=== PATIENT | female | born 1960 | race Caucasian/White ===

== ENCOUNTER 2020-10-31 07:30 | Outpatient (REF) | payer BC, SELFPAY ==
--- NOTE | ~2020-10-31 | MM_ITS ---
EXAMINATION: MM SCREENING DIGITAL BREAST TOMOSYNTHESIS, BILATERAL CLINICAL INFORMATION: Screening. Asymptomatic. The lifetime risk of breast cancer based on the Tyrer-Cuzick Model is 27.4%. Additional annual screening with breast MRI may be of benefit in women with Score of 20% or greater. COMPARISON: Mammography: October 31, 2019 and studies dating back to January 30, 2012 TECHNIQUE: Digital breast tomosynthesis is performed in both the craniocaudal and mediolateral oblique views along with computer-aided detection (CAD). Synthesized 2D images are generated from the tomosynthesis. Left exaggerated craniocaudal view also performed. FINDINGS: The breasts are heterogeneously dense, which may obscure small masses (ACR BI-RADS breast composition Category c). There are no significant masses, abnormal calcifications, or other abnormalities. MM/MM tomosynthesis screening BI IMPRESSION: There are no significant changes from prior study. ASSESSMENT: BI-RADS 1: Negative RECOMMENDATION: Routine annual mammography screening. This patient's information was entered into a reminder system with a target due date for their next mammogram.
== END 2020-10-31 07:31 | disposition home or self-care (01) ==
LOC: HO.MAMMO 07:30
PROVIDERS: PCP Internal Medicine; Visit Provider Internal Medicine
DX: Z12.31 Encounter for screening mammogram for malignant neoplasm of breast (principal)
CPT/HCPCS: 77063; 77067

== ENCOUNTER 2021-07-31 07:37 | Outpatient (REF) | payer BC, SELFPAY | END 2021-07-31 07:38 | disposition home or self-care (01) | LOC: HO.LAB 07:37 | PROVIDERS: PCP Internal Medicine; Visit Provider Internal Medicine | DX: Z20.822 Contact with and (suspected) exposure to COVID-19 (principal) | CPT/HCPCS: C9803; U0003; U0005 ==

== ENCOUNTER 2021-11-11 07:41 | Outpatient (REF) | payer BC, SELFPAY ==
--- NOTE | ~2021-11-11 | MM_ITS ---
EXAMINATION: MM SCREENING DIGITAL BREAST TOMOSYNTHESIS, BILATERAL CLINICAL INFORMATION: Screening. Asymptomatic. The lifetime risk of breast cancer based on the Tyrer-Cuzick Model is 19.7%. COMPARISON: Mammography: 10/31/2020, 10/31/2019, 10/26/2019, 10/18/2018, 10/15/2017 TECHNIQUE: Digital breast tomosynthesis is performed in both the craniocaudal and mediolateral oblique views along with computer-aided detection (CAD). Synthesized 2D images are generated from the tomosynthesis. FINDINGS: The breasts are heterogeneously dense, which may obscure small masses (ACR BI-RADS breast composition Category c). Parenchymal pattern is similar to prior studies. There is no interval mass or architectural abnormality or developing density. Right breast has biopsy clip marker mid upper outer quadrant. There are stable calcifications posterior upper outer left breast along with pseudo calcifications from digital processing artifact. The axilla and skin contours are unremarkable. MM/MM tomosynthesis screening BI IMPRESSION: There are no significant changes from prior exams. ASSESSMENT: BI-RADS 2: Benign RECOMMENDATION: Routine annual mammography screening. This patient's information was entered into a reminder system with a target due date for their next mammogram.
== END 2021-11-11 07:42 | disposition home or self-care (01) ==
LOC: HO.MAMMO 07:41
PROVIDERS: PCP Internal Medicine; Visit Provider Internal Medicine
DX: Z12.31 Encounter for screening mammogram for malignant neoplasm of breast (principal)
CPT/HCPCS: 77063; 77067

== ENCOUNTER 2022-09-11 07:21 | Outpatient (REF) | payer BC, SELFPAY ==
[2022-09-11 07:25] LABS: MANUAL DIFF FLAG NO
[2022-09-11 08:13] LABS: Basophils Absolute Auto 0.1 X10*3/uL (0.0-0.2); Basophils Percent Auto 1.4 % (0-2); Eosinophils Absolute Auto 0.2 X10*3/uL (0.0-0.4); Eosinophils Percent Auto 4.4 % (0-4); Hematocrit 44.8 % (37.0-47.0); Hemoglobin 14.4 g/dl (12.0-16.0); Imm Gran Abs Auto 0.01 X10*3/uL (0.00-0.03); Imm Gran Pct Auto 0.2 % (0.0-0.4); Lymphocytes Absolute Auto 1.7 X10*3/uL (1.2-4.9); Lymphocytes Percent Auto 40.3 % (20-40); Mean Corpuscular HGB Conc 32.1 g/dl (31.0-35.0); Mean Corpuscular Hemoglobin 29.4 pg (27.0-33.0); Mean Corpuscular Volume 91.4 fL (80.0-98.0); Mean Platelet Volume 9.5 fL (9.4-12.3); Monocytes Absolute Auto 0.3 X10*3/uL (0.1-1.2); Monocytes Percent Auto 7.7 % (2-11); Platelet Count 280 X10*3/uL (160-400); Red Cell Distribution Width 12.3 % (11.0-16.0); White Blood Count 4.3 X10*3/uL (4.8-10.8)
[2022-09-11 08:42] LABS: Alanine Aminotransferase 12 U/L (0-31); Albumin Level 4.5 g/dL (3.5-5.0); Alkaline Phosphatase 57 U/L (39-117); Anion Gap 13 (12-20); Aspartate Amino Transferase 20 U/L (5-31); Blood Urea Nitrogen 17 mg/dL (9-16); Calcium 9.7 mg/dL (8.4-10.2); Carbon Dioxide 27 mmol/L (22-29); Chloride 106 mmol/L (96-108); Cholesterol 245 mg/dL; Estimated Glomerular Filt Rate > 60; Glucose Fasting 82 mg/dL (60-99); HDL Cholesterol 70 mg/dL; LDL Cholesterol Calculated 157 mg/dl; Potassium 4.6 mmol/L (3.3-5.1); Sodium 141 mmol/L (135-145); Triglycerides 93 mg/dL
[2022-09-11 08:58] LABS: Free T4 (Free Thyroxine) 1.05 ng/dL (0.71-1.85)
== END 2022-09-11 07:22 | disposition home or self-care (01) ==
LOC: HO.LAB 07:21
PROVIDERS: PCP Internal Medicine; Visit Provider Internal Medicine
DX: Z00.00 Encounter for general adult medical examination without abnormal findings (principal)
CPT/HCPCS: 36415; 80053; 80061; 84439; 84443; 85025

== ENCOUNTER 2022-12-16 07:35 | Outpatient (REF) | payer BC, SELFPAY ==
--- NOTE | ~2022-12-16 | MM_ITS ---
EXAMINATION: MM SCREENING DIGITAL BREAST TOMOSYNTHESIS, BILATERAL CLINICAL INFORMATION: Screening. Asymptomatic. The lifetime risk of breast cancer based on the Tyrer-Cuzick Model is 20.8%. Additional annual screening with breast MRI may be of benefit in women with a score of 20% or greater. COMPARISON: Mammography: November 11, 2021 and studies dating back to July 08, 2014 TECHNIQUE: Digital breast tomosynthesis is performed in both the craniocaudal and mediolateral oblique views along with computer-aided detection (CAD). Synthesized 2D images are generated from the tomosynthesis. FINDINGS: The breasts are extremely dense, which lowers the sensitivity of mammography (ACR BI-RADS breast composition Category d). There are no significant masses, abnormal calcifications, or other abnormalities. MM/MM tomosynthesis screening BI IMPRESSION: No significant changes from prior exam. ASSESSMENT: BI-RADS 1: Negative RECOMMENDATION: Routine annual mammography screening. This patient's information was entered into a reminder system with a target due date for their next mammogram.
== END 2022-12-16 07:36 | disposition home or self-care (01) ==
LOC: HO.MAMMO 07:35
PROVIDERS: Visit Provider Internal Medicine
DX: Z12.31 Encounter for screening mammogram for malignant neoplasm of breast (principal)
CPT/HCPCS: 77063; 77067

== ENCOUNTER 2022-12-25 07:34 | Outpatient (REF) | payer BC, SELFPAY ==
[2022-12-25 08:51] LABS: Cholesterol 247 mg/dL; HDL Cholesterol 75 mg/dL; LDL Cholesterol Calculated 158 mg/dl; Triglycerides 71 mg/dL
== END 2022-12-25 07:35 | disposition home or self-care (01) ==
LOC: HO.LAB 07:34
PROVIDERS: PCP Internal Medicine; Visit Provider Internal Medicine
DX: E78.00 Pure hypercholesterolemia, unspecified (principal)
CPT/HCPCS: 36415; 80061

== ENCOUNTER 2023-04-29 12:18 | Outpatient (REF) | payer BC, SELFPAY ==
[2023-04-29 14:20] LABS: Appearance Urine Cloudy; Color Urine Yellow; Glucose Urine UA Negative (Negative); Leukocyte Esterase Urine Trace (Negative); Nitrite Urine Negative (Negative); PH 6.5 (5.0-9.0); Specific Gravity - Urine 1.015 (1.005-1.025); UMIC TRIGGER UACC YES; Urine Blood Trace (Negative); Urine Ketones Negative (Negative); Urine Protein Negative (Neg-Trace)
[2023-04-29 14:32] LABS: Bacteria Urine 4+ (None Seen); Hyaline Casts Urine 0-2 /LPF (0-2); Squamous Epithelial Cell Urine 0-2 /HPF (0-2); UACC Culture Trigger YES; WBC Urine >50 /HPF (0-5)
== END 2023-04-29 12:19 | disposition home or self-care (01) ==
LOC: HO.LAB 12:18
PROVIDERS: PCP Internal Medicine; Visit Provider Internal Medicine
DX: R30.0 Dysuria (principal)
CPT/HCPCS: 81001; 81003; 87086; 87088; 87186

== ENCOUNTER 2023-12-21 07:57 | Outpatient (REF) | payer BC, SELFPAY ==
--- NOTE | ~2023-12-21 | MM_ITS ---
EXAMINATION: MM SCREENING DIGITAL BREAST TOMOSYNTHESIS, BILATERAL CLINICAL INFORMATION: Screening. Asymptomatic. COMPARISON: Mammography: This study is compared with prior exams dating back to 2019. TECHNIQUE: Digital breast tomosynthesis is performed in both the craniocaudal and mediolateral oblique views along with computer-aided detection (CAD). Synthesized 2D images are generated from the tomosynthesis. FINDINGS: The breasts are extremely dense, which lowers the sensitivity of mammography (ACR BI-RADS breast composition Category d). There are no significant masses, abnormal calcifications, or other abnormalities. There is a tissue marker present in the upper outer quadrant of the right breast from prior benign percutaneous biopsy. There are unchanged, benign calcifications in the upper outer quadrant of the left breast. MM/MM tomosynthesis screening BI IMPRESSION: No mammographic evidence of malignancy. ASSESSMENT: BI-RADS BI-RADS 2 - Benign Findings RECOMMENDATION: Routine annual mammography screening. 1 year F/U This examination should not preclude the clinical evaluation of a suspicious palpable abnormality. This patient's information was entered into a reminder system with a target due date for their next mammogram.
== END 2023-12-21 07:58 | disposition home or self-care (01) ==
LOC: HO.MAMMO 07:57
PROVIDERS: Absent Provider Obstetrics & Gynecology; PCP Internal Medicine; Visit Provider Internal Medicine
DX: Z12.31 Encounter for screening mammogram for malignant neoplasm of breast (principal)
CPT/HCPCS: 77063; 77067

== ENCOUNTER → 2023-12-21 08:00 | Outpatient (BNV) | payer BC, SELFPAY | PROVIDERS: Absent Provider Obstetrics & Gynecology; PCP Internal Medicine; Visit Provider Radiology Diagnostic Radiology | DX: Z12.31 Encounter for screening mammogram for malignant neoplasm of breast (principal) | CPT/HCPCS: 77063; 77067 ==

== ENCOUNTER 2024-05-17 15:59 | Outpatient (AMB) | payer BC, SELFPAY ==
--- NOTE | 2024-05-17 16:11 | A.OFFPC_ITS ---
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 Will order labs. Mammo is up to date. Due for colon screen, will refer to GI. Pt c/o palpitations. She notices this mostly when running on the treadmill. Will do an EKG in office. Will also order holter. [facility] Social History Housing: House Patient Tobacco Use Status: Never used Tobacco e-Cigarette/Vaping Use: Never Used service: No Current occupational status: employed Current occupational exposures/hazards: No Cognitive needs: No Hearing needs: No Vision needs: Yes Questionnaire PHQ-9 Over the last 2 weeks, how often have you been bothered by any of the following problems? 1. Little interest or pleasure in doing things: not at all 2. Feeling down, depressed, or hopeless: not at all 3. Trouble falling or staying asleep, or sleeping too much: not at all 4. Feeling tired or having little energy: not at all 5. Poor appetite or overeating: not at all 6. Feeling bad about yourself - or that you are a failure or have let yourself or your family down: not at all 7. Trouble concentrating on things, such as reading the newspaper or watching television: not at all 8. Moving or speaking so slowly that other people could have noticed. Or the opposite - being so fidgety or restless that you have been moving around a lot more than usual: not at all 9. Thoughts that you would be better off or of hurting yourself in some way: not at all Total score: 0 Depression Screening Interpretation: Negative Depression Screening Done: Yes 87264 - PHQ-9 Billing: Yes Source: Developed by Drs. Manuel Yo, Margoth Raines, Dao Escobar and colleagues, with an educational mary from [employer]. Thrive Questionnaire I am a: Patient Within the past 12 months, did the food you bought not last and you didn't have the money to get more?: Never true Within the past 12 months, did you worry whether your food would run out before you got money to buy more?: Never true Do you have trouble paying for medicines?: No Do you have trouble getting transportation to medical appointments?: No Do you have trouble paying your heating and electricity bill?: No Do you have trouble taking care of your child, family member or friend?: No Do you have trouble with day-to-day activities such as bathing, preparing meals, shopping, managing finances, etc.?: No Are you interested in more education?: No Please select the resources that you would like help with: None Currently or been in a relationship where the following occur: No concerns repo rted THRIVE Score: 0 AUDIT C Alcohol Use Questionnaire (AUDIT-C) 1. How often do you have a drink containing alcohol?: 2-3 times a week 2. How many drinks containing alcohol do you have on a typical day when you are drinking?: 3 or 4 3. How often do you have six or more drinks on one occasion?: Monthly Total Score: 6 Score Reviewed/Action Taken: No KALEE-7 AMB Questionnaire KALEE-7 Date KALEE - 7 assessed: 05/17/24 Feeling nervous, anxious, or on edge: 0 = Not at all Not being able to stop or control worryin = Not at all Worrying too much about different things: 0 = Not at all Trouble relaxin = Not at all Being so restless that it is hard to sit still: 0 = Not at all Becoming easily annoyed or irritable: 0 = Not at all Feeling afraid as if something awful might happen: 0 = Not at all Total KALEE-7 score (0-4 normal; 5-9 mild; 10-14 moderate; 15-21 severe): 0 Source: Developed by Drs. Manuel Yo, Margoth Raines, Dao Escobar and colleagues, with an educational mary from [employer]. KALEE-7 Assessment Billing KALEE-7 Assessment Tool: KALEE-7 Assessment 83554 Review of Systems Const Denies chills and Denies fever(s) Eyes Denies blurry vision ENT Denies vertigo, Denies dizziness and Denies sore throat Card Denies chest pain at rest, Denies chest pain with activity, Denies diaphoresis, Denies dyspnea and Denies dyspnea on exertion Resp Denies cough, Denies dyspnea, Denies dyspnea on exertion and Denies wheezing GI Denies abdominal pain, Denies melena, Denies hematochezia, Denies constipation, Denies diarrhea and Denies loose stools Denies hematuria Musc Denies numbness and Denies tingling Skin/Breast Denies lesions Neuro Denies vertigo, Denies dizziness, Denies numbness and Denies tingling Psych Denies anxiety, Denies depression, Denies homicidal ideation, Denies suicidal ideation and Denies other (substance abuse) Aller/Immun Denies wheezing Physical exam (Primary Care) Vital Signs: Last Vital Signs Pulse 51 05/17/24 16:21 BP 112/68 05/17/24 16:21 Pulse Ox 97 05/17/24 16:21 Oxygen Delivery Method Room Air 05/17/24 16:21 BMI result Body Mass Index 18.0 Tobacco/Smoking Status: Tobacco use Status Tobacco use date assessed 05/17/24 05/17/24 16:28 Patient Tobacco Use Status Never used Tobacco 05/17/24 16:28 e-Cigarette/Vaping Use Never Used 05/17/24 16:28 PHQ-9: PHQ-9 Score PHQ-9: Total score 0 05/17/24 16:28 Depression Screening Interpretation: Negative Currently or been in a relationship where the following occur: No concerns reported Const General: cooperative Nutritional Appearance: well nourished Orientation/consciousness: patient oriented x3 HENMT Head: Yes normal to inspection, Yes normocephalic and Yes atraumatic Ears: TM's normal bilaterally Eyes General: appearance normal, both eyes and all related structures Alignment and Position: alignment normal and position normal Neck Other: right thyroid ? nodule/enlarged Neck: Yes normal visual inspection, Yes no lymphadenopathy and Yes supple Resp Effort & Inspection: normal respiratory effort Auscultation: clear to auscultation bilaterally Cardio Rate: regular rate Rhythm: regular rhythm Heart sounds: S1 normal heart sound present, S2 normal heart sound present and no murmurs GI Palpation (GI): Soft to palpation and nontender Auscultation: normal bowel sounds Skin Rashes: no rashes Neuro General: patient oriented x3, moves all extremities, no focal motor deficits and deep tendon reflexes 2+ bilaterally Romberg Test: Negative Psych Appearance: grossly normal Mental Status: mental status grossly normal Speech and movement: Normal speech and movement present Affect: normal affect Attitude: cooperative Thought process: Normal thought process present Thought content: Normal thought content present Insight: Good insight present (Psych) Judgement: Good judgement present (Psych) Assessment and Plan Assessment & Plan (1) Physical exam: Code(s): Z00.00 - Encounter for general adult medical examination without abnormal findings Plan: Labs ordered (2) Postmenopausal: Code(s): Z78.0 - Asymptomatic menopausal state Plan: Vitamin D ordered (3) Screening for colon cancer: Code(s): Z12.11 - Encounter for screening for malignant neoplasm of colon (4) Palpitations: Code(s): R00.2 - Palpitations Plan: holter ordered (5) Thyroid nodule: Code(s): E04.1 - Nontoxic single thyroid nodule Plan: US ordered Plan The patient agreed to the use of a manager medical writing for this encounter. Scribed for OMERO Urias- by Katerina Marion manager medical writing, on 05/17/2024 at 16:35 EST. Orders: Orders Comprehensive [place]. Panel Fast Today Z00.00 - Encounter for general adult medical examination without abnormal findings TSH reflex Free T4 Today Z00.00 - Encounter for general adult medical examination without abnormal findings Lipid Panel Today Z00.00 - Encounter for general adult medical examination without abnormal findings Vitamin D 25-OH Total Today Z78.0 - Asymptomatic menopausal state ECG 3 day holter monitor Today R00.2 - Palpitations US thyroid Today E04.1 - Nontoxic single thyroid nodule Complete Blood Count Auto Diff Today Z00.00 - Encounter for general adult medical examination without abnormal findings UA CC w/rflx Micro + Cult Today Z00.00 - Encounter for general adult medical examination without abnormal findings AMB EKG-In Office Today R00.2 - Palpitations Referrals Gastroenterology Referral Z12.11 - Encounter for screening for malignant neoplasm of colon Coding Level of Care Code New Pt Prev Care 40-64y(30587) Diagnoses Physical exam Z00.00 Postmenopausal Z78.0 Screening for colon cancer Z12.11 Palpitations R00.2 Thyroid nodule E04.1 Additional Codes KALEE-7 Assessment Billing - KALEE-7 Assessment Tool: KALEE-7 Assessment [id number] ([id number])
[2024-05-17 16:21] VITALS: BP 112/68; PULSE 51; O2SAT 97; BMI 18.0
== END 2024-05-17 17:03 | disposition home or self-care (01) ==
PROVIDERS: PCP Internal Medicine; Visit Provider Nurse Practitioner Family
DX: Z00.00 Encounter for general adult medical examination without abnormal findings (principal); Z78.0 Asymptomatic menopausal state; Z12.11 Encounter for screening for malignant neoplasm of colon; R00.2 Palpitations; E04.1 Nontoxic single thyroid nodule

== ENCOUNTER → 2024-05-17 15:59 | Outpatient (BNVA) | payer BC, SELFPAY | PROVIDERS: PCP Internal Medicine; Visit Provider Nurse Practitioner Family | DX: Z00.01 Encounter for general adult medical examination with abnormal findings (principal); R00.2 Palpitations; E04.1 Nontoxic single thyroid nodule; Z78.0 Asymptomatic menopausal state | CPT/HCPCS: 96127 ==

== ENCOUNTER 2024-06-01 06:16 | Outpatient (REF) | payer BC, SELFPAY ==
[2024-06-01 10:05] LABS: MANUAL DIFF FLAG NO
[2024-06-01 10:07] LABS: Basophils Absolute Auto 0.1 X10*3/uL (0.0-0.2); Basophils Percent Auto 1.6 % (0-2); Eosinophils Absolute Auto 0.1 X10*3/uL (0.0-0.4); Eosinophils Percent Auto 4.2 % (0-4); Hematocrit 39.9 % (37.0-47.0); Lymphocytes Absolute Auto 1.3 X10*3/uL (1.2-4.9); Lymphocytes Percent Auto 42.3 % (20-40); Mean Corpuscular HGB Conc 32.6 g/dl (31.0-35.0); Mean Corpuscular Hemoglobin 30.4 pg (27.0-33.0); Mean Corpuscular Volume 93.2 fL (80.0-98.0); Mean Platelet Volume 10.3 fL (9.4-12.3); Monocytes Absolute Auto 0.2 X10*3/uL (0.1-1.2); Monocytes Percent Auto 7.1 % (2-11); Neutrophils Absolute Auto 1.4 x10*3/uL (2.0-8.3); Neutrophils Percent Auto 44.8 % (45-73); Platelet Count 229 X10*3/uL (160-400); Red Blood Count 4.28 X10*6/uL (4.20-5.50); Red Cell Distribution Width 13.1 % (11.0-16.0); White Blood Count 3.1 X10*3/uL (4.8-10.8)
[2024-06-01 10:08] LABS: Appearance Urine Clear; Color Urine Yellow; Glucose Urine UA Negative (Negative); Leukocyte Esterase Urine Negative (Negative); Nitrite Urine Negative (Negative); PH 5.5 (5.0-9.0); UMIC TRIGGER UACC YES; Urine Blood Trace (Negative); Urine Ketones Negative (Negative); Urine Protein Negative (Neg-Trace)
[2024-06-01 10:20] LABS: Bacteria Urine None Seen (None Seen); Hyaline Casts Urine 0-2 /LPF (0-2); RBC Urine 0-2 /HPF (0-2); Squamous Epithelial Cell Urine 0-2 /HPF (0-2); WBC Urine 0-5 /HPF (0-5)
[2024-06-01 10:37] LABS: Alanine Aminotransferase 15 U/L (0-31); Albumin Level 4.2 g/dL (3.5-5.0); Alkaline Phosphatase 59 U/L (39-117); Anion Gap 12 (12-20); Aspartate Amino Transferase 25 U/L (5-31); Bilirubin Total 0.6 mg/dL (0.0-1.0); Blood Urea Nitrogen 21 mg/dL (9-16); Calcium 9.4 mg/dL (8.4-10.2); Carbon Dioxide 25 mmol/L (22-29); Chloride 108 mmol/L (96-108); Cholesterol 218 mg/dL (<200); Estimated Glomerular Filt Rate > 60; Glucose Fasting 96 mg/dL (60-99); HDL Cholesterol 82 mg/dL (>40); LDL Cholesterol Calculated 124 mg/dL (<100); Potassium 4.4 mmol/L (3.3-5.1); Sodium 141 mmol/L (135-145); Total Protein 6.8 g/dL (6.5-8.0); Triglycerides 60 mg/dL (<150)
[2024-06-01 10:41] LABS: TSH reflex Free T4 1.17 uIU/mL (0.32-4.0); Vitamin D 25-OH Total 63.9 ng/mL (>30)
== END 2024-06-01 06:17 | disposition home or self-care (01) ==
LOC: HO.HMGCLDS 06:16
PROVIDERS: PCP Nurse Practitioner Family; Visit Provider Nurse Practitioner Family
DX: Z00.00 Encounter for general adult medical examination without abnormal findings (principal); Z78.0 Asymptomatic menopausal state
CPT/HCPCS: 36415; 80053; 80061; 81001; 81003; 82306; 84443; 85025

== ENCOUNTER → 2024-06-02 07:22 | Outpatient (REF) | payer BC, SELFPAY ==
--- NOTE | ~2024-06-02 | US_ITS ---
EXAMINATION: US THYROID CLINICAL INFORMATION: Nontoxic single thyroid nodule. COMPARISON: None available. TECHNIQUE: Linear transducer grayscale and color Doppler examination with attention to the region of the thyroid. FINDINGS: SIZE: Measurements of the thyroid lobes and nodules are given in sagittal, anteroposterior and transverse dimensions respectively. Right Thyroid Lobe: 5.2 x 1.9 x 1.9 cm, volume 10.0 mL. Parenchyma: The gland echotexture is homogeneous. Thyroid vascularity is normal. Left Thyroid Lobe: 4.4 x 1.2 x 1.2 cm, volume 3.3 mL. Parenchyma: The gland echotexture is homogeneous. Thyroid vascularity is normal. Isthmus: 0.09 cm in maximum AP dimension. Estimated total number of nodules greater than or equal to 1 cm: 1. Platemaker nodules are described as follows: 1. Location: Right mid/lower pole. Size: 2.7 x 1.3 x 1.9 cm, volume 3.3 mL. Nodule characteristics: Composition: Solid/almost completely solid (2). Echogenicity: Isoechoic (1). Shape: Not taller than wide (0). Margins: Smooth (0). Echogenic Foci: Punctate echogenic foci (3). ACR TI-RADS total points: 6 ACR TI-RADS category: 4 NODES: No lymphadenopathy is seen in the tissue surrounding the thyroid gland. US/US thyroid IMPRESSION: A dominant nodule in the right middle Pole 2.7 cm TR 4 nodule . Given its size and ACR TI-RADS category, this nodule meets the ACR criteria recommendation for FNA. FNA recommended. Findings being called to the referring provider's office. ACR TI-RADS RECOMMENDATION REFERENCE: Ultrasound-guided fine-needle aspiration, followup ultrasound, no further follow up. * TR1 (0 point) and TR2 (2 points): No FNA or follow up. * TR3 (3 points): FNA if more than or equal to 2.5 cm in maximum dimension, followup ultrasound in 1, 3 and 5 years if 1.5 to 2.4 cm in maximum dimension. * TR4 (4-6 points): FNA if more than or equal to 1.5 cm in maximum dimension, followup ultrasound in 1, 2, 3 and 5 years if 1 to 1.4 cm in maximum dimension. * TR5 (more than or equal to 7 points): FNA if more than or equal to 1 cm in maximum dimension, followup ultrasound every year for 5 years if 0.5 to 0.9 cm in maximum dimension. * TR3, TR4 or TR5 nodules that are below the size threshold for followup receive no follow up. Electronically signed by: Yaya Marinelli MD 07/14/2024 07:55 AM [facility] [place]
--- NOTE | 2024-06-02 07:26 | HM_ITS ---
* Total monitoring time 3 days. * Underlying rhythm is sinus with an average rate of 65/Min. * Rare supraventricular ectopy. Short runs noted. Longest 36 seconds. Maximum rate 178/Min. Suspect atrial tachycardia. * Rare ventricular ectopy. * No significant pauses or high-grade AV blocks. * Rapid/fast heartbeat in patient diary correlates with tachycardia episodes and also with sinus rhythm. MTDD
== END ==
LOC: HO.CARD 07:22
PROVIDERS: PCP Nurse Practitioner Family; Visit Provider Nurse Practitioner Family
DX: E04.1 Nontoxic single thyroid nodule (principal); R00.2 Palpitations
CPT/HCPCS: 76536; 93242

== ENCOUNTER → 2024-06-02 07:26 | Outpatient (BNV) | payer BC, SELFPAY | PROVIDERS: PCP Nurse Practitioner Family; Visit Provider Internal Medicine | DX: I47.10 Supraventricular tachycardia, unspecified (principal) | CPT/HCPCS: 93244 ==

== ENCOUNTER 2024-06-13 10:55 | Outpatient (AMB) | payer BC, SELFPAY ==
--- NOTE | 2024-06-13 10:57 | AM.OFFWIN_ITS ---
Intake Vital Signs 06/13/24 10:58 Height 5 ft 9 in Weight 119 lb BMI 17.6 BP 120/80 Blood Pressure Location Lt brachial Position Sitting Pulse 54 Pulse Source Pulse Oximeter Pulse Oximetry (%) 99 Oxygen Delivery Method Room Air Intake Visit Reasons: EP RT arm aching since blood drawn Intake Note: Patient here because she had blood work done about 2 weeks ago and her arm is still very sore/aching. Patient Tobacco Use Status: Never used Tobacco Allergies No Known Allergies [No Known Allergies*] Allergy (Unverified 06/13/24 10:59) Do you need a note to return to daycare/school/sports/work: No HPI HPI Comments History of Present Illness Details Patient is a 63-year-old female complaining of right arm achiness. She states she had blood drawn in that arm 2 weeks ago and that is when this all started. She tells me it is not actually painful it just more of a heavy and dull ache. She denies any loss of strength or sensation in her right arm. She denies any fevers. She states when she moves her arms certain ways it will aggravate the ache. [facility] Social History Housing: House Patient Tobacco Use Status: Never used Tobacco e-Cigarette/Vaping Use: Never Used service: No Current occupational status: employed Current occupational exposures/hazards: No Cognitive needs: No Hearing needs: No Vision needs: Yes Review of Systems Const All systems reviewed & are unremarkable except as noted in HPI and below Physical Exam Vital Signs: Last Vital Signs Pulse 54 06/13/24 10:58 BP 120/80 06/13/24 10:58 Pulse Ox 99 06/13/24 10:58 Oxygen Delivery Method Room Air 06/13/24 10:58 BMI result Body Mass Index 17.6 Const General: cooperative, healthy appearing, comfortable, no acute distress and well developed Orientation/consciousness: patient oriented x3 Limitations: no limitations HEENT Head: Yes normal to inspection Neck Neck: Yes normal visual inspection and Yes supple Neuro General: patient oriented x3 Extrem Right upper extremity: normal to inspection, full ROM, normal capillary refill, elbow/forearm Details: tenderness (along veins of forearm), normal ROM, ecchy mosis forearm mid anterior Details: single and distal pulses intact; no unusual warmth, no abrasions, no lacerations and no deformity and Extremity exam: right hand Details: normal to inspection, neuromotor exam normal, neurosensory exam normal and normal ROM of fingers Assessment & Plan Assessment & Plan (1) Right forearm pain: Code(s): M79.631 - Pain in right forearm Plan: Discussed with patient's PCP, we will send note to him to order ultrasound of the forearm. In the meanwhile, recommended she use warm compress in the area. If her achiness resolves she can cancel the ultrasound. Plan see above Coding Level of Care Code Est Pt Level 3 (56630) Diagnoses Right forearm pain M79.631
[2024-06-13 10:58] VITALS: BP 120/80; PULSE 54; O2SAT 99; BMI 17.6
== END 2024-06-13 11:07 | disposition home or self-care (01) ==
PROVIDERS: PCP Nurse Practitioner Family; Visit Provider Physician Assistant
DX: M79.631 Pain in right forearm (principal)

== ENCOUNTER → 2024-06-13 10:55 | Outpatient (BNVA) | payer BC, SELFPAY | PROVIDERS: PCP Nurse Practitioner Family; Visit Provider Physician Assistant ==

== ENCOUNTER 2024-06-14 12:50 | Outpatient (REF) | payer BC, SELFPAY ==
--- NOTE | ~2024-06-14 | US_ITS ---
EXAMINATION: US TRIPLEX UPPER EXTREMITY, RIGHT CLINICAL INFORMATION: Pain in right forearm COMPARISON: None available. TECHNIQUE: Color-flow triplex imaging with spectral analysis and compression Doppler was performed on the right upper extremity. FINDINGS: The right internal jugular, subclavian, and axillary veins are patent and free of thrombus. The imaged segment of the right brachiocephalic vein is patent. Spectral doppler waveforms are normal. The brachial, basilic, cephalic, radial, and ulnar veins are patent and compressible. US/US venous duplex UE RT IMPRESSION: No evidence of deep venous thrombosis involving the right upper extremity. Electronically signed by: Brenda Lindsay DO 06/14/2024 04:51 PM EDT
== END 2024-06-14 12:51 | disposition home or self-care (01) ==
LOC: HO.US 12:50
PROVIDERS: PCP Nurse Practitioner Family; Visit Provider Nurse Practitioner Family
DX: M79.631 Pain in right forearm (principal)
CPT/HCPCS: 93971

== ENCOUNTER 2024-06-27 08:02 | Outpatient (AMB) | payer BC, SELFPAY ==
[2024-06-27 08:05] VITALS: BP 110/60; PULSE 56; TEMP 36.4; O2SAT 100; BMI 17.4
--- NOTE | 2024-06-27 08:05 | MHC.OFFWIV ---
Intake Vital Signs 06/27/24 08:05 Height 5 ft 9 in Weight 118 lb BMI 17.4 BP 110/60 Blood Pressure Location Lt brachial Position Sitting Pulse 56 Pulse Source Pulse Oximeter Temp 97.6 F Temp Source Oral Pulse Oximetry (%) 100 Oxygen Delivery Method Room Air Intake Visit Reasons: EP-rt underarm sore pain going to the rt breast Intake Note: Pt is here today Rt underarn sore pain: pt says she had blood draw recent and it been hurting since Patient Tobacco Use Status: Never used Tobacco Allergies No Known Allergies [No Known Allergies*] Allergy (Unverified 06/27/24 08:07) HPI EP-rt underarm sore pain going to the rt breast HPI Details This note is constructed using voice recognition software. While every effort has been made to ensure accuracy, clutch rebuilder errors may have been included. The patient is a 63 year old female who presents to the clinic today with right axilla and breast tenderness for the past 2-3 weeks. She reports a recent MRI of her arm after a blood draw with hematoma and resultant pain, and after that pain resolved, the axilla and breast pain started. She is UTD on her mammograms, having last in November. She had a clinical breast exam approximately 1 month ago. She does not do self breast exams, and has not noticed any change in her nipple or discharge. She denies numbness, tingling in the arm. [facility] Social History Housing: House Patient Tobacco Use Status: Never used Tobacco e-Cigarette/Vaping Use: Never Used service: No Current occupational status: employed Current occupational exposures/hazards: No Cognitive needs: No Hearing needs: No Vision needs: Yes Review of Systems Const All systems reviewed & are unremarkable except as noted in HPI and below Physical Exam Vital Signs: Last Vital Signs Temp 97.6 F 06/27/24 08:05 Pulse 56 06/27/24 08:05 BP 110/60 06/27/24 08:05 Pulse Ox 100 06/27/24 08:05 Oxygen Delivery Method Room Air 06/27/24 08:05 BMI result Body Mass Index 17.4 Const General: cooperative, healthy appearing, comfortable, no acute distress and well developed Orientation/consciousness: patient oriented x3 Limitations: no limitations Chest Other: Tender to palpation along right tail of Jasmine without palpable mass. Lipoma present to right chest wall. No palpable lymphadenopathy. Chest palpation & inspection: normal inspection of the chest Breast/axilla palpation: normal palpation of the breasts and normal palpation of the axillae Skin General skin exam: no rashes or lesions noted Neuro General: patient oriented x3 Extrem Other: Strength 5/5, equal bilaterally in arms. Distal neurovascular exam intact. Full range of motion. General: Yes normal to inspection Assessment & Plan Assessment & Plan (1) Pain in right axilla: Code(s): M79.621 - Pain in right upper arm Plan: Tender to palpation in right axilla at tells spins, without palpable mass or lymphadenopathy. Recommend follow with primary care provider for ultrasound for evaluation should symptoms persist. Message to primary care team to facilitate treatment plan. Plan See above for full details and plan. Coding Level of Care Code Est Pt Level 3 (92656) Diagnoses Pain in right axilla M79.621
== END 2024-06-27 08:49 | disposition home or self-care (01) ==
PROVIDERS: PCP Nurse Practitioner Family; Visit Provider Registered Nurse
DX: M79.621 Pain in right upper arm (principal)

== ENCOUNTER 2024-06-27 08:02 | Outpatient (REF) | payer BC, SELFPAY | END 2024-06-27 08:03 | disposition home or self-care (01) | LOC: HO.MAMMO 08:02 | PROVIDERS: PCP Nurse Practitioner Family; Visit Provider Registered Nurse | DX: Z13.89 Encounter for screening for other disorder (principal) ==

== ENCOUNTER → 2024-06-29 12:57 | Outpatient (BNV) | payer BC, SELFPAY | PROVIDERS: PCP Nurse Practitioner Family; Referring Provider Nurse Practitioner Family; Visit Provider Internal Medicine Medical Oncology | DX: D72.819 Decreased white blood cell count, unspecified (principal) | CPT/HCPCS: 99204; 99213 ==

== ENCOUNTER 2024-07-01 11:52 | Outpatient (REF) | payer BC, SELFPAY ==
--- NOTE | ~2024-07-01 | US_ITS ---
EXAMINATION: MM DIAGNOSTIC DIGITAL BREAST TOMOSYNTHESIS, RIGHT Limited right breast and axillary ultrasound. CLINICAL INFORMATION: Right breast pain upper outer breast and axilla. COMPARISON: Mammography: Comparison made with available prior examinations. TECHNIQUE: Digital breast tomosynthesis is performed in both the craniocaudal and mediolateral oblique views along with computer-aided detection (CAD). Synthesized 2D images are generated from the tomosynthesis. Limited right ultrasound. FINDINGS: There are scattered areas of fibroglandular density (ACR BI-RADS breast composition Category b). Marker clip in the upper outer right breast. There are no significant masses, abnormal calcifications, or other abnormalities. Targeted color Doppler right axillary and upper outer quadrant ultrasound demonstrates normal axillary and breast tissue. There is no sonographic abnormality to correlate with the patient's right breast pain. US/US breast RT limited mamm only IMPRESSION: No mammographic or sonographic abnormality to correlate with the patient's right upper outer quadrant breast and axillary pain. Recommend clinical evaluation and follow-up. ASSESSMENT: BI-RADS BI-RADS 1 - Negative RECOMMENDATION: 1 year F/U Results were provided to the patient at time of visit by the technologist. This patient's information was entered into a reminder system with a target due date for their next mammogram. Electronically signed by: Maribeth Malloy DO 07/01/2024 03:40 PM EDT
== END 2024-07-01 11:53 | disposition home or self-care (01) ==
LOC: HO.MAMMO 11:52
PROVIDERS: PCP Nurse Practitioner Family; Visit Provider Internal Medicine
DX: R92.30 Dense breasts, unspecified (principal); N64.4 Mastodynia
CPT/HCPCS: 76642; 77061; 77065

== ENCOUNTER → 2024-07-01 12:30 | Outpatient (BNV) | payer BC, SELFPAY | PROVIDERS: PCP Nurse Practitioner Family; Visit Provider Internal Medicine | DX: N64.4 Mastodynia (principal) | CPT/HCPCS: 76642; 77061; 77065 ==

== ENCOUNTER 2024-07-04 09:53 | Outpatient (AMB) | payer BC, SELFPAY ==
[2024-07-04 10:21] VITALS: BP 112/80; PULSE 72; O2SAT 98; BMI 17.7
--- NOTE | 2024-07-04 10:21 | AM.OFFWIN_ITS ---
Intake Vital Signs 07/04/24 10:21 Height 5 ft 9 in Weight 120 lb BMI 17.7 BP 112/80 Blood Pressure Location Rt brachial Position Sitting Pulse 72 Pulse Source Pulse Oximeter Pulse Oximetry (%) 98 Intake Visit Reasons: EP underarm soreness, rt hand cold/pinky numb Intake Note: pt is here for underarm soreness, right hand cold and pinky feels numbs. had breast U/S and mammo all negative Patient Tobacco Use Status: Never used Tobacco Allergies No Known Allergies [No Known Allergies*] Allergy (Verified 07/04/24 10:21) Do you need a note to return to daycare/school/sports/work: No HPI EP underarm soreness, rt hand cold/pinky numb HPI Details This note is constructed using voice recognition software. While every effort has been made to ensure accuracy, numerical control router operator errors may have been included. The patient is a 63 year old female who presents to the clinic today with bilateral axilla pain with cold sensation intermittently in right 5th finger. She denies any injury to the area. She was last seen 06/27/24 for right axilla and breast pain for 2-3 weeks prior. She reports a recent MRI of her arm after a blood draw with hematoma and resultant pain, and after that pain resolved, the axilla and breast pain started. She since that visit had a diagnostic mammogram and ultrasound, which were normal. She denies fever, chills, cough, shortness of breath, or other URI symptoms. She reports that she works out regularly, but has avoided any activities that would strained the muscles in the past several weeks. The pain is not exacerbated by any particular movement, and not improved with any particular intervention. She does report that early on she tried a Tylenol, but did not take it again, and is unsure if it actually helped her. [facility] Medical History (Updated 06/29/24 @ 17:21 by Manisha Negrete MD) Dense breast tissue on mammogram Family History (Updated 06/29/24 @ 13:02 by Nuvia Sosa) Mother Breast cancer Maternal Aunt Lung cancer Breast cancer Social History (Updated 06/29/24 @ 13:03 by Nuvia Sosa) Household Members: Spouse Housing: House Patient Tobacco Use Status: Never used Tobacco e-Cigarette/Vaping Use: Never Used service: No Current occupational status: employed Current occupational exposures/hazards: No Cognitive needs: No Hearing needs: No Vision needs: Yes Review of Systems Const All systems reviewed & are unremarkable except as noted in HPI and below Physical Exam Vital Signs: Last Vital Signs Pulse 72 07/04/24 10:21 BP 112/80 07/04/24 10:21 Pulse Ox 98 07/04/24 10:21 BMI result Body Mass Index 17.7 Const General: cooperative, healthy appearing, comfortable, no acute distress and well developed Orientation/consciousness: patient oriented x3 Limitations: no limitations HEENT Head: Yes normal to inspection Ears: hearing grossly normal bilaterally General nose exam: Normal external nose present Face and sinus: Yes normal facial exam Eyes General: appearance normal, both eyes and all related structures Neck Neck: Yes normal visual inspection and Yes full ROM Chest Breast/axilla palpation: normal palpation of the axillae and no axillary lymphadenopathy Resp Effort & Inspection: normal respiratory effort and able to speak in complete sentences Auscultation: clear to auscultation bilaterally Cardio Rate: regular rate Rhythm: regular rhythm Heart sounds: normal S1 and S2 GI Inspection: Yes normal to inspection Palpation (GI): Soft to palpation and nontender Skin General skin exam: no rashes or lesions noted Neuro General: patient oriented x3 Extrem Other: Full range of motion of bilateral arms, including elbows, shoulders, as well as her head and neck. General: Yes normal to inspection Assessment & Plan Assessment & Plan (1) Pain in right axilla: Code(s): M79.621 - Pain in right upper arm Plan: Etiology unclear, likely musculoskeletal in nature. Advised patient to try a NSAIDs, heat/ice, and rest for symptomatic management. If symptoms persist she may benefit from physical therapy referral. Advised follow up with PCP with worsening or failure to resolve. Plan See above for full details and plan. Coding Level of Care Code Est Pt Level 3 (56964) Diagnoses Pain in right axilla M79.621
== END 2024-07-04 10:59 | disposition home or self-care (01) ==
PROVIDERS: PCP Nurse Practitioner Family; Visit Provider Registered Nurse
DX: M79.621 Pain in right upper arm (principal)

== ENCOUNTER → 2024-07-04 09:53 | Outpatient (BNVA) | payer BC, SELFPAY | PROVIDERS: PCP Nurse Practitioner Family ==

== ENCOUNTER 2024-07-04 10:59 | Outpatient (REF) | payer BC, SELFPAY ==
[2024-07-04 13:19] LABS: Urine Cytology See Pathology rpt
[2024-07-04 14:15] LABS: Appearance Urine Clear; Color Urine Yellow; Glucose Urine UA Negative (Negative); Leukocyte Esterase Urine Negative (Negative); Nitrite Urine Negative (Negative); PH 5.5 (5.0-9.0); Specific Gravity - Urine <= 1.005 (1.005-1.025); Urine Blood Negative (Negative); Urine Ketones Negative (Negative); Urine Protein Negative (Neg-Trace)
== END 2024-07-04 11:00 | disposition home or self-care (01) ==
LOC: HO.HMGCLDS 10:59
PROVIDERS: PCP Nurse Practitioner Family; Visit Provider Nurse Practitioner Family
DX: Z00.00 Encounter for general adult medical examination without abnormal findings (principal); R31.29 Other microscopic hematuria
CPT/HCPCS: 81003; 87086; 88112

== ENCOUNTER 2024-07-15 08:55 | Outpatient (AMB) | payer BC, SELFPAY ==
--- NOTE | 2024-07-15 09:00 | MHC.OFFVIS ---
Vital Signs 07/15/24 09:10 Height 5 ft 9 in Weight 118 lb 9.739 oz BMI 17.5 BP 120/64 Blood Pressure Location Lt brachial Position Standing Pulse 58 Pulse Source Pulse Oximeter Intake Visit Reasons: Thyroid Nodule-confirmed Intake Note: New patient present today for Thyroid Nodule office visit. Is Project Manager Required: No Accompanied by: Self / Same As Patient Allergies No Known Allergies [No Known Allergies*] Allergy (Verified 07/15/24 09:13) Medication List - Last Reconciled 07/15/24 by Nay Fishman MD atorvastatin 10 mg PO BEDTIME 90 days HPI Comments Details: 63-year-old female here today for initial evaluation of solitary right-sided thyroid nodule. Palpated on physical exam. No prior history. Ultrasound May 2024, I reviewed the images myself which showed a solitary right mid/lower lobe thyroid nodule measuring 2.7 cm in the largest dimension, solid, isoechoic, with macrocalcifications, TR 4 category. Meets criteria for FNA. Patient currently denies heat or cold intolerance, diarrhea or constipation, hair loss, palpitation, anxiety, mood changes, low energy, changes in appearance of eyes or vision changes, tremors, increased diaphoresis or dry skin. ? Lost 10 lbs in the last couple of years. Patient denies any difficulty swallowing, pain on swallowing or voice changes or difficulty breathing. Patient denies any history of childhood neck radiation. Denies having ever used lithium, amiodarone or biotin supplements. Patient denies any family history of thyroid cancer or thyroid disease. Review of systems Constitutional: no fevers, chills or weight loss HEENT: no changes in vision Cardiac: No chest pain, discomfort or palpitations. Pulmonary: No SOB GI:No abdominal pain, no nausea or vomiting, no anorexia, no blood in stool : no burning micturition, dysuria or increase in urinary frequency Neurologic: No dizziness, no weakness in extremities MSK: no back pain or joint stiffness Physical exam General: sitting comfortably in no acute distress HEENT: normocephalic/atraumatic, EOM intact, moist oral mucosa Neck: supple, palpable 2 cm right thyroid nodule , no dorsocervical or supraclavicular fat pads Cardiac: normal heart sounds Pulm: normal breath sounds B/L, no added breath sounds Abd: not distended, no tenderness Extremities: no edema, no signs of myxedema Neuro: AAO x3, Speech: normal, no facial droop, moving all 4 extremities Laboratory Tests 09/11/22 06/01/24 07:24 06:39 TSH 1.30 1.17 Free T4 1.05 US THYROID 06/02 CLINICAL INFORMATION: Nontoxic single thyroid nodule. COMPARISON: None available. TECHNIQUE: Linear transducer grayscale and color Doppler examination with attention to the region of the thyroid. FINDINGS: SIZE: Measurements of the thyroid lobes and nodules are given in sagittal, anteroposterior and transverse dimensions respectively. Right Thyroid Lobe: 5.2 x 1.9 x 1.9 cm, volume 10.0 mL. Parenchyma: The gland echotexture is homogeneous. Thyroid vascularity is normal. Left Thyroid Lobe: 4.4 x 1.2 x 1.2 cm, volume 3.3 mL. Parenchyma: The gland echotexture is homogeneous. Thyroid vascularity is normal. Isthmus: 0.09 cm in maximum AP dimension. Estimated total number of nodules greater than or equal to 1 cm: 1. [place] Farmer nodules are described as follows: 1. Location: Right mid/lower pole. Size: 2.7 x 1.3 x 1.9 cm, volume 3.3 mL. Nodule characteristics: Composition: Solid/almost completely solid (2). Echogenicity: Isoechoic (1). Shape: Not taller than wide (0). Margins: Smooth (0). Echogenic Foci: Punctate echogenic foci (3). ACR TI-RADS total points: 6 ACR TI-RADS category: 4 NODES: No lymphadenopathy is seen in the tissue surrounding the thyroid gland. US/US thyroid IMPRESSION: A dominant nodule in the right middle Pole 2.7 cm TR 4 nodule . Given its size and ACR TI-RADS category, this nodule meets the ACR criteria recommendation for FNA. FNA recommended. Findings being called to the referring provider's office. [facility] Medical History (Updated 06/29/24 @ 17:21 by Manisha Negrete MD) Dense breast tissue on mammogram Family History (Updated 06/29/24 @ 13:02 by Nuvia Sosa) Mother Breast cancer Maternal Aunt Lung cancer Breast cancer Social History (Updated 06/29/24 @ 13:03 by Nuvia Sosa) Household Members: Spouse Housing: House Patient Tobacco Use Status: Never used Tobacco e-Cigarette/Vaping Use: Never Used service: No Current occupational status: employed Current occupational exposures/hazards: No Cognitive needs: No Hearing needs: No Vision needs: Yes Assessment & Plan Assessment & Plan (1) Thyroid nodule: Code(s): E04.1 - Nontoxic single thyroid nodule Category: Medical Plan: 63-year-old female with no significant family history of thyroid cancer, no personal history of head or neck radiation here today to establish care for right solitary thyroid nodule. Ultrasound May 2024, I reviewed the images myself which showed a solitary right mid/lower lobe thyroid nodule measuring 2.7 cm in the largest dimension, solid, isoechoic, with macrocalcifications, TR 4 category. Meets criteria for FNA. Labs from May 2024 shows she is biochemically euthyroid. I explained that it is common to have thyroid nodules. About 95% of the time these nodules are benign. However if the nodule is > 1 cm in size or suspicious on ultrasound then a fine need aspiration biopsy is recommended. We discussed that a FNAB involves 4-5 passes with a small gauge needle and material obtained is sent off for cytology.If the cytopathology is benign then the nodule will be followed annually with repeat ultrasounds. However if it is suspicious or malignant, we will need to discuss further management. Indeterminate cytology can be further investigated with repeat FNA, genetic testing or empiric lobectomy. Malignant cytology is managed with either lobectomy or total thyroidectomy. We discussed briefly that thyroid cancer is, in most patients, an indolent disease that does not affect mortality. We will arrange for FNA of the right mid/lower lobe 2.7 cm nodule at next available opening and patient will follow up with me in clinic thereafter for results and further decision making. Plan: -scheduled for FNA of the right middle lower 2.7 cm nodule and a follow up 1-2 weeks after Plan I spent 45 minutes in reviewing the record, seeing the patient and documenting in the medical record. Orders: Orders US biopsy thyroid Today E04.1 - Nontoxic single thyroid nodule Patient Instructions: We will book you for a right sided thyroid nodule biopsy and a follow up after to discuss results Coding Level of Care Code New Pt Level 4 (49175) Diagnoses Thyroid nodule E04.1 Time Spent (min) 45
[2024-07-15 09:10] VITALS: BP 120/64; PULSE 58; BMI 17.5
== END 2024-07-15 09:38 | disposition home or self-care (01) ==
PROVIDERS: PCP Nurse Practitioner Family; Visit Provider Student in an Organized Health Care Education/Training Program
DX: E04.1 Nontoxic single thyroid nodule (principal)
CPT/HCPCS: 99204

== ENCOUNTER 2024-07-21 08:55 | Outpatient (AMB) | payer BC, SELFPAY ==
--- NOTE | 2024-07-21 07:52 | MHC.OFFVIS ---
Intake Visit Reasons: follow [id number]-visit Allergies No Known Allergies [No Known Allergies*] Allergy (Verified 07/21/24 07:55) Medication List - Last Reconciled 07/21/24 by TIGRE Soto atorvastatin 10 mg PO BEDTIME 90 days HPI HPI follow [id number]-visit: Details: History of Present Illness The patient is a 63-year-old female presenting with musculoskeletal pain and microscopic hematuria. The patient reported the onset of pain in the right underarm extending to the right breast approximately 2 weeks after starting atorvastatin for dyslipidemia in May. The pain has persisted despite the application of topical creams advised by urgent care, where a mammogram and ultrasound returned negative results. The pain is not associated with swelling or pressure discomfort but presents as soreness without visible inflammation. There is also mention of muscle pain at the back of the left knee, which began during the same period. The patient's medication started around May and has been taken continuously. The patient also presented asymptomatic microscopic hematuria identified during a routine evaluation, without any visible blood in the urine, flank pain, or a history of smoking. Urine cytology was negative. She awaits a CT urogram and a possible cystoscopy, pt referred. Additionally, the patient has a thyroid nodule, for which she is scheduled to undergo a biopsy. A prior evaluation showed a mild increase in white blood cell count on follow-up, suspected to be benign leukopenia. Review of Systems - Genitourinary: Denies visible hematuria, kidney pain, flank pain. - Musculoskeletal: Reports muscle pain in the left knee. - Respiratory: Denies cough or shortness of breath. - Neurological: Denies headaches or dizziness. Physical Exam General: No apparent distress, well nourished Head: Normocephalic Eyes: non-icteric, pupils appear grossly symmetric Mouth: moist mucous membranes, airway patent Neck: Trachea midline Lungs: no respiratory distress, speaks in full sentences Neurologic: alert and cooperative, no dysarthria, face appears symmetric Psychiatric: affect normal, thought pattern linear Skin: no facial diaphoresis, no gross jaundice, no visible rash on exposed skin, reports soreness in the right underarm extending to the right breast, with no swelling, redness, or giant bumps observed Note: This physical exam was conducted in conjunction with the patient via our Telehealth platform. Plan - Discontinue atorvastatin and re-evaluate musculoskeletal symptoms in 2-3 weeks. - Obtain CT urogram to assess the causes of microscopic hematuria. - Refer to urology for possible cystoscopy if indicated. - Continue monitoring thyroid nodule; proceed with biopsy as scheduled. - Re-evaluate benign leukopenia and assess routine blood counts. Patient was informed and verbally consented to the use of an ambient scribe for clinic note documentation during this visit. Discussion Notes I discussed with the patient the potential side effects of atorvastatin, including muscular pain, and advised discontinuing the medication temporarily to ascertain any correlation with her symptoms. I reassured her that the muscle soreness could regress after discontinuation and encouraged her to report any changes. We also reviewed the significance of microscopic hematuria and the rationale for further investigation through a CT urogram to rule out pathologies like kidney stones, with a possible referral for cystoscopy. With respect to her thyroid nodule, we went over the biopsy procedure and its commonality, stressing the need for evaluation despite its discomforting prospects. We noted that the elevated white blood cell count may indicate benign leukopenia, common in many individuals, and planned to continue monitoring. Patient Instructions - Cease atorvastatin intake immediately and observe any reduction in musculoskeletal pain. - Keep track of any persisting or new symptoms and report through the patient portal. - Attend the scheduled CT urogram and follow up with results. - Continue to attend all scheduled medical appointments for monitoring. - Maintain a current list of symptoms, especially regarding any new or escalating conditions. [facility] Medical History (Updated 07/21/24 @ 07:56 by Jerel Echols, [facility]) Dense breast tissue on mammogram Family History Mother Breast cancer Maternal Aunt Lung cancer Breast cancer Social History Household Members: Spouse Housing: House Patient Tobacco Use Status: Never used Tobacco e-Cigarette/Vaping Use: Never Used service: No Current occupational status: employed Current occupational exposures/hazards: No Cognitive needs: No Hearing needs: No Vision needs: Yes Assessment & Plan Assessment & Plan (1) Breast pain, right: Code(s): N64.4 - Mastodynia Category: Medical (2) Microscopic hematuria: Code(s): R31.29 - Other microscopic hematuria Category: Medical (3) Leukopenia: Code(s): D72.819 - Decreased white blood cell count, unspecified Category: Medical (4) Axillary pain: Code(s): M79.629 - Pain in unspecified upper arm Category: Medical Plan . Coding Level of Care Code Tele Est Pt Level 3 (44562) Diagnoses Breast pain, right N64.4 Microscopic hematuria R31.29 Leukopenia D72.819 Axillary pain M79.629
== END 2024-07-21 08:59 | disposition home or self-care (01) ==
LOC: HO.HMCC 08:55
PROVIDERS: PCP Nurse Practitioner Family; Visit Provider Nurse Practitioner Family
DX: N64.4 Mastodynia (principal); R31.29 Other microscopic hematuria; D72.819 Decreased white blood cell count, unspecified; M79.621 Pain in right upper arm

== ENCOUNTER 2024-07-25 15:23 | Outpatient (REF) | payer BC, SELFPAY ==
[2024-07-25] MEDS: iohexoL 350 MG/ML 100 ML INFUS..BTL 85 ML IV (15:36)
== END 2024-07-25 15:24 | disposition home or self-care (01) ==
LOC: HO.CT 15:23
PROVIDERS: Visit Provider Nurse Practitioner Family
DX: R31.29 Other microscopic hematuria (principal)
CPT/HCPCS: 74178; Q9967

== ENCOUNTER → 2024-07-25 15:23 | Outpatient (BNV) | payer BC, SELFPAY | PROVIDERS: Visit Provider Radiology Diagnostic Radiology | DX: R31.29 Other microscopic hematuria (principal) | CPT/HCPCS: 74178 ==

== ENCOUNTER 2024-07-27 07:47 | Outpatient (REF) | payer BC, SELFPAY ==
--- NOTE | 2024-07-27 08:33 | PCN2_ITS ---
Brief Operative Note Date of procedure: 07/27/24 Pre-op diagnosis: right mid lower 2.7 cm thyroid nodule FNA biopsy Post-op diagnosis: same Procedure: THYROID FINE NEEDLE ASPIRATION PROCEDURE NOTE ? PROCEDURE PERFORMED: Ultrasound-guided FNA of thyroid nodule ? OPERATORS: Dr. Nay Fishman ? INDICATION: right mid lower 2.7 cm thyroid nodule; FNA performed to assess for malignancy ? DESCRIPTION OF PROCEDURE: The indications for FNA (to assess for malignancy) were reviewed with the patient in detail. Potential complications (e.g., bleeding, infection, damage to local structures, absence of clear diagnosis after FNA) were reviewed. Alternatives to FNA including conservative observation or surgery were described. The patient understood and agreed to proceed. This was documented by the signing of the written informed consent form. A time-out was performed to confirm the patient's identity and the site of planned FNA. The nodule of interest was identified using ultrasound (14 MHz linear array probe). The site of FNA was then draped in the usual fashion and c arefully cleaned and prepared using alcohol swabs. The skin at the previously-identified site of needle insertion was iced and sprayed with numbing spray. Under ultrasound guidance, 4__ passes were performed using a 1.5-inch, 25-gauge needle, and sample was obtained via capillary action. The needle tip was clearly visualized to be within the nodule at the time of sampling for 4__ of _4_ passes The patient tolerated the procedure well. There were no immediate complications. A small adhesive bandage was applied, and the patient was advised to take acetaminophen (rather than NSAIDs) for any discomfort and to report any signs of inflammation/infection or marked swelling. IMPRESSION: Technically successful ultrasound-guided fine needle aspiration of right mid lower 2.7 cm thyroid nodule FNA biopsy. PLAN: The patient was advised that I will provide follow-up regarding the cytology result and any subsequent plans. Nay Fishman MD Endocrinology Attending Condition: stable Disposition: same day
== END 2024-07-27 07:48 | disposition home or self-care (01) ==
LOC: HO.US 07:47
PROVIDERS: PCP Nurse Practitioner Family; Visit Provider Student in an Organized Health Care Education/Training Program
DX: E04.1 Nontoxic single thyroid nodule (principal)
CPT/HCPCS: 10005; 88173

== ENCOUNTER → 2024-07-27 07:47 | Outpatient (BNV) | payer BC, SELFPAY | PROVIDERS: PCP Nurse Practitioner Family; Visit Provider Student in an Organized Health Care Education/Training Program | DX: E04.1 Nontoxic single thyroid nodule (principal) | CPT/HCPCS: 10005 ==

== ENCOUNTER 2024-08-03 07:49 | Outpatient (REF) | payer BC, SELFPAY ==
[2024-08-03 16:33] LABS: Urine Cytology See Pathology rpt
== END 2024-08-03 07:50 | disposition home or self-care (01) ==
LOC: HO.LAB 07:49
PROVIDERS: PCP Nurse Practitioner Family; Visit Provider Nurse Practitioner Family
DX: R31.29 Other microscopic hematuria (principal)
CPT/HCPCS: 81003; 88112

== ENCOUNTER 2024-08-03 07:49 | Outpatient (AMB) | payer BC, SELFPAY ==
--- NOTE | 2024-08-03 08:00 | A.OFFVIS_ITS ---
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 Zavaleta. She presents to the office today as a new patient for microscopic hematuria. In discussion with the patient today she reports having had establish care with a new PCP here at [facility] at which time urinalysis noted microscopic hematuria and recommendations were made for urology referral for further assessment evaluation. She reports having had CT performe d. In review of patient's chart it appears CT remains pending. Urine cytology results reviewed with the patient today. 07/24 Negative for high-grade urothelial carcinoma. When asked she denies any known history of workplace chemical exposure and or any previous smoking history. She otherwise denies any bothersome urinary issues. She denies urinary urgency, urinary frequency, incontinence, nocturia, hematuria, dysuria, foul smelling urine, changes to urinary stream, flank pain, fever, and or chills. She is happy with her current voiding parameters. In office urinalysis results reviewed with the patient today 1+ microscopic hematuria otherwise within normal limits. Reviewed other UAs that have been obtained that did not note microscopic hematuria. We discussed persistent microscopic hematuria verses inconsistent microscopic hematuria verses gross/visible hematuria. I discussed reasons for blood in the urine may include but are not limited to kidney stones, cancer in the urinary tract, kidney stone disease or inflammatory conditions of the urinary tract. We discussed surveillance monitoring verses further workup with in office cystoscopy. Risks and benefits of these interventions were discussed. She otherwise offers no other issues or concerns at this time. [facility] Medical History Dense breast tissue on mammogram Family History Mother Breast cancer Maternal Aunt Lung cancer Breast cancer Social History Household Members: Spouse Housing: House Patient Tobacco Use Status: Never used Tobacco e-Cigarette/Vaping Use: Never Used service: No Current occupational status: employed Current occupational exposures/hazards: No Cognitive needs: No Hearing needs: No Vision needs: Yes Review of Systems Const All systems reviewed & are unremarkable except as noted in HPI and below Physical Exam Const General: cooperative, healthy appearing, comfortable, no acute distress, well developed, alert and awake Nutritional Appearance: thin Orientation/consciousness: patient oriented x3 HEENT Head: Yes normal to inspection, Yes normocephalic and Yes atraumatic Ears: hearing grossly normal bilaterally Eyes General: appearance normal, both eyes and all related structures Neck Neck: Yes normal visual inspection and Yes trachea midline Chest Chest palpation & inspection: normal inspection of the chest Resp Effort & Inspection: normal respiratory effort and able to speak in complete sentences Cardio Rate: regular rate GI Inspection: Yes normal to inspection General: Yes no CVA tenderness Back/Spine/Pelvis Back: no CVA tenderness Skin General skin exam: no rashes or lesions noted Neuro General: patient oriented x3 Extrem General: Yes normal to inspection Psych Appearance: grossly normal and well kempt Mental Status: mental status grossly normal Speech and movement: Normal speech and movement present and Clear speech present Affect: normal affect Attitude: cooperative Thought process: Normal thought process present Thought content: Normal thought content present Insight: Fair insight present (Psych) Judgement: Fair judgement present (Psych) Results AMB Urinalysis, Automated UA Leukoctes 0 Job/uL Last Edit by Funmi Lauren on 08/03/24 08:24 UA Nitrite Last Edit by Funmi Lauren on 08/03/24 08:24 UA Urobilinogen 0.2 mg/dL Last Edit by Funmi Lauren on 08/03/24 08:24 UA Protein 0 mg/dL Last Edit by Funmi Lauren on 08/03/24 08:24 UA pH 6.0 Last Edit by Funmi Lauren on 08/03/24 08:24 UA Blood 25 Freddy/uL Last Edit by Funmi Berthananci on 08/03/24 08:24 UA Specific Letts 1.025 Last Edit by Chadjayden Berthananci on 08/03/24 08:24 UA Ketone Last Edit by Funmi Berthananci on 08/03/24 08:24 UA Bilirubin 0 mg/dL Last Edit by Chadjayden Berthananci on 08/03/24 08:24 UA Glucose 0 mg/dL Last Edit by Funmi Berthananci on 08/03/24 08:24 Results Reviewed Results Reviewed: Laboratory Last Values Urine pH (Auto) 6.0 08/03/24 08:23 Specific Letts (Auto) 1.025 08/03/24 08:23 Urine Protein (Auto) 0 mg/dL 08/03/24 08:23 Glucose (UA)(Auto) 0 mg/dL 08/03/24 08:23 Urine Blood (Auto) 25 Freddy/uL 08/03/24 08:23 Urine Bilirubin (Auto) 0 mg/dL 08/03/24 08:23 Urine Urobilinogen (Auto) 0.2 mg/dL 08/03/24 08:23 Leukocyte Esterase (Auto) 0 Job/uL 08/03/24 08:23 Assessment & Plan Assessment & Plan (1) Microscopic hematuria: Code(s): R31.29 - Other microscopic hematuria Category: Medical Plan In office urinalysis results reviewed with the patient today; as noted above; will send for urine cytology. CT remains pending. We discussed at length potential causes of microscopic hematuria as well as persistent microscopic hematuria versus gross hematuria verses inconsistent microscopic hematuria. We discussed further workup to include in office cystoscopy versus surveillance monitoring; risks and benefits of these interventions were discussed. She currently denies any bothersome urinary issues or concerns. She reports be happy with current voiding parameters. Follow-up in office cystoscopy; or sooner with any issues, concerns, and or questions. Orders: Orders AMB Urinalysis Automated Today Z13.9 - Encounter for screening, unspecified Urine Cytology Today R31.29 - Other microscopic hematuria Patient Instructions: The patient had an opportunity to ask questions regarding the treatment plan. All questions were answered. Physical exam, labs, and imaging were discussed and reviewed in detail. As well as risks, benefits, and discussion of treatment choices. No major barriers to understanding were identified. The patient expressed understanding and agreement with the above treatment plan. The patient was made aware they should contact our office by phone for worsening of their current condition, the appearance of new symptoms, or with any questions or concerns. Compliance is encouraged with any medications and follow up testing that is ordered. It is a privilege to be allowed the opportunity to participate in? your urological care.? Again, if you have any questions or concerns If you have any questions or concerns please do not hesitate to contact me. The office is [phone]. This note is constructed using voice recognition software. While every effort has been made to ensure accuracy bmet errors may have been included. Yours sincerely, TIGRE Kaye Coding Level of Care Code New Pt Level 3 (86800) Diagnoses Microscopic hematuria R31.29
== END 2024-08-03 08:39 | disposition home or self-care (01) ==
PROVIDERS: PCP Nurse Practitioner Family; Visit Provider Nurse Practitioner Family
DX: R31.29 Other microscopic hematuria (principal); Z13.9 Encounter for screening, unspecified
CPT/HCPCS: 99203

== ENCOUNTER 2024-08-05 08:13 | Outpatient (AMB) | payer BC, SELFPAY ==
--- NOTE | 2024-08-05 08:44 | MHC.OFFWIV ---
Intake Vital Signs 08/05/24 08:49 Height 5 ft 9 in Weight 120 lb BMI 17.7 BP 110/72 Blood Pressure Location Lt brachial Position Sitting Pulse 58 Pulse Source Pulse Oximeter Pulse Oximetry (%) 98 Oxygen Delivery Method Room Air Intake Visit Reasons: EP-hemorroids Intake Note: Patient here for possible hemorrhoids that have been present for a few days. Patient Tobacco Use Status: Never used Tobacco Allergies No Known Allergies [No Known Allergies*] Allergy (Verified 08/05/24 08:50) Do you need a note to return to daycare/school/sports/work: No HPI HPI Comments History of Present Illness Details This is a 63-year-old female who presented to the walk-in clinic with concerns for hemorrhoid. Patient states she has noticed a ?protrusion? from her rectum for the past several months. She denies any rectal pain. She denies any melena/hematochezia. She denies any diarrhea/constipation. She denies any abdominal pain or nausea/vomiting. [facility] Medical History Dense breast tissue on mammogram Family History Mother Breast cancer Maternal Aunt Lung cancer Breast cancer Social History Household Members: Spouse Housing: House Patient Tobacco Use Status: Never used Tobacco e-Cigarette/Vaping Use: Never Used service: No Current occupational status: employed Current occupational exposures/hazards: No Cognitive needs: No Hearing needs: No Vision needs: Yes Review of Systems Const All systems reviewed & are unremarkable except as noted in HPI and below Reports no additional complaints Eyes Reports no additional complaints ENT Reports no additional complaints Card Reports no additional complaints Resp Reports no additional complaints GI Reports no additional complaints Reports no additional complaints Musc Reports no additional complaints Skin/Breast Reports system reviewed and no additional complaints, except as documented Neuro Reports no additional complaints Psych Reports no additional complaints Endo Reports no additional complaints Rufino/Lymph Reports no additional complaints Aller/Immun Reports no additional complaints Physical Exam Vital Signs: Last Vital Signs Pulse 58 08/05/24 08:49 BP 110/72 08/05/24 08:49 Pulse Ox 98 08/05/24 08:49 Oxygen Delivery Method Room Air 12/06/24 08:49 BMI result Body Mass Index 17.7 Const Other: Vital signs reviewed. Constitutional: Non-toxic appearing. No acute distress. Well-developed and well-nourished. Skin: Warm and dry. No rashes or lesions noted. Neck: Full and painless range of motion. No cervical lymphadenopathy. Gastrointestinal: There is what appears to be an external hemorrhoid of the rectum towards the right buttock. Musculoskeletal: Normal range of motion in joints throughout the body. No deformity or other signs of injury. Neuro: Alert and oriented x4. Cranial nerves 2-12 grossly intact. No focal deficits appreciated. Psych: Normal mood and affect. Assessment & Plan Assessment & Plan (1) Hemorrhoid: Code(s): K64.9 - Unspecified hemorrhoids Qualifiers: Hemorrhoid type: unspecified Qualified Code(s): K64.9 - Unspecified hemorrhoids Plan: This is a 63-year-old female who presented to the walk-in clinic with concerns for a hemorrhoid. On physical examination, there is what appears to be an external hemorrhoid located towards the right buttock. Patient has no melena or hematochezia, rectal pain, or rectal drainage/leakage. I recommended symptomatic management including topical hydrocortisone as needed, increased fiber/fluid intake, and sitz baths as needed. Patient was instructed to follow-up here or proceed to the emergency room if she were to develop significant bright red blood per rectum or rectal pain. Patient verbalized understanding and is agreeable with the plan. Medications: New hydrocortisone 2.5% (Anusol-HC) 1 appl VA BID-QID PRN 30 grams 0RF hemorrhoids Coding Level of Care Code Est Pt Level 3 (66725) Diagnoses Hemorrhoids, unspecified hemorrhoid type K64.9 Hemorrhoid type: unspecified
[2024-08-05 08:49] VITALS: BP 110/72; PULSE 58; O2SAT 98; BMI 17.7
== END 2024-08-05 09:26 | disposition home or self-care (01) ==
PROVIDERS: PCP Nurse Practitioner Family; Visit Provider Physician Assistant Medical
DX: K64.9 Unspecified hemorrhoids (principal)

== ENCOUNTER → 2024-08-05 08:13 | Outpatient (BNVA) | payer BC, SELFPAY | PROVIDERS: PCP Nurse Practitioner Family ==

== ENCOUNTER 2024-08-10 13:17 | Outpatient (AMB) | payer BC, SELFPAY ==
[2024-08-10 13:19] VITALS: BP 106/70; PULSE 49; BMI 18.2
--- NOTE | 2024-08-10 13:19 | MHC.OFFVIS ---
Vital Signs 08/10/24 13:19 Height 5 ft 9 in Weight 123 lb 3.814 oz BMI 18.2 BP 106/70 Blood Pressure Location Lt brachial Position Sitting Pulse 49 L Pulse Source Pulse Oximeter Intake Visit Reasons: Biopsy f/u Intake Note: Patient present today for biopsy results. Die Sizer Required: No Accompanied by: Self / Same As Patient Allergies No Known Allergies [No Known Allergies*] Allergy (Verified 08/10/24 13:36) HPI Comments Details: 63-year-old female here today for follow up of solitary right-sided thyroid nodule. HPI from prior visit Palpated on physical exam. No prior history. Ultrasound May 2024, I reviewed the images myself which showed a solitary right mid/lower lobe thyroid nodule measuring 2.7 cm in the largest dimension, solid, isoechoic, with macrocalcifications, TR 4 category. Meets criteria for FNA. Interval history 07/27/2024: Underwent biopsy of the right mid/lower 2.7 cm nodule which came back with benign cytology ([place] category 2). Patient currently denies heat or cold intolerance, diarrhea or constipation, hair loss, palpitation, anxiety, mood changes, low energy, changes in appearance of eyes or vision changes, tremors, increased diaphoresis or dry skin. ? Lost 10 lbs in the last couple of years. Patient denies any difficulty swallowing, pain on swallowing or voice changes or difficulty breathing. Patient denies any history of childhood neck radiation. Denies having ever used lithium, amiodarone or biotin supplements. Patient denies any family history of thyroid cancer or thyroid disease. Review of systems Constitutional: no fevers, chills or weight loss HEENT: no changes in vision Cardiac: No chest pain, discomfort or palpitations. Pulmonary: No SOB GI:No abdominal pain, no nausea or vomiting, no anorexia, no blood in stool : no burning micturition, dysuria or increase in urinary frequency Neurologic: No dizziness, no weakness in extremities MSK: no back pain or joint stiffness Physical exam General: sitting comfortably in no acute distress HEENT: normocephalic/atraumatic, EOM intact, moist oral mucosa Neck: supple, palpable 2 cm right thyroid nodule , no dorsocervical or supraclavicular fat pads Cardiac: normal heart sounds Pulm: normal breath sounds B/L, no added breath sounds Abd: not distended, no tenderness Extremities: no edema, no signs of myxedema Neuro: AAO x3, Speech: normal, no facial droop, moving all 4 extremities Laboratory Tests 09/11/22 06/01/24 07:24 06:39 TSH 1.30 1.17 Free T4 1.05 US THYROID 06/02 CLINICAL INFORMATION: Nontoxic single thyroid nodule. COMPARISON: None available. TECHNIQUE: Linear transducer grayscale and color Doppler examination with attention to the region of the thyroid. FINDINGS: SIZE: Measurements of the thyroid lobes and nodules are given in sagittal, anteroposterior and transverse dimensions respectively. Right Thyroid Lobe: 5.2 x 1.9 x 1.9 cm, volume 10.0 mL. Parenchyma: The gland echotexture is homogeneous. Thyroid vascularity is normal. Left Thyroid Lobe: 4.4 x 1.2 x 1.2 cm, volume 3.3 mL. Parenchyma: The gland echotexture is homogeneous. Thyroid vascularity is normal. Isthmus: 0.09 cm in maximum AP dimension. Estimated total number of nodules greater than or equal to 1 cm: 1. [employer] nodules are described as follows: 1. Location: Right mid/lower pole. Size: 2.7 x 1.3 x 1.9 cm, volume 3.3 mL. Nodule characteristics: Composition: Solid/almost completely solid (2). Echogenicity: Isoechoic (1). Shape: Not taller than wide (0). Margins: Smooth (0). Echogenic Foci: Punctate echogenic foci (3). ACR TI-RADS total points: 6 ACR TI-RADS category: 4 NODES: No lymphadenopathy is seen in the tissue surrounding the thyroid gland. US/US thyroid IMPRESSION: A dominant nodule in the right middle Pole 2.7 cm TR 4 nodule . Given its size and ACR TI-RADS category, this nodule meets the ACR criteria recommendation for FNA. FNA recommended. Findings being called to the referring provider's office. [facility] Medical History Dense breast tissue on mammogram Family History Mother Breast cancer Maternal Aunt Lung cancer Breast cancer Social History Household Members: Spouse Housing: House Patient Tobacco Use Status: Never used Tobacco e-Cigarette/Vaping Use: Never Used service: No Current occupational status: employed Current occupational exposures/hazards: No Cognitive needs: No Hearing needs: No Vision needs: Yes Assessment & Plan Assessment & Plan (1) Thyroid nodule: Code(s): E04.1 - Nontoxic single thyroid nodule Category: Medical Plan: 63-year-old female with no significant family history of thyroid cancer, no personal history of head or neck radiation here today to establish care for right solitary thyroid nodule. Ultrasound May 2024, I reviewed the images myself which showed a solitary right mid/lower lobe thyroid nodule measuring 2.7 cm in the largest dimension, solid, isoechoic, with macrocalcifications, TR 4 category. Meets criteria for FNA. Labs from May 2024 shows she is biochemically euthyroid. 07/27/2024: Underwent biopsy of the right mid/lower 2.7 cm nodule which came back with benign cytology ([place] category 2). I discussed with the patient that benign biopsy results mean less than 3% chance of malignancy the nodule. We will plan to follow up this nodule with a repeat ultrasound in 1 year. Plan: -ultrasound thyroid ordered to be scheduled for 1 year from now sometime around JulyJuly 2025 -free T4, TSH to be done prior to follow up in 1 year Plan see above Orders: Orders Free T4 (Free Thyroxine) 1 Year E04.1 - Nontoxic single thyroid nodule US thyroid 1 Year E04.1 - Nontoxic single thyroid nodule Thyroid Stimulating Hormone 1 Year E04.1 - Nontoxic single thyroid nodule Coding Level of Care Code Est Pt Level 3 (70468) Diagnoses Thyroid nodule E04.1
== END 2024-08-10 13:44 | disposition home or self-care (01) ==
PROVIDERS: PCP Nurse Practitioner Family; Visit Provider Student in an Organized Health Care Education/Training Program
DX: E04.1 Nontoxic single thyroid nodule (principal)
CPT/HCPCS: 99213

== ENCOUNTER → 2024-08-10 13:17 | Outpatient (BNVA) | payer BC, SELFPAY | PROVIDERS: PCP Nurse Practitioner Family; Visit Provider Student in an Organized Health Care Education/Training Program ==

== ENCOUNTER 2024-08-17 15:10 | Outpatient (REF) | payer BC, SELFPAY ==
--- NOTE | ~2024-08-17 | XR_ITS ---
EXAMINATION: XR CERVICAL SPINE ; XR THORACIC SPINE CLINICAL INFORMATION: Pain in unspecified upper arm M79.629. COMPARISON: None TECHNIQUE: 2 images of cervical spine and 2 images of thoracic spine. FINDINGS: There is normal thoracic kyphosis. The vertebral heights, alignment and disc heights are preserved. No visible acute fracture, dislocation or subluxation seen. There is minimal dextroscoliosis of the mid dorsal level. The paravertebral soft tissues are normal. XR/XR cervical spine 2V IMPRESSION: Minimal dextroscoliosis mid dorsal spine. No visible acute fracture, dislocation or lytic process seen. Electronically signed by: Sreedhar Jackson MD 08/25/2024 01:13 PM EST
--- NOTE | ~2024-08-17 | XR_ITS ---
EXAMINATION: XR CERVICAL SPINE ; XR THORACIC SPINE CLINICAL INFORMATION: Pain in unspecified upper arm M79.629. COMPARISON: None TECHNIQUE: 2 images of cervical spine and 2 images of thoracic spine. FINDINGS: There is normal thoracic kyphosis. The vertebral heights, alignment and disc heights are preserved. No visible acute fracture, dislocation or subluxation seen. There is minimal dextroscoliosis of the mid dorsal level. The paravertebral soft tissues are normal. XR/XR thoracic spine 2V IMPRESSION: Minimal dextroscoliosis mid dorsal spine. No visible acute fracture, dislocation or lytic process seen. Electronically signed by: Sreedhar Jackson MD 08/25/2024 01:13 PM EST
== END 2024-08-17 15:11 | disposition home or self-care (01) ==
LOC: HO.HMGCX 15:10
PROVIDERS: PCP Nurse Practitioner Family; Visit Provider Nurse Practitioner Family
DX: M79.629 Pain in unspecified upper arm (principal); M50.90 Cervical disc disorder, unspecified, unspecified cervical region; M54.6 Pain in thoracic spine
CPT/HCPCS: 72040; 72070

== ENCOUNTER → 2024-08-17 15:10 | Outpatient (BNV) | payer BC, SELFPAY | PROVIDERS: PCP Nurse Practitioner Family; Visit Provider Radiology Diagnostic Radiology | DX: M50.90 Cervical disc disorder, unspecified, unspecified cervical region (principal); M54.6 Pain in thoracic spine | CPT/HCPCS: 72040; 72070 ==

== ENCOUNTER 2024-09-26 10:21 | Outpatient (AMB) | payer BC, SELFPAY ==
--- NOTE | 2024-09-25 23:08 | A.OFFVIS_ITS ---
Intake Visit Reasons: Cysto in office Intake Note: Patient is Present for Cystoscopy Urology Med: None Antibiotic Allergy: None Blood Thinner: None URO- G Disposable Cystoscope lot: [id number] exp: 01/06/2027 Press Tool Maker Required: No Accompanied by: Self / Same As Patient Allergies No Known Allergies [No Known Allergies*] Allergy (Verified 09/26/24 11:19) HPI Comments Details: 09/26/24--Here for cystoscopy. Cystoscopy findings: Bladder mucosa within normal limits. No suspicious bladder lesions. Pelvic exam-vaginal atrophy, without vaginal prolapse. Discussed CT imaging results. CT Urogram--07/25/24--No radiopaque urolith, enhancing renal mass or hydronephrosis seen. There is a nonenhancing cyst right kidney. Unremarkable urinary bladder. 08/03/24--Beverly Herrera is a very pleasant 63-year-old female patient of Dr. Zavaleta. She presents to the office today as a new patient for microscopic hematuria. In discussion with the patient today she reports having had establish care with a new PCP here at [facility] at which time urinalysis noted microscopic hematuria and recommendations were made for urology referral for further assessment evaluation. She reports having had CT performed. In review of patient's chart it appears CT remains pending. Urine cytology results reviewed with the patient today. 07/24 Negative for high-grade urothelial carcinoma. When asked she denies any known history of workplace chemical exposure and or any previous smoking history. She otherwise denies any bothersome urinary issues. She denies urinary urgency, urinary frequency, incontinence, nocturia, hematuria, dysuria, foul smelling urine, changes to urinary stream, flank pain, fever, and or chills. She is happy with her current voiding parameters. In office urinalysis results reviewed with the patient today 1+ microscopic hematuria otherwise within normal limits. Reviewed other UAs that have been obtained that did not note microscopic hematuria. We discussed persistent microscopic hematuria verses inconsistent microscopic hematuria verses gross/visible hematuria. I discussed reasons for blood in the urine may include but are not limited to kidney stones, cancer in the urinary tract, kidney stone disease or inflammatory conditions of the urinary tract. We discussed surveillance monitoring verses further workup with in office cystoscopy. Risks and benefits of these interventions were discussed. She otherwise offers no other issues or concerns at this time. [facility] Medical History Dense breast tissue on mammogram Family History Mother Breast cancer Maternal Aunt Lung cancer Breast cancer Social History Household Members: Spouse Housing: House Patient Tobacco Use Status: Never used Tobacco e-Cigarette/Vaping Use: Never Used service: No Current occupational status: employed Current occupational exposures/hazards: No Cognitive needs: No Hearing needs: No Vision needs: Yes Review of Systems Const All systems reviewed & are unremarkable except as noted in HPI and below Reports no additional complaints Eyes Reports no additional complaints ENT Reports no additional complaints Card Reports no additional complaints Resp Reports no additional complaints GI Reports no additional complaints Reports as per HPI Musc Reports no additional complaints Skin/Breast Reports system reviewed and no additional complaints, except as documented Neuro Reports no additional complaints Psych Reports no additional complaints Endo Reports no additional complaints Rufino/Lymph Reports no additional complaints Aller/Immun Reports no additional complaints Office Procedures Cystoscopy Consent Discussed risk and benefit or proposed procedure with the patient. Information consent for procedure given to the patient. Discussed technical aspects, risks, benefits and alternatives in full. Addressed all of the patient's questions and concerns regarding the procedure. The patient demonstrated knowledge and understanding. They wish to proceed with this procedure. Preparation The patient was prepped in the usual manner. A pool table operator was present and in the room. Genitalia was prepped with betadine solution in a sterile manner. Lidocaine Jelly 2% was placed into the urethra and 16Fr flexible Olympus cystoscope was inserted into the meatus after adequate lubrication. Procedure Time out per protocol performed. Bladder Inspection Bladder Inspection: The bladder was inspected in its entirety with utilization retroflexion displaying: Tumor(s): no suspicious bladder lesions visualized Trabeculation: Freddy Mucosal Erthema: NA Orifices: normal shape and position Urethra: normal Cystoscopy findings: WNL, no suspicious bladder lesions visualized [id number] DISPOSABLE SCOPE URO-G FLEXIBLE SCOPE Procedure code (CPT) selection complete Office Meds lidocaine HCl 2 % mucosal jelly in applicator Performing Provider: Jaylyn Davila MD Performing Location: [facility] Administered by: Sabine Stanford RN on 09/26/24 11:24 Dose Route Admin Location Dispensed Lot Number Expiration Date NDC Hide Stretcher Hand 10 mL intra-urethral 10 mL ciprofloxacin HCl 500 mg tablet Performing Provider: Jaylyn Davila MD [facility] Administered by: Sabine Stanford RN on 09/26/24 11:24 Dose Route Admin Location Dispensed Lot Number Expiration Date NDC Hide Stretcher Hand 500 mg PO 1 tab Results AMB Urinalysis, Automated UA Leukoctes 0 Job/uL Last Edit by Nini Demarco [facility] on 09/26/24 11:20 UA Nitrite Negative Last Edit by Nini Demarco [facility] on 09/26/24 11:20 UA Urobilinogen 0.2 mg/dL Last Edit by Nini Demarco A on 09/26/24 11:2 0 UA Protein 0 mg/dL Last Edit by Nini Demarco [facility] on 09/26/24 11:20 UA pH 5.5 Last Edit by Nini Demarco A on 09/26/24 11:20 UA Blood 10 Freddy/uL Last Edit by Nini Demarco [facility] on 09/26/24 11:20 UA Specific Rochelle 1.010 Last Edit by Nini Demarco [facility] on 09/26/24 11: 20 UA Ketone Negative Last Edit by Nini Demarco A on 09/26/24 11:20 UA Bilirubin 0 mg/dL Last Edit by Nini Demarco [facility] on 09/26/24 11:20 UA Glucose 0 mg/dL Last Edit by Nini Demarco [facility] on 09/26/24 11:20 Results Reviewed Results Reviewed: Laboratory Last Values Urine pH (Auto) 5.5 09/26/24 11:10 Specific Rochelle (Auto) 1.010 09/26/24 11:10 Urine Protein (Auto) 0 mg/dL 09/26/24 11:10 Glucose (UA)(Auto) 0 mg/dL 09/26/24 11:10 Urine Ketones (Auto) Negative 09/26/24 11:10 Urine Blood (Auto) 10 Freddy/uL 09/26/24 11:10 Urine Nitrite (Auto) Negative 09/26/24 11:10 Urine Bilirubin (Auto) 0 mg/dL 09/26/24 11:10 Urine Urobilinogen (Auto) 0.2 mg/dL 09/26/24 11:10 Leukocyte Esterase (Auto) 0 Job/uL 09/26/24 11:10 Date of Service: 07/25/24 CT ABDOMEN AND PELVIS WITHOUT AND WITH CONTRAST CLINICAL INFORMATION: Microscopic hematuria COMPARISON: None available. TECHNIQUE: Noncontrast CT of the abdomen and pelvis is performed followed by split bolus contrast-enhanced images using 85 mL Omnipaque 350 contrast. Postcontrast imaging is performed during the combined nephrogram and excretion phase. Sagittal and coronal reformatted images were obtained on the technologist's workstation for both the precontrast and postcontrast phases. This CT examination was performed using dose optimization techniques as appropriate, variously including the following: *Automated exposure control *Adjustment of mA and/or kV according to patient size (this includes techniques or standardized protocols for targeted exams where dose is matched to indication/reason for exam; i.e. extremities or head) *Use of iterative reconstruction technique DLP: 357 mGy-cm FINDINGS: LUNG BASES: Mild platelike atelectatic changes are seen in both lung bases. LIVER, GALLBLADDER, AND BILIARY TREE: The liver is normal in size, shape, and attenuation. No focal hepatic lesion or biliary ductal dilatation is present. The gallbladder is unremarkable with no evidence of radiopaque gallstones, gallbladder wall thickening, or obvious pericholecystic inflammatory changes. PANCREAS: Unremarkable. SPLEEN: Unremarkable. ADRENAL GLANDS: Unremarkable. KIDNEYS AND URETERS: The kidneys are normal in size, shape, and attenuation. No hydronephrosis, hydroureter, or calculi seen. Postcontrast there is a 3.2 x 2.3 cm nonenhancing cyst upper mid pole right kidney. No enhancing mass visualized. Normal cortical thickness is noted. There is no perinephric stranding. BLADDER: Unremarkable. GASTROINTESTINAL TRACT: There is scattered stool and diverticuli seen throughout the colon without any distention. The small bowel loops are normal caliber. Appendix is not visualized. The stomach is nondistended ABDOMINAL WALL: No significant hernia is appreciated. LYMPH NODES: Normal. VASCULAR: Unremarkable. PELVIC VISCERA: There is no free fluid or free air seen. Small phleboliths are seen in the pelvis. OSSEUS STRUCTURES: Unremarkable. IMPRESSION: No radiopaque urolith, enhancing renal mass or hydronephrosis seen. There is a nonenhancing cyst right kidney. Unremarkable urinary bladder. Assessment & Plan Assessment & Plan (1) Microscopic hematuria: Code(s): R31.29 - Other microscopic hematuria Category: Medical (2) Postmenopausal atrophy of urethra: Code(s): N95.8 - Other specified menopausal and perimenopausal disorders; N36.8 - Other specified disorders of urethra Category: Medical Plan Follow-up with nurse practitioner in 6 months Orders: Orders AMB Cystoscopy Today R31.29 - Other microscopic hematuria AMB Urinalysis Automated Today Z13.9 - Encounter for screening, unspecified Patient Instructions: The patient had an opportunity to ask questions regarding treatment plan. The patient expressed understanding and agreement with the above treatment plan. The patient is aware they should contact our office by phone for worsening of their current condition or the appearance of new symptoms. Compliance is encouraged with any medications and followup testing that is ordered. It is a privilege to be allowed the opportunity to participate in the urologic care of your patient. If you have any questions or concerns regarding treatment for the above conditions please do not hesitate to contact me. The office telephone contact is [phone]. This note is constructed in part using voice recognition software. While every effort has been made to ensure accuracy wallpaper scraper errors may have been included. Yours sincerely, Jaylyn Davila MD Coding Level of Care Code Procedure Only Diagnoses Microscopic hematuria R31.29 Postmenopausal atrophy of urethra N95.8; N36.8 CPT Codes Cystoscopy - CPT: [id number] ([id number])
== END 2024-09-26 11:55 | disposition home or self-care (01) ==
PROVIDERS: PCP Nurse Practitioner Family; Visit Provider Urology
DX: R31.29 Other microscopic hematuria (principal); N95.8 Other specified menopausal and perimenopausal disorders; N36.8 Other specified disorders of urethra; Z13.9 Encounter for screening, unspecified
CPT/HCPCS: 52000

== ENCOUNTER → 2024-09-26 10:21 | Outpatient (BNVA) | payer BC, SELFPAY | PROVIDERS: PCP Nurse Practitioner Family; Visit Provider Urology | DX: R31.29 Other microscopic hematuria (principal); N95.8 Other specified menopausal and perimenopausal disorders; N36.8 Other specified disorders of urethra | CPT/HCPCS: 52000; 81003 ==

== ENCOUNTER 2024-10-11 12:53 | Outpatient (AMB) | payer BC, SELFPAY ==
--- NOTE | 2024-10-11 13:00 | MHC.OFFVIS ---
Vital Signs 10/11/24 13:01 Height 5 ft 9 in Weight 124 lb 12.506 oz BMI 18.4 BP 124/58 L Blood Pressure Location Rt brachial Position Sitting Pulse 52 Pulse Source Pulse Oximeter Pulse Oximetry (%) 100 Oxygen Delivery Method Room Air Intake Visit Reasons: Colonoscopy Screening Intake Note: NEW PATIENT for colo screening, recall. 2nd lifetime. 2013 w/ Galo. Chief Complaint; Pt denies any GI concerns at this time. Prev hx of hemorrhoids. Not currently active. Search Engine Optimization Consultant Required: No Accompanied by: Self / Same As Patient Allergies No Known Allergies [No Known Allergies*] Allergy (Verified 10/11/24 13:00) HPI HPI Colonoscopy Screening: Details: 63 Year old? female with past medical history of thoracic pain, dyslipidemia, thyroid nodule, palpitations is here today for pre colonoscopy screening.? Patient was sent to us by her PCP.? Last colonoscopy in [address] Rosenthal was normal.? Patient denies any gastrointestinal symptoms in the past or at present.? Denies any personal or family history of gastrointestinal disease, colon polyps, or CRC.? Denies history of difficulty with sedation or anesthesia in the past.? Negative for history of sleep apnea.? Denies any history of cardiac, renal, pulmonary, or hepatic disease.?? No history of infectious? diseases like hepatitis A, B, C, HIV or tuberculosis.? Patient is not on any anticoagulation. Patient however reports that she occasionally will have palpitation and currently is being worked up by PCP and has appointment to see Cardiology. PFSH Medical History Dense breast tissue on mammogram Surgical History Hx of colonoscopy (~2013) Family History Mother Breast cancer Maternal Aunt Lung cancer Breast cancer Social History Household Members: Spouse Housing: House Patient Tobacco Use Status: Never used Tobacco e-Cigarette/Vaping Use: Never Used service: No Current occupational status: employed Current occupational exposures/hazards: No Cognitive needs: No Hearing needs: No Vision needs: Yes Review of Systems Const Denies weight gain and Denies weight loss ENT Reports no additional complaints, Denies dysphagia and Denies odynophagia Card Reports no additional complaints Resp Reports no additional complaints GI Denies abdominal pain, Denies belching, Denies melena, Denies bloating, Denies change in bowel habits, Denies dysphagia, Denies excessive flatus, Denies dyspepsia, Denies heartburn, Denies diarrhea, Denies loose stools, Denies nausea, Denies odynophagia and Denies vomiting Musc Reports no additional complaints Neuro Reports no additional complaints Psych Reports no additional complaints Endo Reports no additional complaints Physical Exam Vital Signs: Last Vital Signs Pulse 52 10/11/24 13:01 BP 124/58 L 10/11/24 13:01 Pulse Ox 100 10/11/24 13:01 Oxygen Delivery Method Room Air 10/11/24 13:01 BMI result Body Mass Index 18.4 Const General: healthy appearing, no acute distress and well developed Nutritional Appearance: well nourished Orientation/consciousness: patient oriented x3 Resp Effort & Inspection: normal respiratory effort, able to speak in complete sentences, no tracheal deviation and symmetric chest movement Auscultation: clear to auscultation bilaterally Cardio Rate: regular rate GI Inspection: Yes normal to inspection and No distended Palpation (GI): Soft to palpation, not firm, nontender and No hepatosplenomegaly present Auscultation: normal bowel sounds General: Yes no CVA tenderness Back/Spine/Pelvis Back: no CVA tenderness Skin General skin exam: elasticity normal, turgor normal and dry skin Neuro General: patient oriented x3 Psych Appearance: grossly normal Mental Status: mental status grossly normal Assessment & Plan Assessment & Plan (1) Screening for colon cancer: Code(s): Z12.11 - Encounter for screening for malignant neoplasm of colon Category: Medical Plan Patient denies any GI, cardiac or respiratory symptoms.? Denies any issues with anesthesia in the past.? Denies any history of sleep apnea.? No history infectious diseases in the past or present.? Not on any anticoagulation therapy.? No family or personal history of colon cancer or polyps.? Patient denies melena, hematochezia, unintentional weight loss or ribbon like stools.? Patient reports occasional palpitations and has cardiology appointment in October. Will ask community sports coordinator to add clearance to the appointment. Most likely patient will be role risk as she has no chest pain, chest pressure or shortness of breath during her exercises. Patient reports that she runs daily. Discussed at length the pre-procedure,? prep, diet & medications as well as what to expect prior, during and after the procedure.?? Stressed the importance of good bowel prep.? Recommended the use of Vaseline or Calmoseptine OTC & baby wipes with bowel movements to promote comfort.? ?Patient verbalizes understanding and agrees to plan of care.? She was given the opportunity to ask questions and all questions answered.? We will see her after the procedure.? Medications: New bisacodyl (Dulcolax (bisacodyl)) take 4 tabs at noon the day before your colonoscopy 20 mg (4 x 5 mg) PO ONCE 1 day 4 tabs 0RF constipation Z12.11 - Encounter for screening for malignant neoplasm of colon polyethylene glycol 3350 (Miralax) As directed by gastroenterology department at [facility] 238 grams PO ONCE 238 grams 0RF Z12.11 - Encounter for screening for malignant neoplasm of colon Coding Level of Care Code New Pt Level 3 (33741) Diagnoses Screening for colon cancer Z12.11 Time Spent (min) 40 Comment 30 minutes spent with patient and additional 10 minutes spent reviewing her records
[2024-10-11 13:01] VITALS: BP 124/58; PULSE 52; O2SAT 100; BMI 18.4
== END 2024-10-11 14:12 | disposition home or self-care (01) ==
PROVIDERS: PCP Nurse Practitioner Family; Visit Provider Nurse Practitioner Family
DX: Z01.818 Encounter for other preprocedural examination (principal); Z12.11 Encounter for screening for malignant neoplasm of colon
CPT/HCPCS: S0285

== ENCOUNTER → 2024-10-11 12:53 | Outpatient (BNVA) | payer BC, SELFPAY | PROVIDERS: PCP Nurse Practitioner Family; Visit Provider Nurse Practitioner Family ==

== ENCOUNTER 2024-10-14 11:43 | Outpatient (AMB) | payer BC, SELFPAY ==
--- NOTE | 2024-10-14 12:02 | A.OFFVIS_ITS ---
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 Beverly 63 yr old female presents today as a new patient for her right arm pain, neuralgia and neuritis. States pain started in her right arm pit in late May, she thought it was a irritation to her deodorant. Later was seen at [facility] who sent pt to have a U/S and Mammogram and results were negative for any tumors. Currently states her pain is random and travels across her breast and to the sides of her breast. No MRI done however PCP will be having a peer to peer to have it approved. Referred by PCP Jerel Echols Allergies No Known Allergies [No Known Allergies*] Allergy (Verified 10/14/24 12:09) Medication List - Last Reconciled 10/14/24 by Radha Guerra MD bisacodyl (Dulcolax (bisacodyl)) 20 mg (4 x 5 mg) PO ONCE 1 day hydrocortisone 2.5% (Anusol-HC) 1 appl [place] BID-QID PRN lorazepam 0.5 mg PO ONCE PRN 1 day polyethylene glycol 3350 (Miralax) 238 grams PO ONCE HPI Comments Details: States pain started in her right arm pit in late May, she thought it was a irritation to her deodorant. Later was seen at [facility] care who sent pt to have a U/S and Mammogram and results were negative for any tumors. Currently states her pain is random and travels across her breast and to the sides of her breast. Ordered thoracic MRI but denied by insurance, however PCP will be having a peer to peer to have it approved. Patient is claustrophobic. Denies inciting injuries and past cervical/thoracic/lumbar issues in the past. No neck pain. Random episodes now of soreness on both armpits, right worse. Denies burning or tingling or numbness. No skin irritation or hypersensitivity. Would get on anterior chest. She was tingling on fingertips, especially on right 5th digit, last episode was 2 months ago. No weakness. No PT yet. 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 Patient was appropriately conversant and oriented. Good historian. MSK: Inspection reveals appropriate head and neck positioning. No pain with palpation over the neck musculature. No pain on cervical thoracic spinous processes or facets or paraspinals. Cervical ROM was full. Spurling's sign negative. No scapular winging. No tenderness over pectoralis muscles. No atrophy seen. Bilateral shoulder, elbow and wrist ROM WNL. No ligamentous laxity or crepitance. No increased effusion. No specific abnormalities or instability found on inspection and palpation of the spine and extremities. Strength is 5/5 in all muscle groups tested. No increased tone noted. Neurological: Neurologic examination of the upper and lower extremities was nonfocal with intact sensation, muscle stretch reflexes and without focal motor deficits . Cam?s negative bilaterally. Babinski was down going bilaterally. Clonus was negative. Gait is non-antalgic without loss of balance. Results Reviewed Results Reviewed: I independently reviewed the results of the following: We looked at thoracic and cervical x-ray images together. Thoracic x-ray shows preserved disc spaces with good alignment. Cervical x-ray did show some endplate spurs and decreased disc space at C4-5 and C5-6. Ordering Physician: Jerel Echlos Date of Service: 08/17/24 Procedure(s): XR thoracic spine 2V Accession Number(s): [id number] cc: Jerel Echols~ EXAMINATION: XR CERVICAL SPINE ; XR THORACIC SPINE CLINICAL INFORMATION: Pain in unspecified upper arm M79.629. COMPARISON: None TECHNIQUE: 2 images of cervical spine and 2 images of thoracic spine. FINDINGS: There is normal thoracic kyphosis. The vertebral heights, alignment and disc heights are preserved. No visible acute fracture, dislocation or subluxation seen. There is minimal dextroscoliosis of the mid dorsal level. The paravertebral soft tissues are normal. XR/XR thoracic spine 2V IMPRESSION: Minimal dextroscoliosis mid dorsal spine. No visible acute fracture, dislocation or lytic process seen. EXAMINATION: XR CERVICAL SPINE ; XR THORACIC SPINE CLINICAL INFORMATION: Pain in unspecified upper arm M79.629. COMPARISON: None TECHNIQUE: 2 images of cervical spine and 2 images of thoracic spine. FINDINGS: There is normal thoracic kyphosis. The vertebral heights, alignment and disc heights are preserved. No visible acute fracture, dislocation or subluxation seen. There is minimal dextroscoliosis of the mid dorsal level. The paravertebral soft tissues are normal. XR/XR cervical spine 2V IMPRESSION: Minimal dextroscoliosis mid dorsal spine. No visible acute fracture, dislocation or lytic process seen. I reviewed records from the following: PCP Assessment & Plan Assessment & Plan (1) Neuropathic pain of chest: Code(s): M79.2 - Neuralgia and neuritis, unspecified Category: Medical (2) Cervical spondylosis: Code(s): M47.812 - Spondylosis without myelopathy or radiculopathy, cervical region Category: Medical Plan Dull soreness on her chest area. Exam does not show any red flags for cervical or thoracic myelopathy or radiculopathy. Thoracic MRI pending, needs peer to peer with PCP. She has not done physical therapy yet but she has done home exercises without relief. I am putting a referral to physical therapy, maybe work on posture and thoracic muscles. She says she will be seeing a dramatic arts historian to make sure this is not of cardiac origin. Assessment and plan discussed with patient, and patient was agreeable. All questions were answered thoroughly. Radha Guerra MD, KELLY Board Certified, [place] [employer] and Rehabilitation (ABPMR) Board Certified, [place] [employer] Electro[employer] (ABEM) Orders: Orders PT Evaluation and Treatment Today M47.812 - Spondylosis without myelopathy or radiculopathy, cervical region, M79.2 - Neuralgia and neuritis, unspecified Coding Level of Care Code New Pt Level 4 (30389) Diagnoses Neuropathic pain of chest M79.2 Cervical spondylosis M47.812
== END 2024-10-14 12:41 | disposition home or self-care (01) ==
PROVIDERS: PCP Nurse Practitioner Family; Visit Provider Physical Medicine & Rehabilitation
DX: M47.812 Spondylosis without myelopathy or radiculopathy, cervical region (principal); M79.2 Neuralgia and neuritis, unspecified
CPT/HCPCS: 99204

== ENCOUNTER 2024-10-24 09:13 | Outpatient (AMB) | payer BC, SELFPAY ==
[2024-10-24 09:50] VITALS: BP 108/70; PULSE 56; TEMP 36.6; O2SAT 99; BMI 18.0
--- NOTE | 2024-10-24 09:50 | AM.OFFWIN_ITS ---
Intake Vital Signs 10/24/24 09:50 Height 5 ft 9 in Weight 122 lb BMI 18.0 BP 108/70 Blood Pressure Location Lt brachial Position Sitting Pulse 56 Pulse Source Pulse Oximeter Temp 97.9 F Temp Source Oral Pulse Oximetry (%) 99 Intake Visit Reasons: EP RT side of belly button swollen, painful Patient Tobacco Use Status: Never used Tobacco Allergies No Known Allergies [No Known Allergies*] Allergy (Verified 10/24/24 09:52) Do you need a note to return to daycare/school/sports/work: No HPI HPI Comments History of Present Illness Details 63 y/o female patient who presents to [facility] with c/o RLQ abdominal pain and swelling x 1.5 weeks. Reports feeling something swollen and TTP @ RLQ. Denies constipation or diarrhea. 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 Current occupational exposures/hazards: No Cognitive needs: No Hearing needs: No Vision needs: Yes Review of Systems Const All systems reviewed & are unremarkable except as noted in HPI and below Physical Exam Vital Signs: Last Vital Signs Temp 97.9 F 10/24/24 09:50 Pulse 56 10/24/24 09:50 BP 108/70 10/24/24 09:50 Pulse Ox 99 10/24/24 09:50 BMI result Body Mass Index 18.0 Const General: cooperative and no acute distress Nutritional Appearance: thin Orientation/consciousness: patient oriented x3 Cardio Bruits: no abdominal aortic bruits GI Inspection: Yes normal to inspection and No distended Palpation (GI): No Abdominal aortic bruit present, Soft to palpation, not firm, Tenderness to palpation present (GI) in the RLQ, no guarding, not rigid and No hepatosplenomegaly present Percussion: Yes normal to percussion Auscultation: Hypoactive bowel sounds present Rectal Exam - Female: deferred Neuro General: patient oriented x3 Assessment & Plan Assessment & Plan (1) Abdominal pain, right lower quadrant: Code(s): R10.31 - Right lower quadrant pain Plan: Unable to feel any lumps, or masses at the point of discomfort. Abdomen Flat, soft with Mild TTP @ RLQ Will have PCP order either Abd U/S or CT scan. Coding Level of Care Code Est Pt Level 4 (33393) Diagnoses Abdominal pain, right lower quadrant R10.31 Time Spent (min) 20
== END 2024-10-24 10:18 | disposition home or self-care (01) ==
PROVIDERS: PCP Nurse Practitioner Family; Visit Provider Nurse Practitioner Family
DX: R10.31 Right lower quadrant pain (principal)

== ENCOUNTER → 2024-10-24 09:13 | Outpatient (BNVA) | payer BC, SELFPAY | PROVIDERS: PCP Nurse Practitioner Family ==

== ENCOUNTER → 2024-10-30 09:43 | Outpatient (BNV) | payer BC, SELFPAY | PROVIDERS: PCP Nurse Practitioner Family; Visit Provider Radiology Vascular & Interventional Radiology | DX: M54.6 Pain in thoracic spine (principal) | CPT/HCPCS: 72146 ==

== ENCOUNTER 2024-10-30 09:46 | Outpatient (REF) | payer BC, SELFPAY ==
--- NOTE | ~2024-10-30 | MR_ITS ---
CLINICAL HISTORY: M54.6 - Pain in thoracic spine MR thoracic spine without gadolinium Comparison: None Findings: No scoliosis or spondylolisthesis. No acute fracture or pathologic bone lesion. Unremarkable thoracic cord. Small hemangioma suggested within T7 No significant degenerative change. No stenoses. Paraspinous musculature intact. IMPRESSION: No acute findings. No suspicious lesion. No fracture or malalignment. No central canal stenosis or significant neural foraminal narrowing identified. This document has been electronically signed by: Robe Christianson MD on 10/31/2024 13:12:46
== END 2024-10-30 09:47 | disposition home or self-care (01) ==
LOC: HO.MRI 09:46
PROVIDERS: PCP Nurse Practitioner Family; Visit Provider Nurse Practitioner Family
DX: M54.6 Pain in thoracic spine (principal); M79.2 Neuralgia and neuritis, unspecified
CPT/HCPCS: 72146

== ENCOUNTER 2024-11-09 07:05 | Outpatient (AMB) | payer BC, SELFPAY ==
--- NOTE | 2024-11-09 07:45 | MHC.OFFVIS ---
Intake Visit Reasons: follow up on tests Allergies No Known Allergies [No Known Allergies*] Allergy (Verified 11/09/24 07:48) Medication List - Last Reconciled 11/09/24 by OMERO Soto- No Known Home Meds HPI HPI follow up on tests: Details: History of Present Illness The patient is a 63-year-old female presenting with ongoing intermittent axillary discomfort and lateral breast irritation. The symptoms began in May and have progressed to include bilateral breast involvement, exacerbated by deodorant usage in the beginning. Breast ultrasounds and mammogram show no acute abnormalities, and a recent cervical spine X-ray was non-acute. A thoracic MRI was performed due to potential spine-related symptomatology, with no acute findings noted. She also shows rare supraventricular ectopy on a three-day Holter monitor with corresponding episodes of atrial tachycardia suspected in alignment with reported symptoms. The cardiac status is further supported by an essentially normal EKG in May. Pts symptoms correlated with tachycardia and SR. Pt saw a Community Development Officer for which physical therapy was recommended Incidental finding of atelectasis was noted during a CT urogram for microscopic hematuria, with no immediate respiratory distress or significant symptoms affecting her regular uvjm-uga-b-week running regimen. Review of Systems - Respiratory: Denies fever, chills, or shortness of breath. - Activity: Reports running five days a week. PE: No acute distress noted, A+Ox3 Plan The primary focus is on managing axillary discomfort, chest discomfort, and lateral breast irritation with ongoing symptom observation. transfer coordinator-recommended physical therapy, which pt starts in the near future. Cardio evaluation will proceed through an upcoming cardiology visit to explore supraventricular and tachycardia issues, as earlier EKG findings were inconclusive. The unexpected atelectasis condition noted in CT, without respiratory distress, fevers, chills, suggests further follow-up most likely with imaging. Discussion Notes The patient's symptoms and likely diagnoses were discussed, and I emphasized the necessity of monitoring axillary and breast discomfort, chest sensations, reach out to me via portal/seek medial attention. The potential cardiac implications of rare ectopy noted on Holter were highlighted, prompting an upcoming vice president quality assurance visit. I discussed anxiety as a differential, emphasizing symptom monitoring post-organic exclusion. I advised the patient on the criticality of thoracic MRI findings, albeit non-acute, while further pursuing physical therapy for symptomatic relief of neck/thoracic ? nerve involvement. Pulmonary evaluation (XR) was acknowledged in light of the atelectasis finding without immediate respiratory intervention. The patient was instructed on symptom tracking and the importance of portal communications for ongoing concerns and queries. Patient Instructions - Monitor axillary, chest, breast irritation symptoms - Attend vice president quality assurance appointment as scheduled - Begin physical therapy - Report any respiratory symptoms or changes - Continue regular activities, but report unusual symptoms - Use the portal communication for any questions or health updates -further explore possible anxiety component [facility] Medical History (Updated 11/09/24 @ 07:47 by Jerel Echols, [facility]-) Abdominal pain, right lower quadrant Dense breast tissue on mammogram Surgical History (Updated 11/04/24 @ 12:43 by Manisha Negrete MD) Hx of colonoscopy (~2013) Family History Mother Breast cancer Maternal Aunt Lung cancer Breast cancer Social History Household Members: Spouse Housing: House Patient Tobacco Use Status: Never used Tobacco e-Cigarette/Vaping Use: Never Used service: No Current occupational status: employed 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 Current occupational exposures/hazards: No Cognitive needs: No Hearing needs: No Vision needs: Yes Telehealth Telehealth Telehealth Platform: [employer] Location of provider rendering services: practice address Location of patient: address on file Patient Identification confirmed using: Name, : Yes Telehealth method: video Patient verbally consented to treatment: Yes Patient verbally consented to billing insurance company: Yes Patient informed of any privacy concerns related to visit: Yes Minutes spent on Phone/Video with Pt.: 20 Assessment & Plan Assessment & Plan (1) Atelectasis of both lungs: Code(s): J98.11 - Atelectasis Category: Medical (2) Axillary pain: Code(s): M79.629 - Pain in unspecified upper arm Category: Medical (3) Chest discomfort: Code(s): R07.89 - Other chest pain Category: Medical Plan . Orders: Orders XR chest 2V Today J98.11 - Atelectasis Coding Level of Care Code Tele Est Pt Level 3 (81590) Diagnoses Atelectasis of both lungs J98.11 Axillary pain M79.629 Chest discomfort R07.89
== END 2024-11-09 08:11 | disposition home or self-care (01) ==
LOC: HO.HMCC 07:06
PROVIDERS: PCP Nurse Practitioner Family; Visit Provider Nurse Practitioner Family
DX: J98.11 Atelectasis (principal); M79.621 Pain in right upper arm; R07.89 Other chest pain; M79.622 Pain in left upper arm

== ENCOUNTER → 2024-11-09 07:05 | Outpatient (BNVA) | payer BC, SELFPAY | PROVIDERS: PCP Nurse Practitioner Family; Visit Provider Nurse Practitioner Family ==

== ENCOUNTER 2024-11-10 10:41 | Outpatient (REF) | payer BC, SELFPAY ==
--- NOTE | ~2024-11-10 | XR_ITS ---
EXAMINATION: XR CHEST 2 VIEWS HISTORY: J98.11 - Atelectasis COMPARISON: There are no prior studies for comparison. FINDINGS: PA and lateral views of the chest are submitted. The lungs are hyperinflated, consistent with COPD. The lungs are clear. There is no pleural effusion, pneumothorax, or pulmonary vascular congestion. The heart is normal in size. The bones are intact. XR/XR chest 2V IMPRESSION: COPD. The lungs are clear. Electronically signed by: Manuel Page MD 11/10/2024 12:00 PM EDT
== END 2024-11-10 10:42 | disposition home or self-care (01) ==
LOC: HO.HMGCLDS 10:41
PROVIDERS: PCP Nurse Practitioner Family; Visit Provider Nurse Practitioner Family
DX: J98.11 Atelectasis (principal)
CPT/HCPCS: 71046

== ENCOUNTER → 2024-11-10 10:44 | Outpatient (BNV) | payer BC, SELFPAY | PROVIDERS: PCP Nurse Practitioner Family; Visit Provider Radiology Diagnostic Radiology | DX: J44.9 Chronic obstructive pulmonary disease, unspecified (principal) | CPT/HCPCS: 71046 ==

== ENCOUNTER 2024-11-11 07:49 | Outpatient (REF) | payer BC, SELFPAY ==
--- NOTE | ~2024-11-11 | CT_ITS ---
EXAMINATION: CT CHEST WITH CONTRAST CLINICAL INFORMATION: Chest pain, other. COMPARISON: No prior CT. Chest x-ray dated 11/10/2024. TECHNIQUE: Multidetector volumetric CT imaging of the chest was obtained after the administration of 50 mL of Omnipaque 350 intravenous contrast without immediate adverse reactions. Axial MIP volume rendering provided. Sagittal and coronal reformatted images were obtained. This CT examination was performed using dose optimization techniques as appropriate, variously including the following: *Automated exposure control *Adjustment of mA and/or kV according to patient size (this includes techniques or standardized protocols for targeted exams where dose is matched to indication/reason for exam; i.e. extremities or head) *Use of iterative reconstruction technique FINDINGS: PULMONARY NODULES: -No suspicious pulmonary nodule identified. LUNGS: -There is mild centrilobular emphysema with pulmonary hyperaeration. Mild biapical scarring. -There are is linear scarring or atelectasis in the lateral bilateral lower lobes. -There are no consolidations or abnormal groundglass opacities. -There is no pleural effusion or pneumothorax. -Small airways have a normal appearance. -The central airways are patent. 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 There is no aortic aneurysm or significant atheromatous plaque. -There is no adenopathy or mass. -The main pulmonary artery is normal in caliber. -Heart size is borderline enlarged. There is no pericardial effusion. No significant coronary calcification. -There is a right inferior thyroid lobe nodule measuring 1.8 x 1.1 cm. Consider correlating with ultrasound if not are performed. -Normal-appearing esophagus and GE junction. AXILLA/CHEST WALL: No lymphadenopathy. UPPER ABDOMEN: Unremarkable OSSEOUS STRUCTURES: No suspicious lytic or blastic bone lesions. Mild spinal degenerative changes. CT/CT chest w IV con IMPRESSION: 1. There is mild centrilobular emphysema. There is no active disease of the lungs. There are no suspicious nodules identified. 2. There is borderline cardiac enlargement. 3. There is a right inferior thyroid lobe 1.8 x 1.1 cm nodule. Consider correlating with ultrasound if not already performed. 4. Ancillary findings as discussed. Electronically signed by: Pravin Valenzuela MD 11/11/2024 09:30 AM EDT
== END 2024-11-11 07:50 | disposition home or self-care (01) ==
LOC: HO.CT 07:49
PROVIDERS: PCP Nurse Practitioner Family; Visit Provider Nurse Practitioner Family
DX: R07.89 Other chest pain (principal); R09.89 Other specified symptoms and signs involving the circulatory and respiratory systems
CPT/HCPCS: 71260

== ENCOUNTER → 2024-11-11 07:52 | Outpatient (BNV) | payer BC, SELFPAY | PROVIDERS: PCP Nurse Practitioner Family; Visit Provider Radiology Diagnostic Radiology | DX: E04.1 Nontoxic single thyroid nodule (principal) | CPT/HCPCS: 71260 ==

== ENCOUNTER 2024-11-18 10:16 | Outpatient (REF) | payer BC, SELFPAY ==
--- NOTE | ~2024-11-18 | US_ITS ---
CLINICAL HISTORY: R10.31 - abd pain US abdomen complete Comparison: None Findings: The visualized pancreas is normal. The aorta and inferior vena cava are normal caliber. The appearance of the liver suggests fatty infiltration without focal lesion. There is no intrahepatic bile duct dilatation. The common duct is 1.4 mm in diameter. The gallbladder is normal. There is no sonographic Goldberg sign. The main portal vein is antegrade. The right kidney is 11.2 cm in length. The left kidney is 12.4 cm in length. The spleen is normal. No ascites. IMPRESSION: 1. Hepatic steatosis. This document has been electronically signed by: Waqas Jordan MD on 11/19/2024 08:28:25
== END 2024-11-18 10:17 | disposition home or self-care (01) ==
LOC: HO.HMGCX 10:16
PROVIDERS: PCP Nurse Practitioner Family; Visit Provider Nurse Practitioner Family
DX: R10.31 Right lower quadrant pain (principal)
CPT/HCPCS: 76700

== ENCOUNTER → 2024-11-18 10:21 | Outpatient (BNV) | payer BC, SELFPAY | PROVIDERS: PCP Nurse Practitioner Family; Visit Provider Specialist | DX: K76.0 Fatty (change of) liver, not elsewhere classified (principal); R10.31 Right lower quadrant pain | CPT/HCPCS: 76700 ==

== ENCOUNTER 2024-11-22 07:18 | Outpatient (AMB) | payer BC, SELFPAY ==
--- NOTE | 2024-11-22 07:56 | A.OFFPC_ITS ---
Intake Visit Reasons: Pre-op cataracts (no ekg or labs) Allergies No Known Allergies [No Known Allergies*] Allergy (Verified 11/09/24 07:48) Medication List - Last Reconciled 11/22/24 by TIGRE Soto No Known Home Meds Tobacco use date assessed: 05/17/24 Dental Screening Dental Screen Date: 05/17/24 HPI Pre-op cataracts (no ekg or labs) HPI Details History of Present Illness The patient is a 63-year-old female presenting with the intent to be medically cleared for cataract surgery. She is scheduled for surgical procedures on both eyes, to be conducted a week apart. The patient displays enthusiasm regarding her forthcoming surgery. She denies any current fevers, chills, nausea, vomiting, or signs indicative of infection. Although she underwent recent laboratory evaluations, the specifics of those results were not addressed as no additional tests or EKG are deemed necessary for the pending surgical clearance. Review of Systems - General: Denies fevers, chills. - Gastrointestinal: Denies nausea, vomit ing. - Immune: Denies symptoms suggesting cur rent infection. Plan The patient is cleared for cataract surgery on both eyes, scheduled a week apart, with no further laboratory tests or EKG required. This decision is based on the patient's asymptomatic status and recent lab evaluations meeting procedural standards. Discussion Notes I confirmed that the patient is excited about her upcoming cataract surgery and confirmed her understanding of the surgical procedures planned for both eyes successively. We discussed that no further diagnostic tests such as an EKG or additional lab work are required given her current health status. The patient was informed about the absence of any signs of infection and acknowledged the importance of attending her scheduled operations and following up post- procedure. Patient Instructions - Follow the pre-operative instructions provided by the nutrition representative. - Be on time for each scheduled eye surg geovanny. - Report any new symptoms such as fever, chills, or signs of infection immediately. - Arrange for transportation and assista nce during the recovery period post- surgery. - Attend all follow-up appointments as i nstructed by the surgical team. 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 Manuel Yo, Margoth Raines, Dao Escobar and colleagues, with an educational mary from [employer]. Physical exam (Primary Care) Tobacco/Smoking Status: Tobacco use Status Tobacco use date assessed 05/17/24 11/22/24 07:57 Patient Tobacco Use Status Never used Tobacco 11/22/24 07:57 e-Cigarette/Vaping Use Never Used 11/22/24 07:57 Thrive Assessment: Date of Thrive Assessment Date Thrive assessed 10/13/24 11/22/24 07:57 Telehealth Telehealth Telehealth Platform: [facility] Location of provider rendering services: practice address Location of patient: address on file Telehealth method: video Patient verbally consented to treatment: Yes Patient verbally consented to billing insurance company: Yes Patient informed of any privacy concerns related to visit: Yes Minutes spent on Phone/Video with Pt.: 15 Coding Level of Care Code Tele Est Pt Level 3 (41046) Diagnoses Pre-op evaluation Z01.818 Assessment & Plan Assessment & Plan (1) Pre-op evaluation: Code(s): Z01.818 - Encounter for other preprocedural examination Category: Medical Plan .
== END 2024-11-22 09:31 | disposition home or self-care (01) ==
PROVIDERS: PCP Nurse Practitioner Family; Visit Provider Nurse Practitioner Family
DX: Z01.818 Encounter for other preprocedural examination (principal)

== ENCOUNTER → 2024-11-22 07:18 | Outpatient (BNVA) | payer BC, SELFPAY | PROVIDERS: PCP Nurse Practitioner Family; Visit Provider Nurse Practitioner Family ==

== ENCOUNTER 2024-11-23 08:14 | Outpatient (AMB) | payer BC, SELFPAY ==
[2024-11-23 08:21] VITALS: BP 110/70; PULSE 56; BMI 17.8
--- NOTE | 2024-11-23 08:21 | A.OFFVIS_ITS ---
Vital Signs 11/23/24 08:21 Height 5 ft 9 in Weight 120 lb 5.958 oz BMI 17.8 BP 110/70 Blood Pressure Location Lt brachial Position Sitting Pulse 56 Intake Visit Reasons: MEDICARE SPECIALIST/Palpitations/ [place]on+ preop colonoscopy Refrigerator Glazier Required: No Accompanied by: Self / Same As Patient Allergies No Known Allergies [No Known Allergies*] Allergy (Verified 11/09/24 07:48) Medication List - Last Reconciled 11/23/24 by Jean Elizabeth MD calcium carbonate 600 mg PO BID HPI Comments Details: Beverly is here for consultation regarding palpitations and shortness of breath. She states that she is fairly active without any major limitations. She exercise on the treadmill, elliptical extra regularly. She states that whenever she is exercising on the treadmill, she feels sensations of heart racing and she also feels short of breath and has slow down. Hence she is referred for evaluation. No clear-cut anginal-type symptoms. No previous cardiac history. Otherwise, no major comorbidities. Nonsmoker. [facility] Medical History Abdominal pain, right lower quadrant Dense breast tissue on mammogram Surgical History Hx of colonoscopy (~2013) Family History (Updated 11/23/24 @ 08:41 by Jean Elizabeth MD) Mother Breast cancer Maternal Aunt Lung cancer Breast cancer Father CHF (congestive heart failure) Brother H/O cardiac radiofrequency ablation Social History (Updated 11/23/24 @ 08:26 by Diane Murray CMA) Household Members: Spouse Housing: House Alcohol intake: current Alcohol intake frequency: holidays/special occasions only Patient Tobacco Use Status: Never used Tobacco e-Cigarette/Vaping Use: Never Used service: No Current occupational status: employed 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 Current occupational exposures/hazards: No Cognitive needs: No Hearing needs: No Vision needs: Yes Review of Systems Const Denies chills, Denies daytime sleepiness, Denies fatigue, Denies fever(s), Denies poor appetite, Denies snoring, Denies stops breathing during sleep, Denie s weakness, Denies weight gain and Denies weight loss Eyes Denies loss of vision ENT Denies dizziness and Denies hearing loss Card Denies chest pain, Reports irregular heart rhythm, Denies claudication, Denies leg edema, Denies lightheadedness, Denies palpitations, Reports dyspnea on exertion and Denies orthopnea Resp Denies cough, Denies excessive phlegm production, Reports dyspnea on exertion, Denies snoring and Denies wheezing GI Denies abdominal pain, Denies hematochezia, Denies change in bowel habits, Denies nausea and Denies vomiting Denies urinary frequency and Denies dysuria Musc Denies arthralgias, Denies muscle weakness, Denies numbness and Denies other Skin/Breast Denies nail changes and Denies rash Neuro Denies Abnormal speech present, Denies dizziness, Denies loss of vision, Denies memory loss, Denies numbness and Denies weakness Psych Denies depression and Denies memory loss Endo Denies fatigue and Denies palpitations Rufino/Lymph Denies easy bruising Aller/Immun Denies wheezing Physical Exam Vital Signs: Last Vital Signs Pulse 56 11/23/24 08:21 BP 110/70 11/23/24 08:21 BMI result Body Mass Index 17.8 Const General: comfortable and no acute distress Orientation/consciousness: patient oriented x3 HEENT Other: Unremarkable Head: Yes normal to inspection Neck Neck: Yes normal visual inspection Chest Chest palpation & inspection: normal inspection of the chest Resp Auscultation: clear to auscultation bilaterally Cardio Palpation: normal PMI Heart sounds: S1 normal heart sound present, S2 normal heart sound present, no gallops, no murmurs and no rubs GI Palpation (GI): Soft to palpation Back/Spine/Pelvis Other: unremarkable Skin General skin exam: no rashes or lesions noted Neuro General: patient oriented x3 Speech: No Abnormal speech present Extrem General: Yes normal to inspection Psych Mental Status: mental status grossly normal Office Procedures EKG Details: EKG with sinus bradycardia at 56/Min; no significant ST-T changes and otherwise unremarkable. [place]. [id number], Complete Assessment & Plan Assessment & Plan (1) Palpitations: Code(s): R00.2 - Palpitations Category: Medical (2) SOB (shortness of breath): Code(s): R06.02 - Shortness of breath Category: Medical (3) Atrial tachycardia: Code(s): I47.19 - Other supraventricular tachycardia Category: Medical Plan Baseline EKGs unremarkable. In a prior 3 day Holter, underlying rhythm is sinus with rare supraventricular ectopy/short atrial runs. In that study, palpitations correlated with tachycardia episodes and sinus rhythm. Because of symptoms of shortness of breath/palpitations while exercising on treadmill, we will perform an exercise stress test and also get an echocardiogram. Repeat Holter to have a longer duration and maintain accurate symptom diary. Follow-up after the above. Orders: Orders CA echo transthoracic complete Today R06.02 - Shortness of breath CA echo stress exercise Today R06.02 - Shortness of breath, R07.2 - Precordial pain ECG 7 day holter monitor Today R00.2 - Palpitations Coding Level of Care Code New Pt Level 4 (42651) Complex EM visit Add On G2211 Diagnoses Palpitations R00.2 SOB (shortness of breath) R06.02 Atrial tachycardia I47.19 CPT Codes EKG - CPT: 81701-[id number], Complete ([id number])
== END 2024-11-23 09:11 | disposition home or self-care (01) ==
LOC: HO.HCS 08:15
PROVIDERS: PCP Nurse Practitioner Family; Visit Provider Internal Medicine
DX: R00.2 Palpitations (principal); R06.02 Shortness of breath; I47.19 Other supraventricular tachycardia; R00.1 Bradycardia, unspecified
CPT/HCPCS: 93010; 99214

== ENCOUNTER → 2024-11-23 08:14 | Outpatient (BNVA) | payer BC, SELFPAY | PROVIDERS: PCP Nurse Practitioner Family; Visit Provider Internal Medicine | DX: R00.2 Palpitations (principal); R06.02 Shortness of breath; R07.2 Precordial pain; I47.19 Other supraventricular tachycardia | CPT/HCPCS: 93005 ==

== ENCOUNTER 2024-11-30 10:51 | Outpatient (REF) | payer BC, SELFPAY ==
--- NOTE | 2024-11-30 10:54 | PFT_ITS ---
Flows: FEV1: 92 % of predicted at 2.64 L FVC: 111 % of predicted at 4.07 L FEV1/FVC: 65 % Bronchodilator response: Present in small to medium airways only Volumes: Total lung capacity: 105 % of predicted at 6.32 L Residual volume: 104 % of predicted at 2.19 L Slow vital capacity: 106 % of predicted at 4.13 L Expiratory reserve volume: 126 % of predicted at 1.27 L Diffusion capacity: Normal Impression: Mild obstructive ventilatory defect with bronchodilator response present in small to medium airways only. MTDD
[2024-11-30 11:36] VITALS: PULSE 65; O2SAT 99
== END 2024-11-30 10:52 | disposition home or self-care (01) ==
LOC: HO.RESP 10:51
PROVIDERS: PCP Nurse Practitioner Family; Visit Provider Nurse Practitioner Family
DX: R09.89 Other specified symptoms and signs involving the circulatory and respiratory systems (principal); F43.9 Reaction to severe stress, unspecified
CPT/HCPCS: 94010; 94640; 94727; 94729

== ENCOUNTER → 2024-11-30 10:54 | Outpatient (BNV) | payer BC, SELFPAY | PROVIDERS: PCP Nurse Practitioner Family; Visit Provider Internal Medicine Pulmonary Disease | DX: R09.89 Other specified symptoms and signs involving the circulatory and respiratory systems (principal) | CPT/HCPCS: 94060; 94727; 94729 ==

== ENCOUNTER → 2024-12-14 07:51 | Outpatient (REF) | payer BC, SELFPAY ==
--- NOTE | 2024-12-14 07:57 | CA_ITS ---
Transthoracic Echocardiogram Patient (Last, First, Middle): Beverly Sandy K Gender: Female Date of : 1960 Age: 63 Procedure Date: 12/14/2024 Procedure Type: Transthoracic Echocardiogram Location: OP Height: 175.26 cm Weight: 54.43 kg BSA: 1.66 m2 Heart Rate: bpm BP: 118 / 60 mmHg Studio Technician Video Operator: Referring MD: Jean Elizabeth MD Radar Engineering Teacher: Yuan Agarwal MD Symptoms: R06.02 - Shortness of breath Study Quality: Adequate ECG Rhythm: Sinus Conclusions: - 1. Normal LV ejection fraction of 60 65% with grade 1 diastolic dysfunction 2. Normal cardiac valvular Dopplers 3. Normal RV systolic pressure 4. No gross pericardial effusion Findings Left Ventricle Normal left ventricular size, thickness, and systolic function. The visually estimated ejection fraction is between 60-65%. Spectral Doppler is indicative of an impaired relaxation filling pattern. E/E prime ratio is <8, consistent with normal filling pressures. Evidence suggests grade I (mild) diastolic dysfunction. Right Ventricle Normal right ventricular cavity size and systolic function. Atria Both atria are normal in size. Interatrial shunt cannot be excluded. There is a prominent eustachian valve. Aortic Valve Normal aortic valve structure and function. There is no aortic valve stenosis. There is no aortic valve regurgitation. Mitral Valve Normal mitral valve structure and function. There is trace mitral valve regurgitation. There is no mitral valve stenosis. Pulmonic Valve The pulmonic valve is likely normal. Tricuspid Valve Normal tricuspid valve structure. There is trace tricuspid valve regurgitation. The right ventricular systolic pressure is normal. The right ventricular systolic pressure is 18 mmHg. Normal right atrial pressure. There is no evidence of pulmonary hypertension. Great Vessels All visible segments of the aorta are normal in size. The pulmonary artery was not well visualized. There is no dilatation of the ascending aorta measuring 3.20 cm. Venous The inferior vena cava is normal in size and collapses greater than 50% with inspiration. Pericardium/Pleural There is no evidence of pericardial effusion. Prior Study Comparison No previous study in the last 5 years for comparison Measurements 2D Linear Measurements IVSd: 0.74 0.6-0.9/0.6-1.0 cm LVIDd: 4.52 3.9-5.3/4.2-5.9 cm LVIDd Index: 2.72 2.4-3.2/2.2-3.1 cm/m2 LVIDs: 3.01 2.0-3.6 cm LVPWd: 0.84 0.7-1.1 cm Ao Root: 3.40 2.1-3.5 cm LA Diam: 2.30 2.7-3.8/3.0-4.0 cm LAIDs Index: 1.39 1.5-2.3 cm/m2 LV Mass: 139.79 67-162/88-224 g LV Mass Index: 84.21 43-95/49-115 g/m2 LVOT Diam: 2.00 3.0+(-)1.3 cm 2D Systolic Function EF 4C: 69.80 >55% EF 2C: 52.40 >55% EF BiP: 60.50 >55% Mitral Valve MV Pk E: 0.57 MV PK A: 0.69 MV Decel Time: 189.00 E/A: 0.80 E'Lateral: 6.42 E'Medial: 4.79 E/E' Med: 11.80 E/E' Lat: 8.80 PHT: 56.00 MVA PHT: 3.93 Decel Woodson: 2.98 Aortic Valve AoV Pk Marino: 1.19 AoV Mn Marino: 0.76 AoV VTI: 0.29 AoV Pk Grad: 6.00 Aov Mn Grad: 3.00 RANULFO Cont.VTI: 1.74 LVOT LVOT Pk Marino: 0.74 LVOT Mn Marino: 0.44 LVOT VTI: 0.16 LVOT Pk Grad: 2.00 LVOT Mn Grad: 1.00 LVOT Diam: 2.00 LVOT Area: 3.14 Diastolic Function MV Pk E: 0.57 MV Pk A: 0.69 E/A: 0.80 E'Medial: 4.79 E/E' Med: 11.80 E' Laterial: 6.42 E/E' Lat: 8.80 Right Ventricle TAPSE (mm): 30.00 TVS' Marino: 12.00 Tricuspid Valve TR Pk Marino: 1.94 TR Pk Grad: 15.00 RA Press: 3.00 RVSP: 18.00 Great Vessels Aorta Ao Root-2D: 3.40 2.0-3.7 cm Ao Asc: 3.20 2.1-3.4 cm Pulmonary Valve PV Pk Marino: 0.84 Peak PV Grad: 3.00 Updated in Other Vendor System with Status of Final Yuan Agarwal MD electronically signed on 12/15/2024 12:13:15 PM with status of Final
== END ==
LOC: HO.CARD 07:51
PROVIDERS: PCP Nurse Practitioner Family; Visit Provider Internal Medicine
DX: R06.02 Shortness of breath (principal)
CPT/HCPCS: 93306

== ENCOUNTER → 2024-12-14 07:57 | Outpatient (BNV) | payer BC, SELFPAY | PROVIDERS: PCP Nurse Practitioner Family; Visit Provider Internal Medicine Cardiovascular Disease | DX: I51.89 Other ill-defined heart diseases (principal) | CPT/HCPCS: 93306 ==

== ENCOUNTER 2024-12-16 15:22 | Outpatient (AMB) | payer BC, SELFPAY ==
--- NOTE | 2024-12-16 12:45 | A.OFFVIS_ITS ---
Vital Signs 12/16/24 15:27 Height 5 ft 9 in Weight 124 lb BMI 18.3 BP 110/68 Blood Pressure Location Rt brachial Position Sitting Pulse 60 Pulse Source Pulse Oximeter Pulse Oximetry (%) 97 Oxygen Delivery Method Room Air Intake Visit Reasons: Emphysema Process Development Chemist Required: No Shovel Operator: Shovel Operator offered & declined Accompanied by: Self / Same As Patient Allergies No Known Allergies [No Known Allergies*] Allergy (Verified 12/16/24 15:31) Medication List - Last Reconciled 12/16/24 by Opal Mock LPN calcium carbonate 600 mg PO BID HPI HPI Emphysema: Details: Beverly is a pleasant 63 year old female, never smoker, with no significant past medical history. She was referred by PCP for pulmonary evaluation after incidental finding of emphysema on recent chest CT. Report below. She was also sent for PFT which was suggestive of asthma COPD overlap syndrome. She denies prior h/o asthma/COPD. However did note recurrent URI as a child and continues with intermittent dry cough otherwise denies dyspnea or wheezing. She reports she is quite active but notes that she has never been able to sustain a fast pace, difficult to say if respiratory symptoms limit her exercise tolerance. She endorses seasonal allergies however mild except when she is exposed to cats then noticed increased respiratory symptoms. She denies occupational exposures. She reports maternal aunt, with h/o lung cancer otherwise denies any pertinent family history. [facility] Medical History Abdominal pain, right lower quadrant Dense breast tissue on mammogram Surgical History Hx of colonoscopy (~2013) Family History (Updated 11/23/24 @ 08:41 by Jean Elizabeth MD) Mother Breast cancer Maternal Aunt Lung cancer Breast cancer Father CHF (congestive heart failure) Brother H/O cardiac radiofrequency ablation Social History (Updated 12/16/24 @ 15:32 by Opal Mock LPN) Household Members: Spouse Housing: House Alcohol intake: current Alcohol intake frequency: holidays/special occasions only Patient Tobacco Use Status: Never used Tobacco e-Cigarette/Vaping Use: Never Used service: No Current occupational status: employed 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 Current occupational exposures/hazards: No Cognitive needs: No Hearing needs: No Vision needs: Yes Review of Systems Const Denies chills, Denies excessive sweating, Denies fever(s), Denies headache(s) and Denies night sweats Eyes Denies dry eyes, Denies irritation and Denies itchy eyes ENT Reports Normal hearing present, Denies headache(s), Denies nasal congestion, Denies nasal discharge, Denies post nasal drip and Denies sore throat Card Denies chest pain, Denies chest pain at rest, Denies chest pain with activity, Denies claudication, Denies leg edema, Denies dyspnea, Denies dyspnea on exertion, Denies orthopnea and Denies paroxysmal nocturnal dyspnea Resp Denies chest congestion, Denies excessive phlegm production, Denies pain on inspiration, Denies pain with cough, Denies dyspnea, Denies dyspnea on exertion, Denies stridor and Denies wheezing Musc Denies myalgias Neuro Reports Normal hearing present and Denies headache(s) Endo Denies excessive sweating Rufino/Lymph Denies lymphadenopathy Aller/Immun Denies itchy eyes, Denies seasonal rhinorrhea and Denies wheezing Physical Exam Vital Signs: Last Vital Signs Pulse 60 12/16/24 15:27 BP 110/68 12/16/24 15:27 Pulse Ox 97 12/16/24 15:27 Oxygen Delivery Method Room Air 12/16/24 15:27 BMI result Body Mass Index 18.3 Const General: cooperative, healthy appearing, comfortable, no acute distress, well developed and alert Orientation/consciousness: patient oriented x3 Limitations: no limitations HEENT Head: Yes normal to inspection, Yes normocephalic and Yes atraumatic Ears: hearing grossly normal bilaterally and external ears normal Eyes General: appearance normal, both eyes and all related structures Eyelids: Yes eyelids normal Sclerae: sclerae normal EOM: EOMs intact bilaterally Neck Neck: Yes normal visual inspection and Yes no lymphadenopathy Lymphatic: no lymphadenopathy noted Chest Chest palpation & inspection: normal inspection of the chest Resp Effort & Inspection: normal respiratory effort, able to speak in complete sentences, no audible wheezes, no cough, no stridor, not tachypneic, no tripod positioning and no use of accessory muscles Auscultation: clear to auscultation bilaterally Cardio Jugular venous distension: no JVD Rate: regular rate Rhythm: regular rhythm Skin Other: warm, dry General skin exam: no rashes or lesions noted Neuro General: patient oriented x3 Cranial nerves: Yes Normal hearing present Cognition (Neuro): normal cognition Gait exam (Neuro): Normal gait present Extrem General: Yes normal to inspection, Yes capillary refill normal, Yes no clubbing, cyanosis or edema and Yes no pedal edema Psych Appearance: grossly normal and well kempt Speech and movement: Normal speech and movement present and Clear speech present Affect: normal affect Attitude: cooperative Thought process: Normal thought process present Thought content: Normal thought content present Insight: Good insight present (Psych) Judgement: Good judgement present (Psych) Results Reviewed Results Reviewed: [address] [address] [address] Scan Report Signed Patient: Beverly Sandy MR#: [id number] : 1960 Acct:[id number] Age/Sex: 63 / F ADM Date: 11/11/24 Loc: .CT Attending Dr: Jerel LANDEROS Ordering Physician: Jerel Echols Date of Service: 11/11/24 Procedure(s): CT chest w IV con Accession Number(s): [id number] cc: Jerel cEhols~ Report Number: [id number]: Total DLP = 78.00 mGy-cm EXAMINATION: CT CHEST WITH CONTRAST CLINICAL INFORMATION: Chest pain, other. COMPARISON: No prior CT. Chest x-ray dated 11/10/2024. TECHNIQUE: Multidetector volumetric CT imaging of the chest was obtained after the administration of 50 mL of Omnipaque 350 intravenous contrast without immediate adverse reactions. Axial MIP volume rendering provided. Sagittal and coronal reformatted images were obtained. This CT examination was performed using dose optimization techniques as appropriate, variously including the following: *Automated exposure control *Adjustment of mA and/or kV according to patient size (this includes techniques or standardized protocols for targeted exams where dose is matched to indication/reason for exam; i.e. extremities or head) *Use of iterative reconstruction technique FINDINGS: PULMONARY NODULES: -No suspicious pulmonary nodule identified. LUNGS: -There is mild centrilobular emphysema with pulmonary hyperaeration. Mild biapical scarring. -There are is linear scarring or atelectasis in the lateral bilateral lower lobes. -There are no consolidations or abnormal groundglass opacities. -There is no pleural effusion or pneumothorax. -Small airways have a normal appearance. -The central airways are patent. 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 There is no aortic aneurysm or significant atheromatous plaque. -There is no adenopathy or mass. -The main pulmonary artery is normal in caliber. -Heart size is borderline enlarged. There is no pericardial effusion. No significant coronary calcification. -There is a right inferior thyroid lobe nodule measuring 1.8 x 1.1 cm. Consider correlating with ultrasound if not are performed. -Normal-appearing esophagus and GE junction. AXILLA/CHEST WALL: No lymphadenopathy. UPPER ABDOMEN: Unremarkable OSSEOUS STRUCTURES: No suspicious lytic or blastic bone lesions. Mild spinal degenerative changes. CT/CT chest w IV con IMPRESSION: 1. There is mild centrilobular emphysema. There is no active disease of the lungs. There are no suspicious nodules identified. 2. There is borderline cardiac enlargement. 3. There is a right inferior thyroid lobe 1.8 x 1.1 cm nodule. Consider correlating with ultrasound if not already performed. 4. Ancillary findings as discussed. Electronically signed by: Pravin Valenzuela MD 11/11/2024 09:30 AM EDT Dictated By: Pravin Valenzuela MD Signed By: <Electronically signed by Pravin Valenzuela MD in OV> 11/11/24 0930 DD/ 0809 TD/TT: 11/11/24 0820 Electrical Experimental Mechanic: Assessment & Plan Assessment & Plan (1) Asthma-COPD overlap syndrome: Code(s): J44.89 - Other specified chronic obstructive pulmonary disease Category: Medical (2) Emphysema of lung: Code(s): J43.9 - Emphysema, unspecified Category: Medical Plan Afua presents for pulmonary evaluation after recent CT chest revealed mild emphysematous changes and PFT suggestive of asthma COPD overlap syndrome. PFT revealed mild obstructive ventilatory defect with bronchodilator response present in small to medium airways only. Slightly increased lung volumes suggestive of air trapping and higher limit of normal DLCO. Will send in Breo. Discussed importance of good oral hygiene to prevent thrush. Offered RAST testing but patient's mild at this time. All questions were answered and patient is in agreement of plan. Will follow up in 6-8 weeks or sooner if needed. Medications: New fluticasone furoate-vilanterol 100-25 mcg/dose (Breo Ellipta) 1 inh inhalation DAILY 60 ea 3RF Coding Level of Care Code New Pt Level 4 (23742) Diagnoses Asthma-COPD overlap syndrome J44.89 Emphysema of lung J43.9
[2024-12-16 15:27] VITALS: BP 110/68; PULSE 60; O2SAT 97; BMI 18.3
== END 2024-12-16 16:06 | disposition home or self-care (01) ==
LOC: HO.HPSW 15:22
PROVIDERS: PCP Nurse Practitioner Family; Referring Provider Nurse Practitioner Family; Visit Provider Nurse Practitioner Family
DX: J44.89 Other specified chronic obstructive pulmonary disease (principal); J43.9 Emphysema, unspecified
CPT/HCPCS: 99204

== ENCOUNTER 2024-12-22 07:38 | Outpatient (REF) | payer BC, SELFPAY | END 2024-12-22 07:39 | disposition home or self-care (01) | LOC: HO.MAMMO 07:38 | PROVIDERS: PCP Nurse Practitioner Family; Visit Provider Nurse Practitioner Family | DX: Z12.31 Encounter for screening mammogram for malignant neoplasm of breast (principal) | CPT/HCPCS: 77063; 77067 ==

== ENCOUNTER → 2024-12-22 07:45 | Outpatient (BNV) | payer BC, SELFPAY | PROVIDERS: PCP Nurse Practitioner Family; Visit Provider Internal Medicine | DX: Z12.31 Encounter for screening mammogram for malignant neoplasm of breast (principal) | CPT/HCPCS: 77063; 77067 ==

== ENCOUNTER 2024-12-23 07:03 | Outpatient (RCR) | payer BC, SELFPAY ==
--- NOTE | 2024-12-23 07:57 | MHC.PT.DC ---
[facility] Office [place] Office [place] Office [address] Ozzie Mohr [address] [phone] F: [phone] F: [phone] F: [phone] F: [phone] Physical Therapy Discharge Report Diagnosis: ANTERIOR RIB PAIN (KP) Date of Surgery: Date of Evaluation: 11/11/24 Date of Discharge: 12/23/24 Treatments to Date: 7 Cancellations to Date: 0 No Shows to Date: 0 Discharge Status: Achieved Goals Improved Function Independent with HEP Recommend MD Follow-up Discharge Summary: ALTHOUGH MARGY'S SXS HAVE NOT RESOLVED, SHE MET HER GOALS OF INDEP W PROGRESSIVE HEP, IMPROVED POSTURAL AWARENESS AND BODY MECH W ADLs/ WORK TASKS, AND MORE EFFICIENT ACTIV OF POST RC/ SCAPULAR MM. AT HER LAST SESSION, WE REVIEWED THER EXER TO ADDRESS A TOS TYPE SYNDROME FOR THE Pt TO TRIAL AND MONITOR INFLUENCE ON HER SXS. SHE MET HER GOALS TO MAX POTENTIAL AT THIS TIME AND IS D/C FROM PT. Electronically signed by: BRUCE MAE,PT Please sign and return to therapist. Thank you for your referral.
== END 2024-12-23 07:57 | disposition home or self-care (01) ==
LOC: HO.PT 07:03
PROVIDERS: PCP Nurse Practitioner Family; Visit Provider Physical Medicine & Rehabilitation
DX: M47.812 Spondylosis without myelopathy or radiculopathy, cervical region (principal); M79.2 Neuralgia and neuritis, unspecified
CPT/HCPCS: 97110; 97140; 97162

== ENCOUNTER 2024-12-30 11:50 | Outpatient (AMB) | payer BC, SELFPAY ==
--- NOTE | 2024-12-30 11:52 | MHC.OFFVIS ---
Vital Signs 12/30/24 11:53 Height 5 ft 9 in Weight 124 lb BMI 18.3 Intake Visit Reasons: OV-f/u Right arm pain, Neuralgia and neuritis Intake Note: Beverly is a 63 year old female who presents today for a follow up of her right arm pain neuralgia and neuritis. At her last visit she was referred for physical therapy and it was recommended that she see a care specialist to rule out cardiac involvement. She has followed up with them and they are performing a stress test, echocardiogram and repeat holter monitor. Currently states nothing has changed since last visit. She continues to have pain. Allergies No Known Allergies [No Known Allergies*] Allergy (Verified 12/30/24 11:57) Medication List - Last Reconciled 12/30/24 by Radha Guerra MD budesonide-formoterol 80-4.5 mcg/actuation (Symbicort) 2 puffs inhalation Q12H calcium carbonate 600 mg PO BID fluticasone furoate-vilanterol 100-25 mcg/dose (Breo Ellipta) 1 inh inhalation DAILY HPI Comments Details: States pain started in her right arm pit in late May, she thought it was a irritation to her deodorant. Later was seen at urgent care who sent pt to have a U/S and Mammogram and results were negative for any tumors. Currently states her pain is random and travels across her breast and to the sides of her breast. Ordered thoracic MRI but denied by insurance, however PCP will be having a peer to peer to have it approved. Patient is claustrophobic. Denies inciting injuries and past cervical/thoracic/lumbar issues in the past. No neck pain. Random episodes now of soreness on both armpits, right worse. Denies burning or tingling or numbness. No skin irritation or hypersensitivity. Would get on anterior chest. She was tingling on fingertips, especially on right 5th digit, last episode was 2 months ago. No weakness. She continues to have intermittent episodes of pain under armpits or anterior chest, alternates left than right. On a couple episode she had noted index fingers to extend spontaneously. And she had also noticed 1 episode of numbness on right 5th digit. Otherwise no new atrophy, weight loss, falls, injuries, change of gait, change in bladder or bowel. [facility] Medical History Abdominal pain, right lower quadrant Dense breast tissue on mammogram Surgical History Hx of colonoscopy (~2013) Family History (Updated 11/23/24 @ 08:41 by Jean Elizabeth MD) Mother Breast cancer Maternal Aunt Lung cancer Breast cancer Father CHF (congestive heart failure) Brother H/O cardiac radiofrequency ablation Social History Household Members: Spouse Housing: House Alcohol intake: current Alcohol intake frequency: holidays/special occasions only Patient Tobacco Use Status: Never used Tobacco e-Cigarette/Vaping Use: Never Used service: No Current occupational status: employed 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 Patient was appropriately conversant and oriented. Good historian. MSK: Inspection reveals appropriate head and neck positioning. No pain with palpation over the neck musculature. No pain on cervical or thoracic spinous processes or facets or paraspinals. No tenderness over sternum, clavicle, costochondral junctions, xiphoid or intercostal areas. Cervical ROM was full. Spurling's sign negative. No scapular winging. No tenderness over pectoralis muscles. No atrophy seen. Bilateral shoulder, elbow and wrist ROM WNL. No ligamentous laxity or crepitance. No increased effusion. No specific abnormalities or instability found on inspection and palpation of the spine and extremities. Strength is 5/5 in all muscle groups tested. No increased tone noted. Neurological: Neurologic examination of the upper and lower extremities was nonfocal with intact sensation, muscle stretch reflexes and without focal motor deficits . Cam?s negative bilaterally. Gait is non-antalgic without loss of balance. Results Reviewed Results Reviewed: Ordering Physician: Jerel Echols Date of Service: 10/30/24 Procedure(s): MR thoracic spine wo con Accession Number(s): [id number] cc: Jerel Echols~ CLINICAL HISTORY: M54.6 - Pain in thoracic spine MR thoracic spine without gadolinium Comparison: None Findings: No scoliosis or spondylolisthesis. No acute fracture or pathologic bone lesion. Unremarkable thoracic cord. Small hemangioma suggested within T7 No significant degenerative change. No stenoses. Paraspinous musculature intact. IMPRESSION: No acute findings. No suspicious lesion. No fracture or malalignment. No central canal stenosis or significant neural foraminal narrowing identified. This document has been electronically signed by: Robe Christianson MD on 10/31/2024 13:12:[address]: OSSEOUS STRUCTURES: No suspicious lytic or blastic bone lesions. Mild spinal degenerative changes. Ordering Physician: Jerel Echols Date of Service: 08/17/24 Procedure(s): XR cervical spine 2V Accession Number(s): [id number] cc: Jerel Echols~ EXAMINATION: XR CERVICAL SPINE ; XR THORACIC SPINE CLINICAL INFORMATION: Pain in unspecified upper arm M79.629. COMPARISON: None TECHNIQUE: 2 images of cervical spine and 2 images of thoracic spine. FINDINGS: There is normal thoracic kyphosis. The vertebral heights, alignment and disc heights are preserved. No visible acute fracture, dislocation or subluxation seen. There is minimal dextroscoliosis of the mid dorsal level. The paravertebral soft tissues are normal. XR/XR cervical spine 2V IMPRESSION: Minimal dextroscoliosis mid dorsal spine. No visible acute fracture, dislocation or lytic process seen. Electronically signed by: Sreedhar Jackson MD 08/25/2024 01:13 PM [facility] Assessment & Plan Assessment & Plan (1) Anterior chest wall pain: Code(s): R07.89 - Other chest pain Category: Medical Plan Anterior chest wall pain, etiology? No specific tenderness to suggest costochondritis or intercostal neuralgia. No allodynia or skin changes to suggest CRPS. No neurologic or exam findings to suggest cervical or thoracic radiculopathy. Thoracic MRI does not show any objective findings that is worrisome. Cervical x-ray read as unremarkable but maybe there is some disc space narrowing between C4-5 and C5-6. However, that would not necessarily refer to anterior chest. She has already following with cardiology and pulmonary. Previous thyroid and breast studies unremarkable. Just to be sure were not missing anything from the cervical spine that could refer anteriorly, we will get a cervical MRI. Suggested referral to pain management for consideration of local injections under ultrasound for costochondral junction or intercostal areas. We will also do an EMG. I have low suspicion that this is cervical radiculopathy or brachial plexopathy, but we will do the test to be sure. Assessment and plan discussed with patient, and patient was agreeable. All questions were answered thoroughly. Radha Guerra MD, KELLY Board Certified, [place] [employer] and Rehabilitation (ABPMR) Board Certified, [place] [employer] Electrodiagnostic Medicine (ABEM) Orders: Orders NE electromyogram (EMG) Today R20.0 - Anesthesia of skin NE nerve conduction velocity Today R20.0 - Anesthesia of skin Referrals Pain Management Referral R07.89 - Other chest pain Coding Level of Care Code Est Pt Level 4 (45735) Diagnoses Anterior chest wall pain R07.89
[2024-12-30 11:53] VITALS: BMI 18.3
== END 2024-12-30 12:21 | disposition home or self-care (01) ==
LOC: HO.HOS 11:51
PROVIDERS: PCP Nurse Practitioner Family; Visit Provider Physical Medicine & Rehabilitation
DX: R07.89 Other chest pain (principal)
CPT/HCPCS: 99214

== ENCOUNTER → 2025-01-04 08:21 | Outpatient (REF) | payer BC, SELFPAY ==
--- NOTE | 2025-01-04 08:27 | CA_ITS ---
Acquisition Time: 2025-01-04 08:45:24 Total Exercise Time: 00:09:35 Test Indications: SOB, PREOP,PALPITATIONS Medications: SEE H&P Protocol: ROSITA Max HR: 157 BPM 99% of Pred: 158 BPM Max BP: 134/68 mmHG Max Work Load: 11.0 METS Exercise stress test with exercise 9 mins 35 secs of Rosita Protocol, achieving 99% MPHR, with reports of feeling tired otherwise denies any anginal symptoms, with isolated PACs and PVCs, with normotensive response to exercise. Without EKG changes meeting criteria for ischemia. In recovery, pt feeling back to baseline. Echo images obtained by tech at rest and post peak exercise. Definity contrast utilized. Test reviewed with Dr. Elizabeth. Referred By: Jean Elizabeth Electronically Signed By: Nicholas Bone
== END ==
LOC: HO.CARD 08:21
PROVIDERS: PCP Nurse Practitioner Family; Visit Provider Internal Medicine
DX: R07.2 Precordial pain (principal); R06.02 Shortness of breath; R00.2 Palpitations
CPT/HCPCS: 93242; 93350; Q9957

== ENCOUNTER → 2025-01-04 08:27 | Outpatient (BNV) | payer BC, SELFPAY | PROVIDERS: PCP Nurse Practitioner Family | DX: R94.31 Abnormal electrocardiogram [ECG] [EKG] (principal); I49.1 Atrial premature depolarization; I49.3 Ventricular premature depolarization | CPT/HCPCS: 93016; 93018; 93350; 93352 ==

== ENCOUNTER 2025-01-05 10:12 | Outpatient (REF) | payer BC, SELFPAY ==
[2025-01-05 13:11] LABS: MANUAL DIFF FLAG NO
[2025-01-05 13:25] LABS: Basophils Percent Auto 0.8 % (0-2); Eosinophils Absolute Auto 0.1 X10*3/uL (0.0-0.4); Eosinophils Percent Auto 2.3 % (0-4); Hematocrit 39.3 % (37.0-47.0); Hemoglobin 13.2 g/dl (12.0-16.0); Imm Gran Abs Auto 0.01 X10*3/uL (0.00-0.03); Imm Gran Pct Auto 0.2 % (0.0-0.4); Lymphocytes Percent Auto 20.3 % (20-40); Mean Corpuscular HGB Conc 33.6 g/dl (31.0-35.0); Mean Corpuscular Hemoglobin 30.2 pg (27.0-33.0); Mean Corpuscular Volume 89.9 fL (80.0-98.0); Mean Platelet Volume 9.9 fL (9.4-12.3); Monocytes Absolute Auto 0.4 X10*3/uL (0.1-1.2); Monocytes Percent Auto 7.2 % (2-11); Neutrophils Absolute Auto 3.4 x10*3/uL (2.0-8.3); Neutrophils Percent Auto 69.2 % (45-73); Platelet Count 225 X10*3/uL (160-400); Red Blood Count 4.37 X10*6/uL (4.20-5.50); Red Cell Distribution Width 12.6 % (11.0-16.0); White Blood Count 4.9 X10*3/uL (4.8-10.8)
[2025-01-05 13:54] LABS: Alanine Aminotransferase 40 U/L (0-31); Albumin Level 4.4 g/dL (3.5-5.0); Alkaline Phosphatase 56 U/L (39-117); Anion Gap 15 (12-20); Aspartate Amino Transferase 39 U/L (5-31); Bilirubin Total 0.5 mg/dL (0.0-1.0); Blood Urea Nitrogen 12 mg/dL (9-16); Calcium 9.8 mg/dL (8.4-10.2); Carbon Dioxide 25 mmol/L (22-29); Chloride 102 mmol/L (96-108); Estimated Glomerular Filt Rate > 60; Glucose Random 88 mg/dL (60-115); Iron 69 mcg/dL (30-160); Percent Iron Saturation 28 % (15-50); Potassium 4.3 mmol/L (3.3-5.1); Sodium 138 mmol/L (135-145); Total Iron Binding Capacity 248 mcg/dL (228-428); Total Protein 7.2 g/dL (6.5-8.0); Unsaturated Iron Binding 179 ug/dL
[2025-01-05 13:57] LABS: Ferritin 121 ng/mL (10-250)
== END 2025-01-05 10:13 | disposition home or self-care (01) ==
LOC: HO.HMGCLDS 10:12
PROVIDERS: PCP Nurse Practitioner Family; Visit Provider Nurse Practitioner Family
DX: G25.81 Restless legs syndrome (principal)
CPT/HCPCS: 36415; 80053; 82728; 83540; 85025

== ENCOUNTER 2025-01-24 08:57 | Outpatient (REF) | payer BC, SELFPAY ==
[2025-01-24 10:07] LABS: MANUAL DIFF FLAG NO
[2025-01-24 10:15] LABS: Basophils Percent Auto 0.9 % (0-2); Eosinophils Absolute Auto 0.1 X10*3/uL (0.0-0.4); Eosinophils Percent Auto 1.6 % (0-4); Hematocrit 40.1 % (37.0-47.0); Hemoglobin 13.1 g/dl (12.0-16.0); Imm Gran Abs Auto 0.01 X10*3/uL (0.00-0.03); Imm Gran Pct Auto 0.2 % (0.0-0.4); Lymphocytes Absolute Auto 0.9 X10*3/uL (1.2-4.9); Lymphocytes Percent Auto 20.9 % (20-40); Mean Corpuscular HGB Conc 32.7 g/dl (31.0-35.0); Mean Corpuscular Hemoglobin 30.1 pg (27.0-33.0); Mean Corpuscular Volume 92.2 fL (80.0-98.0); Mean Platelet Volume 9.5 fL (9.4-12.3); Monocytes Absolute Auto 0.3 X10*3/uL (0.1-1.2); Monocytes Percent Auto 7.6 % (2-11); Neutrophils Absolute Auto 3.1 x10*3/uL (2.0-8.3); Neutrophils Percent Auto 68.8 % (45-73); Platelet Count 237 X10*3/uL (160-400); Red Blood Count 4.35 X10*6/uL (4.20-5.50); Red Cell Distribution Width 12.9 % (11.0-16.0); White Blood Count 4.5 X10*3/uL (4.8-10.8)
[2025-01-24 10:49] LABS: Rheumatoid Factor < 13.0 IU/mL (<15.0)
[2025-01-24 10:59] LABS: Erythrocyte Sedimentation Rate 4 MM/HR (0-20)
[2025-01-24 11:08] LABS: Alanine Aminotransferase 23 U/L (0-31); Albumin Level 4.6 g/dL (3.5-5.0); Alkaline Phosphatase 54 U/L (39-117); Anion Gap 11 (12-20); Aspartate Amino Transferase 35 U/L (5-31); Blood Urea Nitrogen 11 mg/dL (9-16); C Reactive Protein < 0.10 mg/dL (< or = 0.50); Calcium 9.3 mg/dL (8.4-10.2); Carbon Dioxide 27 mmol/L (22-29); Chloride 106 mmol/L (96-108); Estimated Glomerular Filt Rate > 60; Glucose Random 70 mg/dL (60-115); Potassium 3.7 mmol/L (3.3-5.1); Sodium 140 mmol/L (135-145); Total Protein 7.1 g/dL (6.5-8.0)
[2025-01-25 21:32] LABS: Antibody to SS-A Antigen <1.0 NEG AI (<1.0 NEG); Antibody to SS-B Antigen <1.0 NEG AI (<1.0 NEG)
[2025-01-26 11:19] LABS: Cyclic Citrullinated Peptide <16 UNITS
[2025-01-26 11:34] LABS: Anti Nuclear Antibody Screen NEGATIVE (NEGATIVE)
[2025-01-26 12:44] LABS: Complement C3 100 mg/dL (83-193)
== END 2025-01-24 08:58 | disposition home or self-care (01) ==
LOC: HO.HMGCLDS 08:57
PROVIDERS: PCP Nurse Practitioner Family; Visit Provider Nurse Practitioner Family
DX: R52 Pain, unspecified (principal)
CPT/HCPCS: 36415; 80053; 85025; 85652; 86038; 86140; 86160; 86200; 86235; 86431

== ENCOUNTER 2025-01-27 15:33 | Outpatient (AMB) | payer BC, SELFPAY ==
--- NOTE | 2025-01-27 15:35 | A.OFFVIS_ITS ---
Vital Signs 01/27/25 15:36 Height 5 ft 9 in Weight 124 lb BMI 18.3 BP 118/64 Blood Pressure Location Lt brachial Position Sitting Pulse 67 Pulse Source Pulse Oximeter Pulse Oximetry (%) 100 Oxygen Delivery Method Room Air Intake Visit Reasons: Emphysema Trolley Coach Driver Required: No Materials Development Engineer: Materials Development Engineer offered & declined Accompanied by: Self / Same As Patient Allergies No Known Allergies [No Known Allergies*] Allergy (Verified 01/30/25 07:36) Medication List - Last Reconciled 01/27/25 by Opal Mock LPN budesonide-formoterol 80-4.5 mcg/actuation (Symbicort) 2 puffs inhalation Q12H calcium carbonate 600 mg PO BID ropinirole 0.25 mg PO BEDTIME 30 days HPI HPI Emphysema: Details: Beverly is a pleasant 64 year old female, never smoker, with underlying asthma COPD overlap syndrome. At the last visit, she reported engaging in an active lifestyle however inability to sustain a fast pace, difficult to say if respiratory symptoms limit her exercise tolerance. She was started on Symbicort and reports no change in symptoms. She currently denies any respiratory symptoms. She denies any visits to urgent care or hospitalizations related to respiratory distress since the last visit. [facility] Medical History Fatty liver Abdominal pain, right lower quadrant Dense breast tissue on mammogram Surgical History Hx of colonoscopy (~2013) Family History Mother Breast cancer Maternal Aunt Lung cancer Breast cancer Father CHF (congestive heart failure) Brother H/O cardiac radiofrequency ablation Social History Household Members: Spouse Housing: House Alcohol intake: current Alcohol intake frequency: holidays/special occasions only Patient Tobacco Use Status: Never used Tobacco e-Cigarette/Vaping Use: Never Used service: No Current occupational status: employed 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 Current occupational exposures/hazards: No Cognitive needs: No Hearing needs: No Vision needs: Yes Review of Systems Const Denies chills, Denies excessive sweating, Denies fever(s), Denies headache(s) and Denies night sweats Eyes Denies dry eyes, Denies irritation and Denies itchy eyes ENT Reports Normal hearing present, Denies headache(s), Denies nasal congestion, Denies nasal discharge, Denies post nasal drip and Denies sore throat Card Denies chest pain, Denies chest pain at rest, Denies chest pain with activity, Denies claudication, Denies leg edema, Denies dyspnea, Denies dyspnea on exertion, Denies orthopnea and Denies paroxysmal nocturnal dyspnea Resp Denies chest congestion, Denies cough, Denies excessive phlegm production, Denies pain on inspiration, Denies pain with cough, Denies dyspnea, Denies dyspnea on exertion, Denies stridor and Denies wheezing Musc Denies myalgias Neuro Reports Normal hearing present and Denies headache(s) Endo Denies excessive sweating Rufino/Lymph Denies lymphadenopathy Aller/Immun Denies itchy eyes, Denies seasonal rhinorrhea and Denies wheezing Physical Exam Vital Signs: Last Vital Signs Pulse 67 01/27/25 15:36 BP 118/64 01/27/25 15:36 Pulse Ox 100 01/27/25 15:36 Oxygen Delivery Method Room Air 01/27/25 15:36 BMI result Body Mass Index 18.3 Const General: cooperative, healthy appearing, comfortable, no acute distress, well developed and alert Orientation/consciousness: patient oriented x3 Limitations: no limitations HEENT Head: Yes normal to inspection, Yes normocephalic and Yes atraumatic Ears: hearing grossly normal bilaterally and external ears normal Eyes General: appearance normal, both eyes and all related structures Eyelids: Yes eyelids normal Sclerae: sclerae normal EOM: EOMs intact bilaterally Neck Neck: Yes normal visual inspection and Yes no lymphadenopathy Lymphatic: no lymphadenopathy noted Chest Chest palpation & inspection: normal inspection of the chest Resp Effort & Inspection: normal respiratory effort, able to speak in complete sentences, no audible wheezes, no cough, no stridor, not tachypneic, no tripod positioning and no use of accessory muscles Auscultation: clear to auscultation bilaterally Cardio Jugular venous distension: no JVD Rate: regular rate Rhythm: regular rhythm Skin Other: warm, dry General skin exam: no rashes or lesions noted Neuro General: patient oriented x3 Cranial nerves: Yes Normal hearing present Cognition (Neuro): normal cognition Gait exam (Neuro): Normal gait present Extrem General: Yes normal to inspection, Yes capillary refill normal, Yes no clubbing, cyanosis or edema and Yes no pedal edema Psych Appearance: grossly normal and well kempt Speech and movement: Normal speech and movement present and Clear speech present Affect: normal affect Attitude: cooperative Thought process: Normal thought process present Thought content: Normal thought content present Insight: Good insight present (Psych) Judgement: Good judgement present (Psych) Assessment & Plan Assessment & Plan (1) Asthma-COPD overlap syndrome: Code(s): J44.89 - Other specified chronic obstructive pulmonary disease Category: Medical (2) Emphysema of lung: Code(s): J43.9 - Emphysema, unspecified Category: Medical Plan At this time, patient reports respiratory symptoms have been unchanged since initiating Symbicort and will discontinue. She is aware if more noticeable symptoms present after discontinuing to restart. All questions were answered and patient is in agreement of plan. Will follow up in 6 months or sooner if needed. Coding Level of Care Code Est Pt Level 3 (83817) Diagnoses Asthma-COPD overlap syndrome J44.89 Emphysema of lung J43.9
[2025-01-27 15:36] VITALS: BP 118/64; PULSE 67; O2SAT 100; BMI 18.3
== END 2025-01-27 15:51 | disposition home or self-care (01) ==
LOC: HO.HPSW 15:34
PROVIDERS: PCP Nurse Practitioner Family; Visit Provider Nurse Practitioner Family
DX: J44.89 Other specified chronic obstructive pulmonary disease (principal); J43.9 Emphysema, unspecified
CPT/HCPCS: 99213

== ENCOUNTER → 2025-01-29 07:52 | Outpatient (BNV) | payer BC, SELFPAY | PROVIDERS: PCP Nurse Practitioner Family; Visit Provider Radiology Diagnostic Radiology | DX: M50.322 Other cervical disc degeneration at C5-C6 level (principal); M48.02 Spinal stenosis, cervical region | CPT/HCPCS: 72141 ==

== ENCOUNTER 2025-01-29 08:07 | Outpatient (REF) | payer BC, SELFPAY ==
--- NOTE | ~2025-01-29 | MR_ITS ---
EXAMINATION: MR CERVICAL SPINE WITHOUT CONTRAST CLINICAL INFORMATION: Radiculopathy. COMPARISON: None available. TECHNIQUE: MRI of the cervical spine was obtained using routine sequences without contrast. FINDINGS: There is maintained cervical lordosis. The vertebral heights and alignment is normal. There is loss of C4-5, C5-6 disc heights. Rest of the disc heights are maintained normal. The C2-3 disc level appears unremarkable. At C3-4 disc level there is mild posterior spondylosis/bulge complex mid enema may be canal narrowing. There is severe right and moderate left neural from narrowing from uncovertebral and facet joint arthropathy and hypertrophy. At C4-5 disc level there is mild AP canal stenosis from combination from cervical spondylosis/bulge complex resulting in mild to moderate AP canal stenosis. There is severe left and mild right neural foraminal narrowing from uncovertebral hypertrophic changes. At C5-6 disc level there is diffuse broad-based osteophyte/bulge complex resulting in moderate AP canal stenosis, flattening the cord and complete effacement of ventral and posterior thecal sac. There is severe bilateral neural foramina narrowing from moderate uncovertebral hypertrophic changes. At C6-7 disc level there is no significant disc bulge, herniation or spinal canal stenosis. The neural foramina patent bilaterally. The bone marrow signal is normal. The cord caliber is narrowed at C4-5 and C3-4 disc levels but no signal abnormality seen in the cord. At C7-T1 disc level there is no signal disc bulge, herniation or spinal canal stenosis. The neural foramina are patent bilaterally. The cervical-min junction appears normal. The bone marrow signal is preserved. The paravertebral soft tissues are normal. MR/MR cervical spine wo con IMPRESSION: Multilevel degenerative disc bulges/osteophyte complex extending from C3-4 to C5-6 disc levels . There is flattening of the cord as well most prominent at the C5-6 disc level. There is moderate AP canal stenosis C4-5, C5-6 disc level worse at the C5-6 disc level. There is bilateral narrowing of neural foramina worse on the right at the C5-6 disc level Electronically signed by: Sreedhar Jackson MD 01/31/2025 08:50 AM EDT
== END 2025-01-29 08:08 | disposition home or self-care (01) ==
LOC: HO.MRI 08:07
PROVIDERS: PCP Nurse Practitioner Family; Visit Provider Physical Medicine & Rehabilitation
DX: M54.12 Radiculopathy, cervical region (principal); R07.89 Other chest pain
CPT/HCPCS: 72141

== ENCOUNTER 2025-01-30 08:06 | Outpatient (AMB) | payer BC, SELFPAY ==
--- NOTE | 2025-01-30 07:36 | MHC.PC.OV ---
Intake Visit Reasons: Discuss pain in fingers Allergies No Known Allergies [No Known Allergies*] Allergy (Verified 01/30/25 07:36) Medication List - Last Reconciled 01/30/25 by Jerel Echols [facility] budesonide-formoterol 80-4.5 mcg/actuation (Symbicort) 2 puffs inhalation Q12H calcium carbonate 600 mg PO BID ropinirole 0.5 mg PO BEDTIME 30 days Tobacco use date assessed: 05/17/24 Dental Screening Dental Screen Date: 05/17/24 HPI Discuss pain in fingers HPI Details History of Present Illness The patient is a 64-year-old female presenting with restless legs syndrome and stiffness in her bilateral index fingers. She has been experiencing increased restlessness in her legs, which did not improve with a low dose of 0.25 mg ropinirole. Her laboratory results, including ferritin and iron levels, are within normal limits. Furthermore, the patient reports stiffness in her bilateral index fingers, noting restricted movement or flexion that happens randomly. There are no associated neurological symptoms such as blurred vision, leg drop, numbness, tingling, severe neuropathies, or weakness. Additionally, she denies systemic symptoms such as fever, chills, nausea, vomiting, drooping, drooling, or shuffling gait. Review of Systems - Musculoskeletal: Reports stiffness in bilateral index fingers. - Neurological: Reports increased restless legs syndrome; denies blurred vision, leg drop, numbness, tingling, severe neuropathies, weakness in extremities. - General: Denies fever, chills. - gastrointestinal: Denies nausea, vomiting. - Other: Denies drooping, drooling, shuffling gait. Plan 1. 5 mg for her restless legs syndrome, monitoring her response to the adjusted dosage. As her iron and ferritin levels are within normal limits, they do not suggest an underlying iron deficiency. An X-ray will be obtained to investigate the stiffness in her bilateral index fingers, along with inflammatory markers to explore other potential causes. The outcome of a cervical spine MRI will be reviewed once available to detect any possible neural involvement. Collaboration with a retail merchandiser will be maintained as needed. The patient is informed and will report any changes in her symptoms.: Patient was informed and verbally consented to the use of an ambient scribe for clinic note documentation during this visit. Discussion Notes During the consultation, I discussed with the patient the plan to increase her ropinirole dosage to 0.5 mg, explaining the potential benefits and the need for monitoring her response to the new dosage. We reviewed the normal results of her ferritin and iron levels, indicating no iron deficiency. I outlined the need for an X-ray and inflammatory markers to further investigate the stiffness in her bilateral index fingers, and the rationale for awaiting the cervical spine MRI results was explained to assess any cervical radiculopathy. Cooperation with a retail merchandiser was highlighted for its role in her comprehensive care. The patient understands the management plan and will provide feedback on her progress. Patient Instructions - Increase your ropinirole dose to 0.5 mg as discussed. - Monitor your symptoms and let me know if there are any changes. - Expect to get X-rays and inflammatory markers done soon. - We will review the results once they are available. - Keep track of any new or worsening symptoms and report them. - Follow up with the retail merchandiser as scheduled. - Reach out immediately if you experience any unusual symptoms or concerns. [facility] Medical History Fatty liver Abdominal pain, right lower quadrant Dense breast tissue on mammogram Surgical History Hx of colonoscopy (~2013) Family History Mother Breast cancer Maternal Aunt Lung cancer Breast cancer Father CHF (congestive heart failure) Brother H/O cardiac radiofrequency ablation Social History Household Members: Spouse Housing: House Alcohol intake: current Alcohol intake frequency: holidays/special occasions only Patient Tobacco Use Status: Never used Tobacco e-Cigarette/Vaping Use: Never Used service: No Current occupational status: employed 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 Manuel L. SrinathMargoth hopkins, Dao Escobar and colleagues, with an educational mary from [employer]. Physical exam (Primary Care) Tobacco/Smoking Status: Tobacco use Status Tobacco use date assessed 05/17/24 11/22/24 07:57 Patient Tobacco Use Status Never used Tobacco 12/16/24 15:32 e-Cigarette/Vaping Use Never Used 12/16/24 15:32 Thrive Assessment: Date of Thrive Assessment Date Thrive assessed 10/13/24 11/22/24 07:57 Coding Level of Care Code Tele Est Pt Level 3 (52529) Diagnoses Pain of hand and fingers M79.643; M79.646 Restless legs G25.81 Assessment & Plan Assessment & Plan (1) Pain of hand and fingers: Code(s): M79.643 - Pain in unspecified hand; M79.646 - Pain in unspecified finger(s) Category: Medical (2) Restless legs: Code(s): G25.81 - Restless legs syndrome Category: Medical Plan . Orders: Orders Cyclic Citrullinated Peptide Today M79.643 - Pain in unspecified hand, M79.646 - Pain in unspecified finger(s) Erythrocyte Sedimentation Rate Today M79.643 - Pain in unspecified hand, M79.646 - Pain in unspecified finger(s) C Reactive Protein Today M79.643 - Pain in unspecified hand, M79.646 - Pain in unspecified finger(s) Complete Blood Count Auto Diff Today M79.643 - Pain in unspecified hand, M79.646 - Pain in unspecified finger(s) XR Hand Josh 2V Today M79.643 - Pain in unspecified hand, M79.646 - Pain in unspecified finger(s) Comprehensive Met. Panel Today M79.643 - Pain in unspecified hand, M79.646 - Pain in unspecified finger(s) Medications: Changed From ropinirole administer 1-3 hours before bedtime 0.25 mg PO BEDTIME 30 days 30 tabs 1RF To ropinirole administer 1-3 hours before bedtime 0.5 mg PO BEDTIME 30 days 30 tabs 1RF
== END 2025-01-30 08:07 | disposition home or self-care (01) ==
LOC: HO.HMCC 08:06
PROVIDERS: PCP Nurse Practitioner Family; Visit Provider Nurse Practitioner Family
DX: M79.641 Pain in right hand (principal); M79.642 Pain in left hand; G25.81 Restless legs syndrome

== ENCOUNTER 2025-01-30 08:06 | Outpatient (REF) | payer BC, SELFPAY ==
--- NOTE | ~2025-01-30 | XR_ITS ---
Examination: Three-view x-ray, bilateral hand x-rays TECHNIQUE: AP, oblique, lateral views bilateral hands INDICATION: hand pain Prior: September 15, 2016, left hand FINDINGS: LEFT HAND: Joint spaces are preserved. No soft tissue swelling is evident. No erosions are identified. No soft tissue calcifications are visible. There is no joint diastases or malalignment. Small marginal osteophyte are evident involving the DIP joint of the third digit and PIP joint of the second digit. Stable. RIGHT HAND: Joint spaces are preserved. No soft tissue swelling is evident. Chronic punctate calcification is present adjacent to the tip of the ulnar styloid. No erosions are identified. No joint space or malalignment is evident. No fractures are evident. XR/XR Hand Bilat min 3v IMPRESSION: Left hand: There are mild changes consistent with osteoporosis involving the DIP joint of the third digit and PIP joint of the second digit. Right hand: Unremarkable. Electronically signed by: Zaid Singleton MD 01/30/2025 12:55 PM EDT
[2025-01-30 13:08] LABS: MANUAL DIFF FLAG NO
[2025-01-30 13:17] LABS: Basophils Absolute Auto 0.1 X10*3/uL (0.0-0.2); Basophils Percent Auto 1.1 % (0-2); Eosinophils Absolute Auto 0.1 X10*3/uL (0.0-0.4); Eosinophils Percent Auto 1.7 % (0-4); Hematocrit 42.7 % (37.0-47.0); Hemoglobin 13.8 g/dl (12.0-16.0); Imm Gran Abs Auto 0.01 X10*3/uL (0.00-0.03); Imm Gran Pct Auto 0.2 % (0.0-0.4); Lymphocytes Percent Auto 20.5 % (20-40); Mean Corpuscular HGB Conc 32.3 g/dl (31.0-35.0); Mean Corpuscular Hemoglobin 29.9 pg (27.0-33.0); Mean Corpuscular Volume 92.4 fL (80.0-98.0); Mean Platelet Volume 9.9 fL (9.4-12.3); Monocytes Absolute Auto 0.3 X10*3/uL (0.1-1.2); Monocytes Percent Auto 7.3 % (2-11); Neutrophils Absolute Auto 3.2 x10*3/uL (2.0-8.3); Neutrophils Percent Auto 69.2 % (45-73); Platelet Count 246 X10*3/uL (160-400); Red Blood Count 4.62 X10*6/uL (4.20-5.50); Red Cell Distribution Width 12.9 % (11.0-16.0); White Blood Count 4.6 X10*3/uL (4.8-10.8)
[2025-01-30 13:33] LABS: Alanine Aminotransferase 26 U/L (0-31); Albumin Level 4.7 g/dL (3.5-5.0); Alkaline Phosphatase 63 U/L (39-117); Anion Gap 11 (12-20); Aspartate Amino Transferase 32 U/L (5-31); Bilirubin Total 0.7 mg/dL (0.0-1.0); Blood Urea Nitrogen 12 mg/dL (9-16); C Reactive Protein < 0.10 mg/dL (< or = 0.50); Calcium 9.9 mg/dL (8.4-10.2); Carbon Dioxide 30 mmol/L (22-29); Chloride 104 mmol/L (96-108); Estimated Glomerular Filt Rate > 60; Glucose Random 75 mg/dL (60-115); Sodium 141 mmol/L (135-145); Total Protein 7.2 g/dL (6.5-8.0)
[2025-01-30 14:01] LABS: Erythrocyte Sedimentation Rate 5 MM/HR (0-20)
[2025-02-02 09:58] LABS: Cyclic Citrullinated Peptide <16 UNITS
== END 2025-01-30 08:07 | disposition home or self-care (01) ==
LOC: HO.HMGCX 08:06
PROVIDERS: PCP Nurse Practitioner Family; Visit Provider Nurse Practitioner Family
DX: M79.643 Pain in unspecified hand (principal); M79.646 Pain in unspecified finger(s); M25.642 Stiffness of left hand, not elsewhere classified; M25.641 Stiffness of right hand, not elsewhere classified; G25.81 Restless legs syndrome
CPT/HCPCS: 36415; 73130; 80053; 85025; 85652; 86140; 86200

== ENCOUNTER → 2025-01-30 09:14 | Outpatient (BNV) | payer BC, SELFPAY | PROVIDERS: PCP Nurse Practitioner Family; Visit Provider Radiology Diagnostic Radiology | DX: M79.641 Pain in right hand (principal); M79.642 Pain in left hand | CPT/HCPCS: 73130 ==

== ENCOUNTER 2025-02-13 09:06 | Outpatient (AMB) | payer BC, SELFPAY ==
[2025-02-13 09:10] VITALS: BP 120/66; PULSE 78; BMI 17.9
--- NOTE | 2025-02-13 09:10 | A.OFFVIS_ITS ---
Vital Signs 02/13/25 09:10 Height 5 ft 9 in Weight 121 lb 4.068 oz BMI 17.9 BP 120/66 Blood Pressure Location Lt brachial Position Sitting Pulse 78 Pulse Source Pulse Oximeter Intake Visit Reasons: follow up/stress test/echo/holter Allergies No Known Allergies [No Known Allergies*] Allergy (Verified 01/30/25 07:36) Medication List - Last Reconciled 02/13/25 by Jean Elizabeth MD calcium carbonate 600 mg PO BID ropinirole 1 mg PO BEDTIME 30 days HPI Comments Details: Beverly returns for follow-up. In the past, she was seen regarding palpitations shortness of breath. She states that she is fairly active without any major limitations. She exercise on the treadmill, elliptical extra regularly. Sometimes, when she is exercising on the treadmill, she feels sensations of heart racing and she also feels short of breath and has to slow down. No clear-cut anginal-type symptoms. No previous cardiac history. Otherwise, no major comorbidities. Nonsmoker. Since last seen, she has completed an echocardiogram, stress test and Holter monitor. Otherwise, very active with no other concerns. 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 Current occupational exposures/hazards: No Cognitive needs: No Hearing needs: No Vision needs: Yes Review of Systems Const Denies weakness ENT Denies dizziness Card Denies chest pain, Denies chest pain with activity, Denies syncope, Denies rapid heart rate, Denies pedal edema, Denies edema, Denies leg edema, Denies lightheadedness, Denies palpitations, Denies dyspnea, Denies dyspnea on exertion and Denies orthopnea Resp Denies cough, Denies dyspnea and Denies dyspnea on exertion GI Denies hematochezia and Denies change in stool character Musc Denies abnormal gait, Denies muscle cramps, Denies muscle weakness, Denies nu mbness, Denies radiating pain into limb and Denies tingling Neuro Denies abnormal gait, Denies dizziness, Denies syncope, Denies numbness, Denies tingling and Denies weakness Endo Denies palpitations Physical Exam Vital Signs: Last Vital Signs Pulse 78 02/13/25 09:10 BP 120/66 02/13/25 09:10 BMI result Body Mass Index 17.9 Const General: comfortable and no acute distress Orientation/consciousness: patient oriented x3 HEENT Other: Unremarkable Head: Yes normal to inspection Neck Neck: Yes normal visual inspection Chest Chest palpation & inspection: normal inspection of the chest Resp Auscultation: clear to auscultation bilaterally Cardio Palpation: normal PMI Heart sounds: S1 normal heart sound present, S2 normal heart sound present, no gallops, no murmurs and no rubs GI Palpation (GI): Soft to palpation Back/Spine/Pelvis Other: unremarkable Skin General skin exam: no rashes or lesions noted Neuro General: patient oriented x3 Extrem General: Yes normal to inspection Psych Mental Status: mental status grossly normal Assessment & Plan Assessment & Plan (1) Palpitations: Code(s): R00.2 - Palpitations Category: Medical (2) SOB (shortness of breath): Code(s): R06.02 - Shortness of breath Category: Medical (3) Atrial tachycardia: Code(s): I47.19 - Other supraventricular tachycardia Category: Medical Plan Baseline EKGs unremarkable. In a prior 3 day Holter, underlying rhythm is sinus with rare supraventricular ectopy/short atrial runs. In that study, palpitations correlated with tachycardia episodes and sinus rhythm. In the repeat Holter monitor, underlying rhythm is sinus. One episode of narrow complex tachycardia at 180/Min for about 1.5min, possible SVT versus atrial tachycardia but not very clear. However, it happened when she was actually not exercising. In the echocardiogram, LVEF is 60-65%. No significant valvular findings. Exercise stress echocardiogram is unremarkable at 11 METS exercise capacity. Overall, possible atrial tachycardia during exercising but not definitive. We went over the strips in detail. We discussed about medications like beta- blockers but she is quite comfortable not to take anything at this time as the episodes are very infrequent and also very brief. We agreed on a small dose of as needed metoprolol for symptom relief. If anything concerning like prolonged episodes or associated with any other complaints like presyncope, advised her to seek medical attention immediately. Discussion Notes I discussed the patient's palpitations and management options included a low- dose PRN medication approach, confirming the risk-benefit profile. The patient was informed of potential signs warranting urgent medical care and considered procedural options like ablation if symptoms persist. Follow-up acute care through primary care services was discussed. The patient was advised to adapt exercise plans in response to symptoms and was briefed on the importance of listening to physical cues. Patient was informed and verbally consented to the use of an ambient scribe for clinic note documentation during this visit. Medications: New metoprolol tartrate 25 mg PO DAILY PRN 30 tabs 5RF palpitations Patient Instructions: - Take medication as needed for palpitations. - Monitor how often symptoms occur. - Slow down or stop exercise if heart racing occurs. - Call doctor if your symptoms are severe or for prolonged episodes. Coding Level of Care Code Est Pt Level 3 (47056) Diagnoses Palpitations R00.2 SOB (shortness of breath) R06.02 Atrial tachycardia I47.19
== END 2025-02-13 09:29 | disposition home or self-care (01) ==
LOC: HO.HCS 09:07
PROVIDERS: PCP Nurse Practitioner Family; Visit Provider Internal Medicine
DX: R00.2 Palpitations (principal); R06.02 Shortness of breath; I47.19 Other supraventricular tachycardia
CPT/HCPCS: 99213

== ENCOUNTER → 2025-02-13 09:06 | Outpatient (BNVA) | payer BC, SELFPAY | PROVIDERS: PCP Nurse Practitioner Family; Visit Provider Internal Medicine ==

== ENCOUNTER 2025-02-21 11:24 | Day surgery (SDC) | payer BC, SELFPAY ==
--- NOTE | 2025-02-20 12:48 | HO.ANESPROP2 ---
Documented by User: Vianney Vasquez NP 02/20/25 12:51 HPI - Anesthesia Eval Consult details Narrative: 64yo F for Colonoscopy Eval by [facility] cardiology 01/2025 for possible atrial tach. Symptoms while on treadmill. Exercises regularly. PRN beta cris and prn f/u only PMFSH Active Problems Active Problems: All Active Problems Cervical spinal stenosis (Acute) Osteoporosis (Acute) Pain of hand and fingers (Acute) Whole body pain (Acute) Restless legs (Acute) Arm numbness (Acute) Anterior chest wall pain (Acute) Emphysema of lung (Acute) Asthma-COPD overlap syndrome (Acute) Atrial tachycardia (Acute) SOB (shortness of breath) (Acute) Mild emphysema (Acute) Pre-op evaluation (Acute) Hyperinflation of lungs (Acute) Chest discomfort (Acute) Atelectasis of both lungs (Acute) Abdominal pain, right lower quadrant (Acute) Cervical spondylosis (Acute) Postmenopausal atrophy of urethra (Acute) Neuropathic pain of chest (Acute) Thoracic back pain (Acute) Cervical neck pain with evidence of disc disease (Acute) Axillary pain (Acute) Dense breast tissue on mammogram (Acute) Breast pain, right (Acute) Right forearm pain (Acute) Microscopic hematuria (Acute) Dyslipidemia (Acute) Leukopenia (Acute) Thyroid nodule (Acute) Palpitations (Acute) Screening for colon cancer (Acute) Postmenopausal (Acute) Physical exam (Acute) Past Medical History Medical History (Updated 02/08/25 @ 09:02 by Radha Guerra MD) Fatty liver Abdominal pain, right lower quadrant Dense breast tissue on mammogram Family History Family History Mother Breast cancer Maternal Aunt Lung cancer Breast cancer Father CHF (congestive heart failure) Brother H/O cardiac radiofrequency ablation Surgical History Surgical History (Updated 02/21/25 @ 11:45 by Lissette Hartman RN) Hx of dilation and curettage Hx of section H/O lumpectomy Hx of colonoscopy (~2013) Social History Social History Household Members: Spouse Housing: House Alcohol intake: current Alcohol intake frequency: does not drink Patient Tobacco Use Status: Never used Tobacco e-Cigarette/Vaping Use: Never Used Have you been hit, kicked, punched, or otherwise hurt by someone within the past year? 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 In a prior 3 day Holter, underlying rhythm is sinus with rare supraventricular ectopy/short atrial runs. In that study, palpitations correlated with tachycardia episodes and sinus rhythm. In the repeat Holter monitor, underlying rhythm is sinus. One episode of narrow complex tachycardia at 180/Min for about 1.5min, possible SVT versus atrial tachycardia but not very clear. However, it happened when she was actually not exercising. In the echocardiogram, LVEF is 60-65%. No significant valvular findings. Exercise stress echocardiogram is unremarkable at 11 METS exercise capacity. Assessment and Plan Assessment Anesthesia Assessment: Chart Reviewed Documented by User: Zelalem Boyd MD 02/21/25 13:01 [facility] Past Medical History Medical History (Updated 02/08/25 @ 09:02 by Radha Guerra MD) Fatty liver Abdominal pain, right lower quadrant Dense breast tissue on mammogram Family History Family History Mother Breast cancer Maternal Aunt Lung cancer Breast cancer Father CHF (congestive heart failure) Brother H/O cardiac radiofrequency ablation Family history of problems with anesthesia: No Surgical History Surgical History (Updated 02/21/25 @ 11:45 by Lissette Hartman RN) Hx of dilation and curettage Hx of section H/O lumpectomy Hx of colonoscopy (~2013) History of Problems with Anesthesia: No Social History Social History Household Members: Spouse Housing: House Alcohol intake: current Alcohol intake frequency: does not drink Patient Tobacco Use Status: Never used Tobacco e-Cigarette/Vaping Use: Never Used Have you been hit, kicked, punched, or otherwise hurt by someone within the past year? 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 Current occupational exposures/hazards: No Cognitive needs: No Hearing needs: No Vision needs: Yes Meds Allergies Allergy/AdvReac Type Severity Reaction Status Date / Time No Known Allergies (No Known Allergy Verified 01/30/25 07:36 Allergies*) Home Medications ?Medication ?Instructions ?Recorded ?Confirmed ?Last Taken ?Type calcium carbonate 600 mg PO BID 11/23/24 02/21/25 Unknown History Exam Airway Mallampati Class: I TM Dist: >3cm Neck ROM: Full Loose/Missing/Broken Teeth: No Heart: ok Lungs: ok Assessment and Plan Assessment Anesthesia Assessment: Anesthesia Plan Discussed Final Anesthetic Review Family History of Problems with Anesthesia: No History of Problems with Anesthesia: No NPO: Yes ASA Class: III Final Preanesthetic Review: No Changes in Pt Med Stat, Meds/Allgs Chart Reviewed, Consent Obtained/Reviewed and Anes Risks/Benef Reviewed Patient Risk: Intermediate Procedure Risk: Low Anesthetic Plan Anesthetic Plan: MAC: and Agree w/ Assess. and Plan Disposition: Standard PACU
[2025-02-21 11:24] VITALS: BMI 17.9
[2025-02-21 11:33] VITALS: BP 105/78; PULSE 78; RESP 20; TEMP 36.4; O2SAT 98; BMI 17.3
[2025-02-21] MEDS: Lactated Ringers 1,000 ML 100 ML IVCONT (11:45)
--- NOTE | 2025-02-21 12:36 | MHC.SHP ---
Pre-Procedural Eval Section A - 24 Hr Update-Section A only Date of Service: 02/21/25 Section B - Complete if H&P > 30 days Chief Complaint: screening Details of Present Illness: dyslipidemia, thyroid nodule, palpitations Present Medications: see Short Stay Collaborative assessment Allergies: Allergies Allergy/AdvReac Type Severity Reaction Status Date / Time No Known Allergies (No Known Allergy Verified 01/30/25 07:36 Allergies*) Review of Systems Review of Systems Comment: Ten point ROS negative Exam Exam Comment: Gen appear: No acute distress HEENT: no icterus Chest: No overt resp distress Abd: soft, nontender, nondistended Psych: Stable affect, answering questions appropriately Neuro: A/Ox3 noted to move all extremities spontaneously Ext: no peripheral edema Plan Diagnosis/Plan: Unchanged I have reviewed the history and physical and performed a pertinent physical examination on my patient. No changes have occurred unless specified. Time Spent With Patient Time: Total time managing care of this patient today ____ minutes.
--- NOTE | 2025-02-21 13:19 | P.OPN-COLO_ITS ---
Colonoscopy Operative Note Operative Note Date of Service: 02/21/25 Narrative: Procedure: Colonoscopy Indication: Screening Endoscopist: Debbie Clifford MD Anesthesia Provider: Dr Zelalem Boyd Anesthesia type: MAC Instrument: Olympus [id number]-H190L Consent: Indication, risks vs benefits, and alternatives were discussed with the patient who gave written informed consent to proceed. EKG, pulse, pulse oximetry and blood pressure were monitored throughout the procedure. Please see anesthesia flowsheet. Procedure: The patient was brought to the procedure room and placed in the left lateral decubitus position. IV medications were administered by the anesthesia provider in attendance. A digital rectal exam was performed which was normal. A distal attachment cap was affixed to the tip of the colonoscope which was then inserted through the anus and advanced through the colon to the cecum at 85 cm. Appendiceal orifice and ileocecal valve were identified. Mucosa was carefully examined under high definition white light as the instrument was slowly withdrawn in a retrograde panoramic fashion. Retroflexion was performed in rectum. The procedure was somewhat difficult and required pressure to intubate the cecum. There were no immediate obvious complications. The quality of the prep was BBPS: 2+3+2 = adequate Withdrawal time 10 minutes. Limitations: No limitations. Findings: Mucosa: Normal to cecum. Protruding lesions: * 2 sessile polyps of size 2-5 mm in cecum. Cold snare polypectomy was performed. The polyps were completely removed and retrieved. * 1 sessile polyp of size 5 mm in ascending colon. Cold snare polypectomy was performed. The polyp was completely removed and retrieved. * Large internal hemorrhoids without stigmata of recent bleeding. Excavated lesions: * Severe diverticulosis of left sided colon. Impression: 1. Normal colon mucosa 2. Total of 3 polyps removed 3. External hemorrhoids Recommendations: - Follow path results. - Repeat colonoscopy in 5 years if all 3 polyps are adenomas, otherwise 7 years.
[2025-02-21 13:26] VITALS: BP 92/52; PULSE 54; RESP 18; TEMP 36.3; O2SAT 97
[2025-02-21 13:41] VITALS: BP 107/65; PULSE 50; RESP 18; TEMP 36.2; O2SAT 97
== END 2025-02-21 14:10 | disposition home or self-care (01) ==
PROVIDERS: PCP Nurse Practitioner Family; Visit Provider Internal Medicine
PROC: 0DJD8ZZ Inspection of Lower Intestinal Tract, Via Natural or Artificial Opening Endoscopic (ICD-10-PCS; CPT 45378; principal; 2025-02-21 13:30)
DX: Z12.11 Encounter for screening for malignant neoplasm of colon (principal); D12.0 Benign neoplasm of cecum; D12.2 Benign neoplasm of ascending colon; K57.30 Diverticulosis of large intestine without perforation or abscess without bleeding; K64.8 Other hemorrhoids; K64.4 Residual hemorrhoidal skin tags; E78.5 Hyperlipidemia, unspecified; J45.909 Unspecified asthma, uncomplicated; Z79.899 Other long term (current) drug therapy
CPT/HCPCS: 45385; 88305; J2003; J2704

== ENCOUNTER → 2025-02-21 11:24 | Outpatient (BNV) | payer BC, SELFPAY | PROVIDERS: PCP Nurse Practitioner Family; Visit Provider Internal Medicine | DX: Z12.11 Encounter for screening for malignant neoplasm of colon (principal); D12.0 Benign neoplasm of cecum; D12.2 Benign neoplasm of ascending colon; K57.90 Diverticulosis of intestine, part unspecified, without perforation or abscess without bleeding; K64.8 Other hemorrhoids | CPT/HCPCS: 45385 ==

== ENCOUNTER 2025-02-22 13:48 | Outpatient (REF) | payer BC, SELFPAY ==
--- NOTE | 2025-02-22 13:52 | EMG_ITS ---
Chief complaint: Started out as atypical chest wall pain, pain under her armpits. Noted cramping of left index finger. Noted restlessnes especially of left leg. Exam shows slightly more hyperreflexia on left patella. Cam negative. MRI cervical spine: IMPRESSION: Multilevel degenerative disc bulges/osteophyte complex extending from C3-4 to C5-6 disc levels . There is flattening of the cord as well most prominent at the C5-6 disc level. There is moderate AP canal stenosis C4-5, C5-6 disc level worse at the C5-6 disc level. There is bilateral narrowing of neural foramina worse on the right at the C5-6 disc level Reason for referral: Evaluate for cervical radiculopathy Procedure done: Bilateral upper extremities NCS/EMG Precautions and/or limitations: None The limb temperature was monitored continuously and remained between 32-36 degrees C during the performance of the NCS. Nerve Conduction Studies Anti Sensory Summary Table ?Stim Site NR Onset (ms) Norm Onset (ms) Peak (ms) Norm Peak (ms) O-P Amp (?V) Norm O-P Amp Site1 Site2 Delta-0 (ms) Dist (cm) Marino (m/s) Norm Marino (m/s) Left Median Anti Sensory (2nd Digit) Wrist ? 2.6 3.4 <3.6 32.7 >10 Wrist 2nd Digit 2.6 14.0 54 Right Median Anti Sensory (2nd Digit) Wrist ? 2.5 3.8 <3.6 18.0 >10 Wrist 2nd Digit 2.5 14.0 56 Left Radial Anti Sensory (Thumb) Forearm ? 1.9 2.5 <3.1 14.1 Forearm Thumb 1.9 0.0 Left Ulnar Anti Sensory (5th Digit) Wrist ? 2.2 3.0 <3.7 20.2 >15.0 Wrist 5th Digit 2.2 14.0 64 Right Ulnar Anti Sensory (5th Digit) Wrist ? 2.2 3.0 <3.7 36.1 >15.0 Wrist 5th Digit 2.2 14.0 64 Motor Summary Table ?Stim Site NR Onset (ms) Norm Onset (ms) O-P Amp (mV) Norm O-P Amp iAmp (mV) Amp (1st) (%) Site1 Site2 Delta-0 (ms) Dist (cm) Marino (m/s) Norm Marino (m/s) Left Median Motor (Abd Poll Brev) Wrist ? 3.2 <3.9 11.9 >4.5 13.8 100.0 Elbow Wrist 4.0 20.5 51 >45 Elbow ? 7.2 10.6 12.2 89.1 Right Median Motor (Abd Poll Brev) Wrist ? 3.3 <3.9 12.2 >4.5 13.9 100.0 Elbow Wrist 3.8 21.0 55 >45 Elbow ? 7.1 12.0 13.9 98.4 Left Ulnar Motor (Abd Dig Minimi) Wrist ? 2.7 <3.0 7.7 >5 9.3 100.0 B Elbow Wrist 3.4 19.5 57 >45 B Elbow ? 6.1 7.3 8.9 94.8 A Elbow B Elbow 1.5 10.0 67 >45 A Elbow ? 7.6 7.1 8.7 92.2 Right Ulnar Motor (Abd Dig Minimi) Wrist ? 2.7 <3.0 7.6 >5 9.3 100.0 B Elbow Wrist 3.3 19.0 58 >45 B Elbow ? 6.0 8.1 10.0 106.6 A Elbow B Elbow 1.2 10.0 83 >45 A Elbow ? 7.2 8.3 10.4 109.2 EMG ?Side Muscle Nerve Root Ins Act Fibs Psw Amp Dur Poly Recrt Int Pat Comment Right 1stDorInt Ulnar C8-T1 Nml Nml Nml Nml Nml 0 Nml Complete Right FlexCarRad Median C6-7 Nml Nml Nml Nml Nml 0 Nml Complete Right Biceps Musculocut C5-6 Nml Nml Nml Nml Nml 0 Nml Complete Right Triceps Radial C6-7-8 Nml Nml Nml Nml Nml 0 Nml Complete Right Deltoid Axillary C5-6 Nml Nml Nml Nml Nml 0 Nml Complete Left 1stDorInt Ulnar C8-T1 Nml Nml Nml Nml Nml 0 Nml Complete Left FlexCarRad Median C6-7 Nml Nml Nml Nml Nml 0 Nml Complete Left Biceps Musculocut C5-6 Nml Nml Nml Nml Nml 0 Nml Complete Left Triceps Radial C6-7-8 Nml Nml Nml Nml Nml 0 Nml Complete Left Deltoid Axillary C5-6 Nml Nml Nml Nml Nml 0 Nml Complete Paraspinal EMG ?Side Muscle Nerve Root Ins Act Fibs Psw Comment Right Cervical Upper Rami Nml Nml Nml Right Cervical Mid Rami Incr 1+ 1+ Right Cervical Lower Rami Incr 1+ 1+ Left Cervical Upper Rami Nml Nml Nml Left Cervical Mid Rami Incr 1+ 1+ Left Cervical Lower Rami Nml Nml Nml FINDINGS: Right median sensory nerve showed prolonged peak latency. All other nerves tested were within normal. Concentric needle EMG was performed in selected muscles of the bilateral upper extremities and cervical paraspinals. Study revealed signs of electric abnormalities as shown in the table above. Denervation seen on bilateral mid-lower cervical paraspinals. IMPRESSION: 1. This is an abnormal study. 2. There is electrodiagnostic findings suggestive of ongoing cervical radiculopathy. 3. There is electrodiagnostic findings for right mild median neuropathy at the wrist, could be Carpal Tunnel Syndrome, but unrelated to symptoms. 4. There is no electrodiagnostic evidence for ulnar neuropathy or brachial plexopathy. CLINICAL COMMENT: Patient has a consult with neuro spine scheduled. Thank you for your kind referral. Radha Guerra MD, KELLY Board Certified, [place] Board of [employer] and Rehabilitation (ABPMR) Board Certified, [place] Board of Electrodiagnostic Medicine (ABEM) CODIN [phone] MTDD
--- OUTSIDE RECORDS SUMMARY | 2025-02-22 16:23 | XMS_ITS | Patient Health Record ---
Author Organization [facility] Address [address] [place] [address] Care Team Providers Care Web Site Project Manager Name Role Phone Beverley BAINS, Brent Primary Care Provider Chad Osorio Jr Reason For Referral No Information Medications Medication SIG (Take, Route, Fr equency, Duration) Notes Start Date End Date Status MoviPrep 100 GM as directed before c olonoscopy Orally for 1 dose 01/25/2014 Active Problems Problem Type SNOMED Code ICD Code Onset Dates Problem Status W/U Status Risk Notes Problem [id number] Colon cancer screening (V76.51) Active confirmed Plan Of Treatment Future Test Test Name Order Date COLONOSCOPY 01/25/2014 Insurance Providers Payer Name Payer Address Payer Phone Subscriber Number Group Number Insured Name Patient Relationship to Insured Coverage Start Date Coverage End Date [facility] PROFESSIONAL CLAIMS [address] [place] [address] [id number] MARGY BURNETTE Self - patient is the insured Medical (General) History Medical History History ICD Code Denies NE,DM,CVA,Lung disease,renal dise ase Surgical History Surgery Date(Month/Year) dilatation and curettage
== END 2025-02-22 13:49 | disposition home or self-care (01) ==
LOC: HO.NEURO 13:48
PROVIDERS: PCP Nurse Practitioner Family; Visit Provider Physical Medicine & Rehabilitation
DX: R20.0 Anesthesia of skin (principal)
CPT/HCPCS: 95886; 95911

== ENCOUNTER → 2025-02-22 13:52 | Outpatient (BNV) | payer BC, SELFPAY | PROVIDERS: PCP Nurse Practitioner Family; Visit Provider Physical Medicine & Rehabilitation | DX: M54.12 Radiculopathy, cervical region (principal); G56.01 Carpal tunnel syndrome, right upper limb | CPT/HCPCS: 95886; 95911 ==

== ENCOUNTER 2025-02-24 12:46 | Outpatient (AMB) | payer BC, SELFPAY ==
--- NOTE | 2025-02-24 13:02 | HO.SPINEOV ---
Intake Visit Reasons: cervical stenosis Intake Note: Ms. Sandy is here today c/o neck pain. Posting Specialist Required: No Allergies No Known Allergies (No Known Allergies*) Allergy (Verified 02/24/25 13:09) Assessment & Plan Assessment & Plan (1) Breast pain, right: Code(s): N64.4 - Mastodynia Category: Medical Plan Dear Dr Agustin Real, Thank you for referring Mrs Sandy to our office today. She is a very nice 64-year-old female who presents to the office today for evaluation of an intermittent pain that is in her armpit/axillary region that can radiate across her chest. She does not recall any specific inciting event that started it. It is not there all the time, intermittently comes and goes may last a few minutes then go away. It will occasionally radiate across the chest. It can be under the right armpit or the left armpit. There does not appear to be a primary reason to exactly when it comes and goes. It does however improve with activity, especially when she is at the gym. It is not bad enough for her to need to take pain medication. It is not really a pain in the sense that it is stabbing or sharp, it is rather just a soreness. Cardiac workup was negative. In apparently her lab values are all okay. She did have an EMG showing possible midcervical radiculopathy. She was sent today for an evaluation to see if this could be coming from her neck. PMH: Otherwise healthy, she does have history of diverticulitis, microscopic hematuria, cataracts, surgery. Recently diagnosed with restless legs syndrome. Social hx: Does not smoke or drink use any recreational drugs Medications: Takes no regular medications other than ropinirole Allergies: None Physical exam: Awake alert oriented no acute distress, strength, reflexes and gait are normal. I palpated under axillary region I do not feel any masses or lumps. Imaging review: Cervical MRI shows some moderate disc degeneration at C5-6 more of the right side. No spinal cord compression. Impression: 64-year-old female presents for evaluation of intermittent, fleeting soreness under armpits and across her chest from time to time. It seems to improve with activity. It is really not all that bothersome, it is just more annoying than anything else. Her exam is reassuring. Cardiac origin has been excluded. She has some moderate degenerative disc disease at C5-6 but she is not presenting with any of the classic symptoms of a cervical radiculopathy with pain shooting down the arms. She will get intermittent tingling of her 5th digit once in awhile but again this is nothing consistent or really all that bothersome. I am going to review the imaging with Dr. Dong, but without a true radiculopathy, I do not think he is going to be able to justify doing an anterior cervical fusion. Especially in light of the symptoms being only intermittent and fleeting lasting only for a few minutes then going away. If he has any other thoughts I will let you know. Thank you for allowing us to care for your patient. The total time spent with this visit with this patient was 45 minutes reviewing history, physical exam, cervical imaging review, and implementation of treatment plan or further diagnostic testing Eliecer Dong MD,PhD [facility] Coding Level of Care Code New Pt Level 4 (89916) Diagnoses Breast pain, right N64.4
--- OUTSIDE RECORDS SUMMARY | 2025-02-24 13:22 | XMS_ITS | Patient Health Record ---
Author Organization [facility] Address [address] [place] [address] Care Team Providers Care Tavern Keeper Name Role Phone Beverley BAINS, Brent Primary Care Provider Chad Osorio Jr [phone] Reason For Referral No Information Medications Medication SIG (Take, Route, Fr equency, Duration) Notes Start Date End Date Status MoviPrep 100 GM as directed before c olonoscopy Orally for 1 dose 01/25/2014 Active Problems Problem Type SNOMED Code ICD Code Onset Dates Problem Status W/U Status Risk Notes Problem [id number] Colon cancer screening (V76.51) Active confirmed Plan Of Treatment Future Test Test Name Order Date COLONOSCOPY 01/25/2014 Insurance Providers Payer Name Payer Address Payer Phone Subscriber Number Group Number Insured Name Patient Relationship to Insured Coverage Start Date Coverage End Date [facility] PROFESSIONAL CLAIMS [address] [place] [address] [id number] MARGY BURNETTE Self - patient is the insured Medical (General) History Medical History History ICD Code Denies OR,DM,CVA,Lung disease,renal dise ase Surgical History Surgery Date(Month/Year) dilatation and curettage
== END 2025-02-24 14:24 | disposition home or self-care (01) ==
LOC: HO.HNS 12:47
PROVIDERS: PCP Nurse Practitioner Family; Referring Provider Physical Medicine & Rehabilitation; Visit Provider Physician Assistant
DX: N64.4 Mastodynia (principal)
CPT/HCPCS: 99204

== ENCOUNTER 2025-03-02 08:56 | Outpatient (AMB) | payer BC, SELFPAY ==
--- NOTE | 2025-03-02 08:57 | A.OFFVIS_ITS ---
Intake Visit Reasons: TH- B/L upper extremity MRI review Intake Note: Beverly is a 64 year old female who presents today via Telehealth visit for B/L upper extremity MRI review. At last visit it was discussed for possible referral to pain management for consideration of local injections under ultrasound for costochondral junction or intercostal areas. Patient states that no changes, she reports that she has slight numbness radiating down to her pinky finger. Patient states that from the last time she had physcial therapy she did not have any improvements and no injections. Allergies No Known Allergies (No Known Allergies*) Allergy (Verified 03/02/25 08:59) Medication List - Last Reconciled 03/02/25 by Radha Guerra MD calcium carbonate 600 mg PO BID ropinirole 2 mg PO BEDTIME 30 days HPI Comments Details: States pain started in her right arm pit in late May, she thought it was a irritation to her deodorant. Later was seen at urgent care who sent pt to have a U/S and Mammogram and results were negative for any tumors. Currently states her pain is random and travels across her breast and to the sides of her breast. Ordered thoracic MRI but denied by insurance, however PCP will be having a peer to peer to have it approved. Patient is claustrophobic. Denies inciting injuries and past cervical/thoracic/lumbar issues in the past. No neck pain. Random episodes now of soreness on both armpits, right worse. Denies burning or tingling or numbness. No skin irritation or hypersensitivity. Would get on anterior chest. She was tingling on fingertips, especially on right 5th digit, last episode was 2 months ago. No weakness. She continues to have intermittent episodes of pain under armpits or anterior chest, alternates left than right. On a couple episode she had noted index fingers to extend spontaneously. And she had also noticed 1 episode of numbness on right 5th digit. Otherwise no new atrophy, weight loss, falls, injuries, change of gait, change in bladder or bowel. MRI 01/29/25: MRI cervical spine: IMPRESSION: Multilevel degenerative disc bulges/osteophyte complex extending from C3-4 to C5-6 disc levels . There is flattening of the cord as well most prominent at the C5-6 disc level. There is moderate AP canal stenosis C4-5, C5-6 disc level worse at the C5-6 disc level. There is bilateral narrowing of neural foramina worse on the right at the C5-6 disc level EMG 02/22/25: FINDINGS: Right median sensory nerve showed prolonged peak latency. All other nerves tested were within normal. Concentric needle EMG was performed in selected muscles of the bilateral upper extremities and cervical paraspinals. Study revealed signs of electric abnormalities as shown in the table above. Denervation seen on bilateral mid-lower cervical paraspinals. IMPRESSION: 1. This is an abnormal study. 2. There is electrodiagnostic findings suggestive of ongoing cervical radiculopathy. 3. There is electrodiagnostic findings for right mild median neuropathy at the wrist, could be Carpal Tunnel Syndrome, but unrelated to symptoms. 4. There is no electrodiagnostic evidence for ulnar neuropathy or brachial plexopathy. CLINICAL COMMENT: Patient has a consult with neuro spine scheduled. Neurospine Eliecer ROTHMAN 02/24/25: Impression: 64-year-old female presents for evaluation of intermittent, fleeting soreness under armpits and across her chest from time to time. It seems to improve with activity. It is really not all that bothersome, it is just more annoying than anything else. Her exam is reassuring. Cardiac origin has been excluded. She has some moderate degenerative disc disease at C5-6 but she is not presenting with any of the classic symptoms of a cervical radiculopathy with pain shooting down the arms. She will get intermittent tingling of her 5th digit once in awhile but again this is nothing consistent or really all that bothersome. I am going to review the imaging with Dr. Dong, but without a true radiculopathy, I do not think he is going to be able to justify doing an anterior cervical fusion. Especially in light of the symptoms being only intermittent and fleeting lasting only for a few minutes then going away. If he has any other thoughts I will let you know. Only right 5th digit gets tingling, did happen this morning. But before that, it's been 2 weeks without it. None of her symptoms are debilitating, per patient. ON LICENSE OF [facility] Medical History (Updated 02/22/25 @ 15:32 by Jerel Echols, OMERO-) Fatty liver Abdominal pain, right lower quadrant Dense breast tissue on mammogram Surgical History (Updated 02/21/25 @ 11:45 by Lissette Hartman RN) Hx of dilation and curettage Hx of section H/O lumpectomy Hx of colonoscopy (~2013) Family History Mother Breast cancer Maternal Aunt Lung cancer Breast cancer Father CHF (congestive heart failure) Brother H/O cardiac radiofrequency ablation Social History Household Members: Spouse Housing: House Alcohol intake: current Alcohol intake frequency: does not drink Patient Tobacco Use Status: Never used Tobacco e-Cigarette/Vaping Use: Never Used service: No Current occupational status: employed 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 Current occupational exposures/hazards: No Cognitive needs: No Hearing needs: No Vision needs: Yes Telehealth Telehealth Telehealth Platform: Telephone Location of provider rendering services: practice address Location of patient: address on file Patient Identification confirmed using: Name, : Yes Telehealth method: voice only Patient verbally consented to treatment: Yes Patient verbally consented to billing insurance company: Yes Patient informed of any privacy concerns related to visit: Yes Minutes spent on Phone/Video with Pt.: 20 Results Reviewed Results Reviewed: as above Assessment & Plan Assessment & Plan (1) Chest discomfort: Code(s): R07.89 - Other chest pain Category: Medical (2) Cervical spinal stenosis: Code(s): M48.02 - Spinal stenosis, cervical region Category: Medical (3) Right carpal tunnel syndrome: Code(s): G56.01 - Carpal tunnel syndrome, right upper limb Category: Medical (4) Restless legs: Code(s): G25.81 - Restless legs syndrome Category: Medical Plan We have not found specific etiology for her various random symptoms such as atypical chest pain, tingling on right 5th digit, and restless leg. We reviewed the note from neuro spine. I did send a workload message to Eliecer ROTHMAN to make sure he saw the EMG result. Beverly is seeing pain management Dr. Noguera in March, for consideration of injection for costochondritis? She had questions regarding ropinirole prescribed by PCP. I think it is reasonable to start the 2 mg as they prescribed. We talked about side effects to watch out for. Assessment and plan discussed with patient, and patient was agreeable. All que stions were answered thoroughly. Follow up 6 months. Radha Guerra MD, KELLY Board Certified, [place] Board [employer] Physical Medicine and Rehabilitation (ABPMR) Board Certified, [place] Board of Electrodiagnostic Medicine (ABEM) Coding Level of Care Code Tele Est Pt Level 3 (85226) Diagnoses Chest discomfort R07.89 Cervical spinal stenosis M48.02 Right carpal tunnel syndrome G56.01 Restless legs G25.81
--- OUTSIDE RECORDS SUMMARY | 2025-03-02 09:07 | XMS_ITS | Patient Health Record ---
Author Organization [facility] Address [address] [place] [address] Care Team Providers Care Proposal Director Name Role Phone Beverley BAINS, Brent Primary Care Provider Chad Osorio Jr Reason For Referral No Information Medications Medication SIG (Take, Route, Fr equency, Duration) Notes Start Date End Date Status MoviPrep 100 GM as directed before c olonoscopy Orally for 1 dose 01/25/2014 Active Problems Problem Type SNOMED Code ICD Code Onset Dates Problem Status W/U Status Risk Notes Problem [id number] Colon cancer screening (V76.51) Active confirmed Plan Of Treatment Future Test Test Name Order Date COLONOSCOPY 01/25/2014 Insurance Providers Payer Name Payer Address Payer Phone Subscriber Number Group Number Insured Name Patient Relationship to Insured Coverage Start Date Coverage End Date [facility] PROFESSIONAL CLAIMS [address] [place] [address] [id number] MARGY BURNETTE Self - patient is the insured Medical (General) History Medical History History ICD Code Denies [place],DM,CVA,Lung disease,renal dise ase Surgical History Surgery Date(Month/Year) dilatation and curettage
== END 2025-03-02 09:25 | disposition home or self-care (01) ==
LOC: HO.HOS 08:56
PROVIDERS: PCP Nurse Practitioner Family; Visit Provider Physical Medicine & Rehabilitation
DX: R07.89 Other chest pain (principal); M48.02 Spinal stenosis, cervical region; G56.01 Carpal tunnel syndrome, right upper limb; G25.81 Restless legs syndrome
CPT/HCPCS: 99213

== ENCOUNTER 2025-03-10 08:27 | Outpatient (REF) | payer BC, SELFPAY ==
--- NOTE | ~2025-03-10 | MM_ITS ---
EXAMINATION: DXA BONE DENSITY AXIAL HISTORY: M81.0 - Age-related osteoporosis without current pathological fracture TECHNIQUE: The [employer] Dual energy absorptiometry (DEXA) of the lumbar spine, total left hip, and femoral neck was performed. COMPARISON: Comparison is made with the prior examination dated 09/16/2018. FINDINGS: The bone mineral density of the lumbar spine is 0.958 g/cm2, corresponding to a T-score of -1.8, and a Z-score of -0.1. This is indicative of osteopenia. This represents a BMD change of -4.3% compared to the prior exam. This is statistically significant. The bone mineral density of the left total hip is 0.842 g/cm2, corresponding to a T-score of -1.3, and a Z-score of 0.0. This is indicative of osteopenia.- This represents a BMD change of -4.2% compared to the prior exam. This is statistically significant. The bone mineral density of the left femoral neck is 0.886 g/cm2, corresponding to a T-score of -1.1, and a Z-score of 0.5. This is indicative of osteopenia. This represents a BMD change of -0.1% compared to the prior exam. FRACTURE RISK: The FRAX index suggests a ten year probability of major osteoporotic fracture of 6.3%, and of hip fracture 0.5%. MM/XR DEXA axial skeleton IMPRESSION: Based on bone mineral density, and according to World Health Organization (WHO) criteria, the diagnosis is consistent with osteopenia. Statistically, 68% of repeat scans fall within 1 SD (+/- 0.010 g/cm2 for AP spine L1-L4) and 1 SD (+/- 0.012 g/cm2 for femur total) FRAX is a trademark of the [employer]'s [place] [facility] Metabolic Bone Disease, a World Health Organization (WHO) Collaborating Center. Electronically signed by: Manuel Page MD 03/10/2025 08:59 AM EDT
--- OUTSIDE RECORDS SUMMARY | 2025-03-10 08:34 | XMS_ITS | Patient Health Record ---
Author Organization [facility] Address [address] [place] [address] Care Team Providers Care Digital Media Buyer Name Role Phone Beverley BAINS, Brent Primary Care Provider Chad Osorio Jr [phone] Reason For Referral No Information Medications Medication SIG (Take, Route, Fr equency, Duration) Notes Start Date End Date Status MoviPrep 100 GM as directed before c olonoscopy Orally for 1 dose 01/25/2014 Active Problems Problem Type SNOMED Code ICD Code Onset Dates Problem Status W/U Status Risk Notes Problem [id number] Colon cancer screening (V76.51) Active confirmed Plan Of Treatment Future Test Test Name Order Date COLONOSCOPY 01/25/2014 Insurance Providers Payer Name Payer Address Payer Phone Subscriber Number Group Number Insured Name Patient Relationship to Insured Coverage Start Date Coverage End Date [facility] PROFESSIONAL CLAIMS [address] [place] [address] [id number] MARGY BURNETTE Self - patient is the insured Medical (General) History Medical History History ICD Code Denies [place],DM,CVA,Lung disease,renal dise ase Surgical History Surgery Date(Month/Year) dilatation and curettage
== END 2025-03-10 08:28 | disposition home or self-care (01) ==
LOC: HO.MAMMO 08:27
PROVIDERS: PCP Nurse Practitioner Family; Visit Provider Nurse Practitioner Family
DX: M81.0 Age-related osteoporosis without current pathological fracture (principal)
CPT/HCPCS: 77080

== ENCOUNTER → 2025-03-10 08:45 | Outpatient (BNV) | payer BC, SELFPAY | PROVIDERS: PCP Nurse Practitioner Family; Visit Provider Radiology Diagnostic Radiology | DX: E28.39 Other primary ovarian failure (principal) | CPT/HCPCS: 77080 ==

== ENCOUNTER 2025-03-22 08:21 | Outpatient (AMB) | payer BC, SELFPAY ==
[2025-03-22 08:26] VITALS: BMI 17.3
--- NOTE | 2025-03-22 08:26 | MHC.OFFVIS ---
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 Normal sensation to all other digits in the [R/L] hand today. Normal sensation in the tips of all digits of the [opposite] hand today. No thenar or intrinsic wasting. Good APB muscle firing and good finger cross. Vascular: Capillary refill brisk. ROM: Patient can make a fist and extend all their digits. Skin: No lacerations or abrasions noted. General: No ecchymosis. No erythema or evidence of infection. [] Neuro: Decreased sensation in the []. Normal sensation to all other digits in the [R/L] hand today. Normal sensation in the tips of all digits of the [opposite] hand today. No thenar or intrinsic wasting. Good APB muscle firing and good finger cross. Vascular: Capillary refill brisk. ROM: Patient can make a fist and extend all their digits. Skin: No lacerations or abrasions noted. General: No ecchymosis. No erythema or evidence of infection. [] Patient is alert, oriented, and in no acute distress. Neuro: Normal sensation of the tips of all digits of the [] hand at this time Vascular: Cap refill brisk Pain: [] ROM: [] Skin: No lacerations or abrasions. General: No ecchymosis, erythema, or evidence of infection. Psych: Appears grossly normal Affect normal Attitude cooperative X Allergies No Known Allergies (No Known Allergies*) Allergy (Verified 03/22/25 08:39) [facility] Medical History (Updated 03/06/25 @ 08:15 by Jerel Echols [facility]) Fatty liver Abdominal pain, right lower quadrant Dense breast tissue on mammogram Surgical History (Updated 02/21/25 @ 11:45 by Lissette Hartman RN) Hx of dilation and curettage Hx of section H/O lumpectomy Hx of colonoscopy (~2013) Family History Mother Breast cancer Maternal Aunt Lung cancer Breast cancer Father CHF (congestive heart failure) Brother H/O cardiac radiofrequency ablation Social History Household Members: Spouse Housing: House Alcohol intake: current Alcohol intake frequency: does not drink Patient Tobacco Use Status: Never used Tobacco e-Cigarette/Vaping Use: Never Used service: No Current occupational status: employed 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 The hyperextension of the left index finger has occurred approximately six times but has not recurred in the past six weeks. The tingling sensation predominantly affects the right pinky finger, with occasional occurrences in the left hand, and is accompanied by a persistent feeling of coldness in the hands. The patient underwent an x-ray and an EMG, which revealed mild bilateral carpal tunnel syndrome and osteoporosis in the hand. The carpal tunnel syndrome does not account for the numbness in the small finger, as it typically affects the thumb, index, and middle fingers. The patient reports involuntary muscle contractions in the fingers, described as a fluttering or trembling sensation, which are not currently present. These symptoms are considered to be benign involuntary muscle contractions, with no immediate intervention required unless symptoms worsen. Review of Systems - Musculoskeletal: Reports hyperextension of the left index finger, tingling sensation in the right pinky finger, and involuntary muscle contractions in fingers. Denies current symptoms of hyperextension or muscle contractions. - Neurological: Reports tingling sensation in the right pinky finger. Denies numbness in other fingers. - General: Reports persistent coldness in hands. Systems reviewed and are negative except as per HPI and below Physical Exam Patient is alert, oriented, and in no acute distress. Neuro: Normal sensation of the tips of all digits of the bilateral hand at this time Vascular: Cap refill brisk Pain: No tenderness to palpation about bilateral hands or wrists No pain with range of motion of bilateral hands ROM: Patient is able to make a closed fist and extend all digits of bilateral hands fully and without difficulty Skin: No lacerations or abrasions. General: No ecchymosis, erythema, or evidence of infection. Psych: Appears grossly normal Affect normal Attitude cooperative Results - Imaging: Hand x-ray showed osteoporosis. - Tests: EMG and nerve conduction study showed mild bilateral carpal tunnel syndrome. Procedure Plan The patient is advised to maintain hand mobility through regular exercises, such as making a fist and curling fingers to touch the palm, to engage the MCP joints fully. No acute intervention is required for the hyperextension of the left index finger or the involuntary muscle contractions, as these are considered benign unless symptoms worsen. The patient is instructed to monitor for any worsening of symptoms, such as increased numbness or tingling, and to contact the clinician if these occur. The mild bilateral carpal tunnel syndrome does not require immediate treatment, as it does not explain the numbness in the small finger. The patient is advised to seek further evaluation if symptoms persist or worsen, potentially involving a neurology consultation if necessary. Patient was informed and verbally consented to the use of an ambient scribe for clinic note documentation during this visit. Discussion Notes I discussed with the patient that the hyperextension of the left index finger and involuntary muscle contractions are likely benign and do not require immediate intervention unless symptoms worsen. I advised maintaining hand mobility through exercises and monitoring for any worsening symptoms. The mild bilateral carpal tunnel syndrome does not explain the numbness in the small finger, and further evaluation may be necessary if symptoms persist, potentially involving a neurology consultation. Patient Instructions - Keep your hands moving with exercises like making a fist and curling fingers to touch the palm. - Monitor for any worsening of symptoms, such as increased numbness or tingling. - Contact the clinician if symptoms worsen or if you have any concerns. Coding Level of Care Code New Pt Level 3 (53333) Diagnoses Pain of hand and fingers M79.643; M79.646
--- OUTSIDE RECORDS SUMMARY | 2025-03-22 08:33 | XMS_ITS | Patient Health Record ---
Author Organization [facility] Address [address] [place] [address] Care Team Providers Care Head Of Housekeeping Name Role Phone Beverley (RETIRED) Brent BAINS Primary Care Provide r Unavailable Chad Rosenthal Jr Unavailable Reason For Referral No Information Medications Medication SIG (Take, Route, Fr equency, Duration) Notes Start Date End Date Status MoviPrep 100 GM as directed before c olonoscopy Orally for 1 dose 01/25/2014 Active Problems Problem Type SNOMED Code ICD Code Onset Dates Problem Status W/U Status Risk Notes Problem [id number] Colon cancer screening (V76.51) Active confirmed Plan Of Treatment Future Test Test Name Order Date COLONOSCOPY 01/25/2014 Insurance Providers Payer Name Payer Address Payer Phone Subscriber Number Group Number Insured Name Patient Relationship to Insured Coverage Start Date Coverage End Date [facility] [address] [place] [address] [id number] MARGY BURNETTE Self - patient is the insured Medical (General) History Medical History History ICD Code Denies [place],DM,CVA,Lung disease,renal dise ase Surgical History Surgery Date(Month/Year) dilatation and curettage
== END 2025-03-22 08:55 | disposition home or self-care (01) ==
PROVIDERS: PCP Nurse Practitioner Family
DX: R20.0 Anesthesia of skin (principal); R20.2 Paresthesia of skin; M79.642 Pain in left hand; M79.645 Pain in left finger(s)
CPT/HCPCS: 95886; 95910; 99203

== ENCOUNTER 2025-03-22 13:25 | Outpatient (REF) | payer BC, SELFPAY ==
--- NOTE | 2025-03-22 13:27 | EMG_ITS ---
Chief complaint: Presumed RLS, twitching especially on dorsal left foot and toes. Admits to be a side sleeper. She does have some back pain. No atrophy. No weakness. Reason for referral: Evaluate for neuropathy Referred by: Jerel Zavaleta NP Procedure done: Bilateral lower extremity NCS/EMG Precautions and/or limitations: None The limb temperature was monitored continuously and remained between 32-36 degrees C during the performance of the NCS. Nerve Conduction Studies Anti Sensory Summary Table ?Stim Site NR Onset (ms) Norm Onset (ms) Peak (ms) Norm Peak (ms) O-P Amp (?V) Norm O-P Amp Site1 Site2 Delta-0 (ms) Dist (cm) Marino (m/s) Norm Marino (m/s) Left Sup Peron Anti Sensory (Ankle) Lateral Leg ? 2.3 3.6 <4.4 3.7 >5.0 Lateral Leg Ankle 2.3 14.0 61 Right Sup Peron Anti Sensory (Ankle) Lateral Leg NR <4.4 >5.0 Lateral Leg Ankle 14.0 Left Sural Anti Sensory (Lat Mall) Calf ? 3.1 3.7 <4.0 6.8 >5.0 Calf Lat Mall 3.1 14.0 45 Right Sural Anti Sensory (Lat Mall) Calf ? 3.1 3.8 <4.0 7.8 >5.0 Calf Lat Mall 3.1 14.0 45 Motor Summary Table ?Stim Site NR Onset (ms) Norm Onset (ms) O-P Amp (mV) Norm O-P Amp iAmp (mV) Amp (1st) (%) Site1 Site2 Delta-0 (ms) Dist (cm) Marino (m/s) Norm Marino (m/s) Left Peroneal Motor (Ext Dig Brev) Ankle ? 4.8 <4.0 3.7 >2.5 4.7 100.0 Ankle Ext Dig Brev 4.8 0.0 B Fib ? 12.6 3.5 4.3 94.6 B Fib Ankle 7.8 33.0 42 >40 Poplt ? 13.8 3.4 4.0 91.9 Poplt B Fib 1.2 4.5 37 >40 Right Peroneal Motor (Ext Dig Brev) Ankle ? 5.0 <4.0 2.6 >2.5 3.6 100.0 Ankle Ext Dig Brev 5.0 0.0 B Fib ? 12.5 3.2 4.2 123.1 B Fib Ankle 7.5 32.0 43 >40 Poplt ? 13.4 3.2 4.2 123.1 Poplt B Fib 0.9 6.0 67 >40 Left Tibial Motor (Abd Talbot Brev) Ankle ? 4.5 <5 7.3 >2.5 10.4 100.0 Ankle Abd Talbot Brev 4.5 0.0 Knee ? 13.4 3.8 5.2 52.1 Knee Ankle 8.9 42.0 47 >40 Right Tibial Motor (Abd Talbot Brev) Ankle ? 4.1 <5 8.1 >2.5 11.6 100.0 Ankle Abd Talbot Brev 4.1 0.0 Knee ? 12.9 5.8 7.3 71.6 Knee Ankle 8.8 41.0 47 >40 EMG ?Side Muscle Nerve Root Ins Act Fibs Psw Amp Dur Poly Recrt Int Pat Comment Right AbdHallucis MedPlantar S1-2 Nml Nml Nml Nml Nml 0 Nml Complete Right AntTibialis Dp Br Peron L4-5 Nml Nml Nml Nml Nml 0 Nml Complete Right PostTibialis Tibial L5, S1 Nml Nml Nml Nml Nml 0 Nml Complete Right MedGastroc Tibial S1-2 Nml Nml Nml Nml Nml 0 Nml Complete Right VastusMed Femoral L2-4 Nml Nml Nml Nml Nml 0 Nml Complete Left AbdHallucis MedPlantar S1-2 Nml Nml Nml Nml Nml 0 Nml Complete Left AntTibialis Dp Br Peron L4-5 Nml Nml Nml Nml Nml 0 Nml Complete Left MedGastroc Tibial S1-2 Nml Nml Nml Nml Nml 0 Nml Complete Left VastusMed Femoral L2-4 Nml Nml Nml Nml Nml 0 Nml Complete Left Peroneus Long Sup Br Peron L5-S1 Nml Nml Nml Nml Nml 0 Nml Complete Paraspinal EMG ?Side Muscle Nerve Root Ins Act Fibs Psw Comment Right Lumbar Upper Rami Nml Nml Nml Right Lumbar Mid Rami Nml Nml Nml Right Lumbar Lower Rami Nml Nml Nml Left Lumbar Upper Rami Nml Nml Nml Left Lumbar Mid Rami Nml Nml Nml Left Lumbar Lower Rami Nml Nml Nml FINDINGS: Right peroneal nerve showed prolonged distal latency, normal amplitude and normal conduction velocity. Left peroneal nerve showed prolonged distal latency, normal amplitude and slow conduction velocity across fibular neck. Right superficial peroneal nerve showed normal peak latency but small amplitude. Left superficial peroneal nerves showed absent response. All other nerves tested were within normal. Concentric needle EMG was performed in selected muscles of the bilateral lower extremity and lumbar paraspinals. Study did not reveal signs of electric abnormalities as shown in the table above. IMPRESSION: 1. This is an abnormal study. 2. 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 Much more localizable on left side as left peroneal neuropathy at fibular neck. 3. There is no electrodiagnostic evidence for tibial neuropathy, lumbosacral plexopathy, lumbar radiculopathy, or peripheral neuropathy. CLINICAL COMMENT: Results discussed with patient. Thank you for your kind referral. Radha Guerra MD, KELLY Board Certified, [place] Board [employer] and Rehabilitation (ABPMR) Board Certified, [place] Board of Electrodiagnostic Medicine (ABEM) CODIN [phone] [id number] x 2 MTDD
== END 2025-03-22 13:26 | disposition home or self-care (01) ==
LOC: HO.NEURO 13:25
PROVIDERS: Visit Provider Nurse Practitioner Family
DX: G57.92 Unspecified mononeuropathy of left lower limb (principal); G57.91 Unspecified mononeuropathy of right lower limb; R94.131 Abnormal electromyogram [EMG]
CPT/HCPCS: 95886; 95910

== ENCOUNTER 2025-03-27 09:22 | Outpatient (REF) | payer BC, SELFPAY ==
[2025-03-27 14:46] LABS: Alanine Aminotransferase 23 U/L (0-31); Albumin Level 4.6 g/dL (3.5-5.0); Alkaline Phosphatase 54 U/L (39-117); Anion Gap 12 (12-20); Aspartate Amino Transferase 28 U/L (5-31); Blood Urea Nitrogen 14 mg/dL (9-16); Calcium 9.1 mg/dL (8.4-10.2); Carbon Dioxide 27 mmol/L (22-29); Chloride 102 mmol/L (96-108); Estimated Glomerular Filt Rate > 60; Iron 67 mcg/dL (30-160); Percent Iron Saturation 27 % (15-50); Potassium 4.1 mmol/L (3.3-5.1); Sodium 137 mmol/L (135-145); Total Iron Binding Capacity 246 mcg/dL (228-428); Total Protein 6.8 g/dL (6.5-8.0); Unsaturated Iron Binding 179 ug/dL
[2025-03-27 14:58] LABS: Syphilis Screen Nonreactive (Nonreactive)
[2025-03-27 15:02] LABS: Ferritin 94 ng/mL (10-250)
[2025-03-27 15:13] LABS: Folate 11.1 ng/mL (> or = 4.0); Vitamin B12 353 pg/mL (200-900)
[2025-03-28 14:53] LABS: Lyme Abs Screen <0.90 index
[2025-03-28 22:23] LABS: A. Phagocytphilium DNA,RT-PCR NOT DETECTED (NOT DETECTED); Babesia Microti DNA, RT-PCR NOT DETECTED (NOT DETECTED); Borrelia Miyamotoi,DNA RT-PCR NOT DETECTED (NOT DETECTED); E.Chaffeensis DNA RT-PCR NOT DETECTED (NOT DETECTED); Lyme(Borrelia ssp)DNA RT-PCR NOT DETECTED (NOT DETECTED)
[2025-03-30 21:23] LABS: Prot Elec - Albumin 4.3 g/dL (3.8-4.8); Prot Elec - Alpha1 0.2 g/dL (0.2-0.3); Prot Elec - Alpha2 0.6 g/dL (0.5-0.9); Prot Elec - Beta 1 0.4 g/dL (0.4-0.6); Prot Elec - Beta 2 0.3 g/dL (0.2-0.5); Prot Elec - Gamma 0.8 g/dL (0.8-1.7); Prot Elec - Total Protein 6.6 g/dL (6.1-8.1)
== END 2025-03-27 09:23 | disposition home or self-care (01) ==
LOC: HO.LAB 09:22
PROVIDERS: PCP Nurse Practitioner Family; Referring Provider Nurse Practitioner Family; Visit Provider Nurse Practitioner Family
DX: G57.90 Unspecified mononeuropathy of unspecified lower limb (principal); G25.81 Restless legs syndrome; R31.29 Other microscopic hematuria
CPT/HCPCS: 36415; 80053; 81003; 82607; 82728; 82746; 82784; 83090; 83540; 83921; 84165; 86334; 86617; 86618; 86780; 87468; 87469; 87478; 87484; 87798; 88112

== ENCOUNTER 2025-03-27 09:22 | Outpatient (AMB) | payer BC, SELFPAY ==
--- NOTE | 2025-03-27 09:33 | A.OFFVIS_ITS ---
Intake Visit Reasons: 6m/micro hematuria Intake Note: Patient is present for 6M/MICRO HEMATURIA Urology Medication:NONE Antibiotic Allergy:NONE Blood Thinner:NONE Drum Barker Operator Required: No Allergies No Known Allergies (No Known Allergies*) Allergy (Verified 03/27/25 10:11) Medication List - Last Reconciled 03/27/25 by TIGRE Kaye calcium carbonate 600 mg PO BID ropinirole 2 mg PO BEDTIME 30 days HPI Comments Details: Beverly Herrera is a very pleasant 64-year-old female patient of Dr. Zavaleta. She presents to the office today for follow-up of her microscopic hematuria. In discussion with the patient today she reports to be doing and feeling well. She denies having had any bothersome urinary issues or concerns. Previous workup has included CT urogram 07/24 noting no radiopaque urolith, enhancing renal mass or hydronephrosis seen. There is a nonenhancing cyst right kidney. Unremarkable urinary bladder. During last office visit 09/24 patient underwent an office cystoscopy with Dr. Chan Kaiser that noted bladder mucosa within normal limits. No suspicious bladder lesions. Urine cytologies 07/24 & 08/23 Negative for high-grade urothelial carcinoma. She denies any known history of workplace chemical exposure and or any previous smoking history. In office urinalysis results reviewed with the patient today trace microscopic hematuria otherwise within normal limits. She does report to be drinking a proximally 80 oz of water a day. We did discussed potential causes of microscopic hematuria. All questions were answered. We will continue with surveillance monitoring. She denies urinary urgency, urinary frequency, incontinence, nocturia, hematuria, dysuria, foul smelling urine, changes to urinary stream, flank pain, fever, and or chills. She is happy with her current voiding parameters. She otherwise offers no other issues or concerns at this time. [facility] Medical History Fatty liver Abdominal pain, right lower quadrant Dense breast tissue on mammogram Surgical History (Updated 02/21/25 @ 11:45 by Lissette Hartman RN) Hx of dilation and curettage Hx of section H/O lumpectomy Hx of colonoscopy (~2013) Family History Mother Breast cancer Maternal Aunt Lung cancer Breast cancer Father CHF (congestive heart failure) Brother H/O cardiac radiofrequency ablation Social History Household Members: Spouse Housing: House Alcohol intake: current Alcohol intake frequency: does not drink Patient Tobacco Use Status: Never used Tobacco e-Cigarette/Vaping Use: Never Used service: No Current occupational status: employed 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 Current occupational exposures/hazards: No Cognitive needs: No Hearing needs: No Vision needs: Yes Review of Systems Const All systems reviewed & are unremarkable except as noted in HPI and below Physical Exam Const General: cooperative, healthy appearing, comfortable, no acute distress, well developed, alert and awake Nutritional Appearance: thin Orientation/consciousness: patient oriented x3 Limitations: no limitations HEENT Head: Yes normal to inspection, Yes normocephalic and Yes atraumatic Ears: hearing grossly normal bilaterally Eyes General: appearance normal, both eyes and all related structures Neck Neck: Yes normal visual inspection and Yes trachea midline Chest Chest palpation & inspection: normal inspection of the chest Resp Effort & Inspection: normal respiratory effort and able to speak in complete sentences Cardio Rate: regular rate GI Inspection: Yes normal to inspection General: Yes no CVA tenderness Back/Spine/Pelvis Back: no CVA tenderness Skin General skin exam: no rashes or lesions noted Neuro General: patient oriented x3 Extrem General: Yes normal to inspection Psych Appearance: grossly normal and well kempt Mental Status: mental status grossly normal Speech and movement: Normal speech and movement present and Clear speech present Affect: normal affect Attitude: cooperative Thought process: Normal thought process present Thought content: Normal thought content present Insight: Fair insight present (Psych) Judgement: Fair judgement present (Psych) Results AMB Urinalysis, Automated UA Leukoctes 0 Job/uL Last Edit by FRANK Gudino on 03/27/25 09:51 UA Nitrite Negative Last Edit by FRANK Gudino on 03/27/25 09:51 UA Urobilinogen 0.2 mg/dL Last Edit by FRANK Gudino on 03/27/25 09:5 1 UA Protein 0 mg/dL Last Edit by FRANK Gudino on 03/27/25 09:51 UA pH 6.0 Last Edit by FRANK Gudino on 03/27/25 09:51 UA Blood 10 Freddy/uL Last Edit by FRANK Gudino on 03/27/25 09:51 UA Specific [place] 1.010 Last Edit by FRANK Gudino on 03/27/25 09: 51 UA Ketone Negative Last Edit by FRANK Gudino on 03/27/25 09:51 UA Bilirubin 0 mg/dL Last Edit by FRANK Gudino on 03/27/25 09:51 UA Glucose 0 mg/dL Last Edit by FRANK Gudino on 03/27/25 09:51 Results Reviewed Results Reviewed: Laboratory Last Values Urine pH (Auto) 6.0 03/27/25 09:51 Specific [place] (Auto) 1.010 03/27/25 09:51 Urine Protein (Auto) 0 mg/dL 03/27/25 09:51 Glucose (UA)(Auto) 0 mg/dL 03/27/25 09:51 Urine Ketones (Auto) Negative 03/27/25 09:51 Urine Blood (Auto) 10 Freddy/uL 03/27/25 09:51 Urine Nitrite (Auto) Negative 03/27/25 09:51 Urine Bilirubin (Auto) 0 mg/dL 03/27/25 09:51 Urine Urobilinogen (Auto) 0.2 mg/dL 03/27/25 09:51 Leukocyte Esterase (Auto) 0 Job/uL 03/27/25 09:51 Assessment & Plan Assessment & Plan (1) Microscopic hematuria: Code(s): R31.29 - Other microscopic hematuria Category: Medical Plan In office urinalysis results reviewed the patient today; as noted above; will send for urine cytology. She currently denies any bothersome urinary issues or concerns. She reports be happy with current voiding parameters. Will continue with surveillance monitoring. All questions were answered. Previous urine cytology results were reviewed. Follow-up in 6 months; or sooner with any issues, concerns, and or questions. Orders: Orders Urine Cytology Today R31.29 - Other microscopic hematuria AMB Urinalysis Automated Today Z13.9 - Encounter for screening, unspecified Patient Instructions: The patient had an opportunity to ask questions regarding the treatment plan. All questions were answered. Physical exam, labs, and imaging were discussed and reviewed in detail. As well as risks, benefits, and discussion of treatment choices. No major barriers to understanding were identified. The patient expressed understanding and agreement with the above treatment plan. The patient was made aware they should contact our office by phone for worsening of their current condition, the appearance of new symptoms, or with any questions or concerns. Compliance is encouraged with any medications and follow up testing that is ordered. It is a privilege to be allowed the opportunity to participate in? your urological care.? Again, if you have any questions or concerns If you have any questions or concerns please do not hesitate to contact me. The office is [phone]. This note is constructed using voice recognition software. While every effort has been made to ensure accuracy rubbing bed operator errors may have been included. Yours sincerely, TIGRE Kaye Coding Level of Care Code Est Pt Level 3 (52384) Diagnoses Microscopic hematuria R31.29
--- OUTSIDE RECORDS SUMMARY | 2025-03-27 10:20 | XMS_ITS | Patient Health Record ---
Author Organization [facility] Address [address] [place] [address] Care Team Providers Care Skip Pit Worker Name Role Phone Beverley (RETIRED) Brent BAINS Primary Care Provide r Unavailable Chad Rosenthal Jr Unavailable [phone] Reason For Referral No Information Medications Medication SIG (Take, Route, Fr equency, Duration) Notes Start Date End Date Status MoviPrep 100 GM as directed before c olonoscopy Orally for 1 dose 01/25/2014 Active Problems Problem Type SNOMED Code ICD Code Onset Dates Problem Status W/U Status Risk Notes Problem [id number] Colon cancer screening (V76.51) Active confirmed Plan Of Treatment Future Test Test Name Order Date COLONOSCOPY 01/25/2014 Insurance Providers Payer Name Payer Address Payer Phone Subscriber Number Group Number Insured Name Patient Relationship to Insured Coverage Start Date Coverage End Date [facility] [address] [place] [address] [id number] MARGY BURNETTE Self - patient is the insured Medical (General) History Medical History History ICD Code Denies [place],DM,CVA,Lung disease,renal dise ase Surgical History Surgery Date(Month/Year) dilatation and curettage
== END 2025-03-27 10:04 | disposition home or self-care (01) ==
LOC: HO.HUSH 09:33
PROVIDERS: PCP Nurse Practitioner Family; Visit Provider Nurse Practitioner Family
DX: R31.29 Other microscopic hematuria (principal); Z13.9 Encounter for screening, unspecified
CPT/HCPCS: 99213

== ENCOUNTER 2025-04-04 06:46 | Outpatient (AMB) | payer BC, SELFPAY ==
--- NOTE | 2025-04-04 07:55 | MHC.PC.OV ---
Intake Visit Reasons: RLS Symptoms Allergies No Known Allergies (No Known Allergies*) Allergy (Verified 04/04/25 07:55) Medication List - Last Reconciled 04/04/25 by TIGRE Soto calcium carbonate 600 mg PO BID ropinirole 2 mg PO BEDTIME 30 days Tobacco use date assessed: 05/17/24 Dental Screening Dental Screen Date: 05/17/24 HPI RLS Symptoms HPI Details History of Present Illness The patient is a 64-year-old female presenting with anxiety related to random muscle twitching and concerns about Parkinson's disease. The patient reports experiencing twitching, particularly when attempting to sleep, which has been attributed to restless leg syndrome. She is currently on ropinirole, which has shown some improvement in her symptoms, although she continues to experience random twitching in her bilateral upper extremities, including her hands and fingers. The patient denies any associated symptoms such as drooling or abnormal gait, which are often considered in the differential diagnosis of Parkinson's disease. She is very anxious about the possibility of a Parkinson's diagnosis, despite the absence of typical symptoms. A referral to neurology has been made for a comprehensive evaluation to rule out Parkinson's disease and other neurological conditions. In the interim, she has been advised to take magnesium oxide and a vitamin B complex at night to potentially alleviate her symptoms. Review of Systems - Neurological: Reports twitching, particularly at night. Denies drooling, abnormal gait, headaches, or blurred vision. Plan The patient has been referred to neurology for a comprehensive evaluation to rule out Parkinson's disease and other neurological conditions. In the meantime, she is advised to continue her current medication, ropinirole, for restless leg syndrome, which has shown some improvement in her symptoms. Additionally, she is instructed to take magnesium oxide and a vitamin B complex at night to potentially alleviate her symptoms. Discussion Notes I discussed with the patient her symptoms and the possibility of Parkinson's disease, although her symptoms do not fully align with this diagnosis. I have referred her to neurology for a full workup to ensure a comprehensive evaluation. In the meantime, I recommended continuing her current medication, ropinirole, and adding magnesium oxide and a vitamin B complex at night. Patient Instructions - Continue taking ropinirole as prescribed for restless leg syndrome. - Start taking magnesium oxide and a vitamin B complex at night. - Attend the neurology appointment for further evaluation. [facility] Medical History Fatty liver Abdominal pain, right lower quadrant Dense breast tissue on mammogram Surgical History (Updated 02/21/25 @ 11:45 by Lissette Hartman RN) Hx of dilation and curettage Hx of section H/O lumpectomy Hx of colonoscopy (~2013) Family History Mother Breast cancer Maternal Aunt Lung cancer Breast cancer Father CHF (congestive heart failure) Brother H/O cardiac radiofrequency ablation Social History Household Members: Spouse Housing: House Alcohol intake: current Alcohol intake frequency: does not drink Patient Tobacco Use Status: Never used Tobacco e-Cigarette/Vaping Use: Never Used service: No Current occupational status: employed 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 Current occupational exposures/hazards: No Cognitive needs: No Hearing needs: No Vision needs: Yes Questionnaire Thrive Questionnaire Date Thrive assessed: 10/13/24 I am a: Patient What is your living situation today?: I have a steady place to live Within the past 12 months, did the food you bought not last and you didn't have the money to get more?: Never true Within the past 12 months, did you worry whether your food would run out before you got money to buy more?: Never true Do you have trouble paying for medicines?: No Do you have trouble getting transportation to medical appointments?: No Do you have trouble paying your heating and electricity bill?: No Do you have trouble taking care of your child, family member or friend?: No Do you have trouble with day-to-day activities such as bathing, preparing meals, shopping, managing finances, etc.?: No Are you currently unemployed and looking for a job?: No Are you interested in more education?: No Please select the resources that you would like help with: None Currently or been in a relationship where the following occur: No concerns reported THRIVE Score: 0 KALEE-7 AMB Questionnaire KALEE-7 Date KALEE - 7 assessed: 05/17/24 Source: Developed by Drs. Manuel Yo, Margoth Dao Gardiner and colleagues, with an educational mary from [employer]. Physical exam (Primary Care) Tobacco/Smoking Status: Tobacco use Status Tobacco use date assessed 05/17/24 02/09/25 15:11 Patient Tobacco Use Status Never used Tobacco 02/21/25 13:39 e-Cigarette/Vaping Use Never Used 02/09/25 15:11 Thrive Assessment: Date of Thrive Assessment Date Thrive assessed 10/13/24 02/09/25 15:11 Currently or been in a relationship where the following occur: No concerns reported Telehealth Telehealth Telehealth Platform: [employer] Location of provider rendering services: practice address Location of patient: address on file Patient Identification confirmed using: Name, : Yes Telehealth method: video Patient verbally consented to treatment: Yes Patient verbally consented to billing insurance company: Yes Patient informed of any privacy concerns related to visit: Yes Minutes spent on Phone/Video with Pt.: 12 Coding Level of Care Code Tele Est Pt Level 3 (69983) Diagnoses Lower extremity neuropathy G57.90 Restless legs G25.81 Tremor R25.1 Assessment & Plan Assessment & Plan (1) Lower extremity neuropathy: Code(s): G57.90 - Unspecified mononeuropathy of unspecified lower limb Category: Medical (2) Restless legs: Code(s): G25.81 - Restless legs syndrome Category: Medical (3) Tremor: Code(s): R25.1 - Tremor, unspecified Category: Medical Plan .
== END 2025-04-04 07:59 | disposition home or self-care (01) ==
LOC: HO.HMCC 06:46
PROVIDERS: Visit Provider Nurse Practitioner Family
DX: G57.90 Unspecified mononeuropathy of unspecified lower limb (principal); G25.81 Restless legs syndrome

== ENCOUNTER 2025-04-06 12:20 | Outpatient (AMB) | payer BC, SELFPAY ==
--- NOTE | 2025-04-06 12:31 | MHC.OFFVIS ---
Vital Signs 04/06/25 12:34 Height 5 ft 9 in Weight 130 lb BMI 19.2 BP 130/72 Blood Pressure Location Rt brachial Position Sitting Pulse 69 Pulse Source Pulse Oximeter Pulse Oximetry (%) 97 Oxygen Delivery Method Room Air Intake Visit Reasons: INP - RLS, Tremor, Neuralgia and Neuritis Intake Note: Inpt for RLS, Tremor , Neuralgia and Neuritis occurring for several months and twitching Sheet Metal Apprentice Required: No Accompanied by: Spouse Allergies No Known Allergies (No Known Allergies*) Allergy (Verified 04/06/25 12:39) Medication List - Last Reconciled 04/06/25 by Yi Pardo MD calcium carbonate 600 mg PO BID gabapentin 100 mg PO BEDTIME ropinirole ER 2 mg PO .6pm HPI Comments Details: 64y/o female comes She was diagnosed with restless legs few months ago and is on ropinirole .she describes crawly sensations in her calf started few mths ago. she is on ropinirole XR 2mg qhs and is helping. the symptoms start after dinner when she is sitting to watch TV . she takes ropiniorle at 8PM Moving or reposition can help . she also reports abnormal jerks at night when she is sleeping that wakes her up- started few weeks ago . It can be whole body jerk . she also reports abnormal flutter, paresthesias in left 5th digit occasionally . she also reports discomfort - in her foot . 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 PFSH Medical History (Updated 04/06/25 @ 13:42 by Yi Pardo MD) Abnormal leg movement Restless legs syndrome (RLS) Hypersomnia Snoring Muscle cramps at night Fatty liver Abdominal pain, right lower quadrant Dense breast tissue on mammogram Surgical History Hx of dilation and curettage Hx of section H/O lumpectomy Hx of colonoscopy (~2013) Family History Mother Breast cancer Maternal Aunt Lung cancer Breast cancer Father CHF (congestive heart failure) Brother H/O cardiac radiofrequency ablation Social History Household Members: Spouse Housing: House Alcohol intake: current Alcohol intake frequency: does not drink Patient Tobacco Use Status: Never used Tobacco e-Cigarette/Vaping Use: Never Used service: No Current occupational status: employed 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 Current occupational exposures/hazards: No Cognitive needs: No Hearing needs: No Vision needs: Yes Physical Exam Vital Signs: Last Vital Signs Pulse 69 04/06/25 12:34 BP 130/72 04/06/25 12:34 Pulse Ox 97 04/06/25 12:34 Oxygen Delivery Method Room Air 04/06/25 12:34 BMI result Body Mass Index 19.2 Const General: cooperative, healthy appearing, comfortable and no acute distress Nutritional Appearance: average body habitus Orientation/consciousness: patient oriented x3 Eyes Pupils: Equal, round and reactive pupils present Neuro General: patient oriented x3, gait normal, tone normal, moves all extremities and no focal motor deficits Cranial nerves: Yes Facial sensation intact/muscles of mastication intact, Yes Equal, round and reactive pupils present, Yes Bilaterally intact EOM present, Yes Nystagmus not present, Yes Normal facial strength present, Yes Midline tongue present and Yes Ability to bilaterally elevate shoulders present Cognition (Neuro): normal cognition Gait exam (Neuro): Normal gait present Motor exam (neuro): 5/5 motor strength present throughout and Normal motor muscle tone present throughout Deep tendon reflexes (DTR's): Right triceps reflex intensity grade: 1+, Left triceps reflex intensity grade: 1+, Rt Biceps (C5, C6): 1+, Left biceps reflex intensity grade: 1+, Right brachioradialis reflex intensity grade: 1+, Left brachioradialis reflex intensity grade: 1+, Right patellar reflex intensity grade: 1+ and Left patellar reflex intensity grade: 1+ Coordination: [id number] test normal Results Reviewed Results Reviewed: NCS This is an abnormal study. 2. 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 Much more localizable on left side as left peroneal neuropathy at fibular neck. 3. There is no electrodiagnostic evidence for tibial neuropathy, lumbosacral plexopathy, lumbar radiculopathy, or peripheral neuropathy. Assessment & Plan Assessment & Plan (1) Restless legs syndrome (RLS): Code(s): G25.81 - Restless legs syndrome Category: Medical (2) Muscle cramps at night: Code(s): R25.2 - Cramp and spasm Category: Medical (3) Abnormal leg movement: Code(s): G25.9 - Extrapyramidal and movement disorder, unspecified Category: Medical Plan Reviewed labs PSG- to evaluate PLMD Start patient on gabapentin 100mg qhs Chnage ropinirole to XR 2mg q 6 pm Orders: Orders RT PSG in-lab sleep study Today G47.10 - Hypersomnia, unspecified, R06.83 - Snoring, R25.2 - Cramp and spasm Medications: New ropinirole ER 2 mg PO BEDTIME 60 tabs 6RF ropinirole ER 2 mg PO .6pm 60 tabs 6RF gabapentin 100 mg PO BEDTIME 30 caps 6RF Discontinued ropinirole administer 1-3 hours before bedtime Discontinued Reason: Doctor's Order 2 mg PO BEDTIME 30 days 30 tabs 1RF Coding Level of Care Code New Pt Level 4 (52473) Diagnoses Restless legs syndrome (RLS) G25.81 Muscle cramps at night R25.2 Abnormal leg movement G25.9
[2025-04-06 12:34] VITALS: BP 130/72; PULSE 69; O2SAT 97; BMI 19.2
--- OUTSIDE RECORDS SUMMARY | 2025-04-06 12:35 | XMS_ITS | Patient Health Record ---
Author Organization [facility] Address [address] [place] [address] Care Team Providers Care Underwriting Clerks Supervisor Name Role Phone Beverley (RETIRED) Brent BAINS [...] Problem Status W/U Status Risk Notes Problem [id number] Colon cancer screening (V76.51) Active confirmed Plan Of Treatment Future Test Test Name Order Date COLONOSCOPY 01/25/2014 Insurance Providers Payer Name Payer Address Payer Phone Subscriber Number Group Number Insured Name Patient Relationship to Insured Coverage Start Date Coverage End Date [facility] [address] [place] [address] [id number] MARGY BURNETTE Self - patient is the insured Medical (General) History Medical History History ICD Code Denies [place],DM,CVA,Lung disease,renal dise ase Surgical History Surgery Date(Month/Year) dilatation and curettage
== END 2025-04-06 13:19 | disposition home or self-care (01) ==
LOC: HO.HSMS 12:20
PROVIDERS: PCP Nurse Practitioner Family; Visit Provider Psychiatry & Neurology Neurology
DX: G25.81 Restless legs syndrome (principal); G25.9 Extrapyramidal and movement disorder, unspecified; R25.2 Cramp and spasm
CPT/HCPCS: 99204

== ENCOUNTER → 2025-05-03 20:30 | Outpatient (REF) | payer BC, SELFPAY ==
--- OUTSIDE RECORDS SUMMARY | 2025-05-03 20:54 | XMS_ITS | Patient Health Record ---
Author Organization [facility] Address [address] [place] [address] Care Team Providers Care Drain Tiler Name Role Phone Beverley (RETIRED) Brent BAINS [...] Problem Status W/U Status Risk Notes Problem [id number] Colon cancer screening (V76.51) Active confirmed Plan Of Treatment Future Test Test Name Order Date COLONOSCOPY 01/25/2014 Insurance Providers Payer Name Payer Address Payer Phone Subscriber Number Group Number Insured Name Patient Relationship to Insured Coverage Start Date Coverage End Date [facility] [address] [place] [address] [id number] MARGY BURNETTE Self - patient is the insured Medical (General) History Medical History History ICD Code Denies [place],DM,CVA,Lung disease,renal dise ase Surgical History Surgery Date(Month/Year) dilatation and curettage
== END ==
LOC: HO.SL 20:30
PROVIDERS: PCP Nurse Practitioner Family; Visit Provider Psychiatry & Neurology Neurology
DX: G47.10 Hypersomnia, unspecified (principal); R25.2 Cramp and spasm; R06.83 Snoring
CPT/HCPCS: 95810

== ENCOUNTER → 2025-05-03 20:46 | Outpatient (BNV) | payer BC, SELFPAY | PROVIDERS: PCP Nurse Practitioner Family; Visit Provider Psychiatry & Neurology Neurology | DX: G47.10 Hypersomnia, unspecified (principal) | CPT/HCPCS: 95810 ==

== ENCOUNTER 2025-06-01 09:11 | Outpatient (AMB) | payer BC, SELFPAY ==
[2025-06-01 09:15] VITALS: BP 122/80; PULSE 62; RESP 16; TEMP 36.8; O2SAT 99; BMI 17.7
--- NOTE | 2025-06-01 09:15 | MHC.PC.OV ---
Vital Signs 06/01/25 09:15 Height 5 ft 9 in Weight 120 lb BMI 17.7 BP 122/80 Blood Pressure Location Lt brachial Position Sitting Respiration 16 Pulse 62 Pulse Source Pulse Oximeter Temp 98.2 F Temp Source Oral Pulse Oximetry (%) 99 Oxygen Delivery Method Room Air Intake Visit Reasons: Annual PE Multimedia Production Assistant Required: No Allergies No Known Allergies (No Known Allergies*) Allergy (Verified 06/01/25 09:27) Tobacco use date assessed: 06/01/25 Dental Screening Dental Screen Date: 06/01/25 Did you have a dental visit in the last 12 months?: Yes Did you have a dental problem in the last 6 months where you did not have access to dental care?: No Was dental information given to patient?: Patient has dentist HPI Annual PE HPI Details History of Present Illness The patient is a 64-year-old female presenting with a physical exam and management of her chronic conditions. Her has been recently diagnosed with gastric cancer and is currently dealing with this condition. The patient also reports having several neuropathies and has consulted with both a associate financial analyst and a neurologist for these issues. She experiences sensations described as 'zings' in her calves, feet, and right upper extremity, along with occasional twitching. taking mag nightly, will add on vitamin b complex Recently, she was diagnosed with restless leg syndrome and is currently on Ropinirole, which has been somewhat beneficial in managing her symptoms. She has been evaluated by hematology for leukopenia and by urology for microscopic hematuria. Her preventative care is up to date, including mammogram and colon screening. 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 -denies any fevers, chills, n/v, abd pain, blood in stool, constipation, diarrhea, SI or HI Physical Exam General: Cooperative, healthy appearing, comfortable, no acute distress and well developed Orientation: Patient oriented x3 Limitations: No limitations Head: Normal to inspection Ears: Hearing grossly normal bilaterally Nose: Normal external nose present Face and sinus: Normal facial exam Eyes: Appearance normal, both eyes and all related structures Neck: Normal visual inspection and Yes full ROM Respiratory: Normal respiratory effort and able to speak in complete sentences. Clear to auscultation bilaterally Cardiovascular: Regular rate and rhythm. Normal S1 and S2 GI: Normal to inspection. Soft to palpation and nontender Skin: No rashes or lesions noted Neuro: Patient oriented x3. + sensation to BLE, + patellar reflexes Extremities: Normal to inspection, except for twitching sometimes in right upper extremity Results Plan 1. Neuropathies The patient has consulted with a associate financial analyst and a neurologist for her neuropathies, experiencing sensations described as 'zings' and occasional twitching. 2. Restless Leg Syndrome The patient is on Ropinirole for restless leg syndrome, which has been effective in symptom management. 3. Leukopenia The patient has been evaluated by hematology for leukopenia. 4. Microscopic Hematuria The patient has been evaluated by urology for microscopic hematuria. Discussion Notes labs ordered [facility] Medical History Abnormal leg movement Restless legs syndrome (RLS) Hypersomnia Snoring Muscle cramps at night Fatty liver Abdominal pain, right lower quadrant Dense breast tissue on mammogram Surgical History Hx of dilation and curettage Hx of section H/O lumpectomy Hx of colonoscopy (~2013) Family History Mother Breast cancer Maternal Aunt Lung cancer Breast cancer Father CHF (congestive heart failure) Brother H/O cardiac radiofrequency ablation Social History Household Members: Spouse Housing: House Alcohol intake: current Alcohol intake frequency: does not drink Patient Tobacco Use Status: Never used Tobacco e-Cigarette/Vaping Use: Never Used service: No Current occupational status: employed 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 1. Little interest or pleasure in doing things: not at all 2. Feeling down, depressed, or hopeless: not at all 3. Trouble falling or staying asleep, or sleeping too much: not at all 4. Feeling tired or having little energy: not at all 5. Poor appetite or overeating: not at all 6. Feeling bad about yourself - or that you are a failure or have let yourself or your family down: not at all 7. Trouble concentrating on things, such as reading the newspaper or watching television: not at all 8. Moving or speaking so slowly that other people could have noticed. Or the opposite - being so fidgety or restless that you have been moving around a lot more than usual: not at all 9. Thoughts that you would be better off or of hurting yourself in some way: not at all Total score: 0 Depression Screening Interpretation: Negative Depression Screening Done: Yes 66481 - PHQ-9 Billing: Yes Source: Developed by Drs. Manuel Yo, Margoth Raines, Dao Escobar and colleagues, with an educational mary from [employer]. Thrive Questionnaire Date Thrive assessed: 10/13/24 I am a: Patient What is your living situation today?: I have a steady place to live Within the past 12 months, did the food you bought not last and you didn't have the money to get more?: Never true Within the past 12 months, did you worry whether your food would run out before you got money to buy more?: Never true Do you have trouble paying for medicines?: No Do you have trouble getting transportation to medical appointments?: No Do you have trouble paying your heating and electricity bill?: No Do you have trouble taking care of your child, family member or friend?: No Do you have trouble with day-to-day activities such as bathing, preparing meals, shopping, managing finances, etc.?: No Are you currently unemployed and looking for a job?: No Are you interested in more education?: No Please select the resources that you would like help with: None Currently or been in a relationship where the following occur: No concerns reported THRIVE Score: 0 KALEE-7 AMB Questionnaire KALEE-7 Date KALEE - 7 assessed: 06/01/25 Feeling nervous, anxious, or on edge: 1 = Several days Not being able to stop or control worryin = Several days Worrying too much about different things: 1 = Several days Trouble relaxin = Not at all Being so restless that it is hard to sit still: 0 = Not at all Becoming easily annoyed or irritable: 0 = Not at all Feeling afraid as if something awful might happen: 1 = Several days Total KALEE-7 score (0-4 normal; 5-9 mild; 10-14 moderate; 15-21 severe): 4 Source: Developed by Drs. Manuel Yo, Margoth Raines, Dao Escobar and colleagues, with an educational mary from [employer]. KALEE-7 Assessment Billing KALEE-7 Assessment Tool: KALEE-7 Assessment 53319 Physical exam (Primary Care) Vital Signs: Last Vital Signs Temp 98.2 F 06/01/25 09:15 Pulse 62 06/01/25 09:15 Resp 16 06/01/25 09:15 BP 122/80 06/01/25 09:15 Pulse Ox 99 06/01/25 09:15 Oxygen Delivery Method Room Air 06/01/25 09:15 BMI result Body Mass Index 17.7 Tobacco/Smoking Status: Tobacco use Status Tobacco use date assessed 06/01/25 06/01/25 09:17 Patient Tobacco Use Status Never used Tobacco 06/01/25 09:17 e-Cigarette/Vaping Use Never Used 06/01/25 09:17 PHQ-9: PHQ-9 Score PHQ-9: Total score 0 06/01/25 09:17 Depression Screening Interpretation: Negative Thrive Assessment: Date of Thrive Assessment Date Thrive assessed 10/13/24 06/01/25 09:17 Currently or been in a relationship where the following occur: No concerns reported Coding Level of Care Code Est Pt Prev Care 40-64y(84879) Diagnoses Encounter for routine adult physical exam with abnormal findings Z. Restless legs syndrome (RLS) G25.81 Osteoporosis M81.0 Additional Codes KALEE-7 Assessment Billing - KALEE-7 Assessment Tool: KALEE-7 Assessment 84984 ([id number]) PHQ-9 - 34918 - PHQ-9 Billing: Yes ([id number]) Assessment & Plan Assessment & Plan (1) Encounter for routine adult physical exam with abnormal findings: Code(s): Z00.01 - Encounter for general adult medical examination with abnormal findings Category: Medical (2) Restless legs syndrome (RLS): Code(s): G25.81 - Restless legs syndrome Category: Medical (3) Osteoporosis: Code(s): M81.0 - Age-related osteoporosis without current pathological fracture Category: Medical Plan . Orders: Orders Comprehensive [place]. Panel Fast Today Z00. - Encounter for general adult medical examination with abnormal findings Complete Blood Count Auto Diff Today Z00. - Encounter for general adult medical examination with abnormal findings TSH reflex Free T4 Today Z00. - Encounter for general adult medical examination with abnormal findings UA CC w/rflx Micro + Cult Today Z00. - Encounter for general adult medical examination with abnormal findings Lipid Panel Today Z00.01 - Encounter for general adult medical examination with abnormal findings Vitamin D 25-OH Total Today M81.0 - Age-related osteoporosis without current pathological fracture, Z00.01 - Encounter for general adult medical examination with abnormal findings
--- OUTSIDE RECORDS SUMMARY | 2025-06-01 09:58 | XMS_ITS | Patient Health Record ---
Author Organization [facility] Address [address] [place] [address] Care Team Providers Care Ground Systems Engineer Name Role Phone Beverley (RETIRED) Brent BAINS [...] Problem Status W/U Status Risk Notes Problem [id number] Colon cancer screening (V76.51) Active confirmed Plan Of Treatment Future Test Test Name Order Date COLONOSCOPY 01/25/2014 Insurance Providers Payer Name Payer Address Payer Phone Subscriber Number Group Number Insured Name Patient Relationship to Insured Coverage Start Date Coverage End Date [facility] [address] [place] [address] [id number] MARGY BURNETTE Self - patient is the insured Medical (General) History Medical History History ICD Code Denies [place],DM,CVA,Lung disease,renal dise ase Surgical History Surgery Date(Month/Year) dilatation and curettage
== END 2025-06-01 10:05 | disposition home or self-care (01) ==
LOC: HO.HMCC 09:11
PROVIDERS: PCP Nurse Practitioner Family; Visit Provider Nurse Practitioner Family
DX: Z00.01 Encounter for general adult medical examination with abnormal findings (principal); G25.81 Restless legs syndrome; M81.0 Age-related osteoporosis without current pathological fracture

== ENCOUNTER → 2025-06-01 09:11 | Outpatient (BNVA) | payer BC, SELFPAY | PROVIDERS: PCP Nurse Practitioner Family; Visit Provider Nurse Practitioner Family | DX: Z00.01 Encounter for general adult medical examination with abnormal findings (principal); G25.81 Restless legs syndrome; G62.9 Polyneuropathy, unspecified; D72.819 Decreased white blood cell count, unspecified; R31.29 Other microscopic hematuria; M81.0 Age-related osteoporosis without current pathological fracture | CPT/HCPCS: 96127 ==

== ENCOUNTER 2025-07-07 08:27 | Outpatient (REF) | payer BC, SELFPAY ==
--- NOTE | ~2025-07-07 | US_ITS ---
EXAMINATION: US THYROID HISTORY: E04.1 - Nontoxic single thyroid nodule TECHNIQUE: Real-time grayscale ultrasound imaging was performed and images were reviewed. COMPARISON: Jeevan is made with the prior examination dated 06/02/2024. FINDINGS: SIZE: The right thyroid lobe measures 5.8 x 2.1 x 2.3 cm. The left thyroid lobe measures 4.9 x 1.5 x 1.2 cm. The isthmus measures 2 mm. FLOW: Flow to the gland is increased. ECHOGENICITY: The echotexture of the gland is homogeneous. NODULES: Again seen is a dominant nodule on the right as described below: Nodule #: 1 Location: Midportion of the right thyroid lobe measuring 3.1 x 1.6 x 1.9 cm (previously 2.7 x 1.3 x 1.9 cm). Shape: Wider than tall (0 points) Margins: Smooth (0 points) Echotexture: Isoechoic (1 point) Composition: Mostly solid (2 points) Calcifications: Punctate calcifications (3 points) Total points: 6 TIRADS: TR4: Moderately suspicious. US/US thyroid IMPRESSION: Slight interval increase in size of the previously seen nodule at the lower pole of the right thyroid lobe. This was previously biopsied on 07/27/2024 and shown to be benign. ACR TI-RADS Guidelines TR1 (0 points): Benign. No follow-up or biopsy required TR2 (2 points): Not Suspicious. No biopsy or follow up indicated TR3 (3 points): Mildly Suspicious. FNA if >= 2.5 cm, Follow if >= 1.5 cm TR4 (4-6 points): Moderately Suspicious. FNA if >= 1.5 cm, Follow if >= 1.0 cm TR5 (>=7 points): Highly Suspicious. FNA if >= 1.0 cm, Follow if >= 0.5 cm Electronically signed by: Manuel Page MD 07/07/2025 09:02 AM [facility] [place]
--- OUTSIDE RECORDS SUMMARY | 2025-07-07 08:56 | XMS_ITS | Patient Health Record ---
Author Organization [facility] Address [address] [place] [address] Care Team Providers Care Emblem Cutter Name Role Phone Beverley (RETIRED) Brent BAINS Primary Care Provide r Unavailable Chad Rosenthal Jr Unavailable Reason For Referral No Information Medications Medication SIG (Take, Route, Fr equency, Duration) Notes Start Date End Date Status MoviPrep 100 GM as directed before c olonoscopy Orally; Duration: 1 dose 01/25/2014 Active Problems Problem Type SNOMED Code ICD Code Onset Dates Problem Status W/U Status Risk Notes Problem Colon cancer screening ([id number]) Colon cancer screening (V76.51) Active confirmed Plan Of Treatment Future Test Test Name Order Date COLONOSCOPY 01/25/2014 Insurance Providers Payer Name Payer Address Payer Phone Subscriber Number Group Number Insured Name Patient Relationship to Insured Coverage Start Date Coverage End Date [facility] [address] [place] [address] [id number] MARGY BURNETTE Self - patient is the insured Medical (General) History Medical History History ICD Code Denies [place],DM,CVA,Lung disease,renal dise ase Surgical History Surgery Date(Month/Year) dilatation and curettage
== END 2025-07-07 08:28 | disposition home or self-care (01) ==
LOC: HO.HMGCX 08:27
PROVIDERS: PCP Nurse Practitioner Family; Visit Provider Student in an Organized Health Care Education/Training Program
DX: E04.1 Nontoxic single thyroid nodule (principal)
CPT/HCPCS: 76536

== ENCOUNTER → 2025-07-07 08:29 | Outpatient (BNV) | payer BC, SELFPAY | PROVIDERS: PCP Nurse Practitioner Family; Visit Provider Radiology Diagnostic Radiology | DX: E04.1 Nontoxic single thyroid nodule (principal) | CPT/HCPCS: 76536 ==

== ENCOUNTER 2025-07-25 15:51 | Outpatient (AMB) | payer BC, SELFPAY ==
[2025-07-25 15:54] VITALS: BP 124/70; PULSE 53; O2SAT 99; BMI 18.5
--- NOTE | 2025-07-25 15:54 | MHC.OFFVIS ---
Vital Signs 07/25/25 15:54 Height 5 ft 9 in Weight 125 lb 4 oz BMI 18.5 BP 124/70 Blood Pressure Location Rt brachial Position Sitting Pulse 53 Pulse Source Pulse Oximeter Pulse Oximetry (%) 99 Oxygen Delivery Method Room Air Intake Visit Reasons: Emphysema Allergies No Known Allergies (No Known Allergies*) Allergy (Verified 07/25/25 15:56) HPI HPI Emphysema: Details: Beverly is a pleasant 64 year old female, never smoker, with underlying asthma COPD overlap syndrome. At the last visit, she reported engaging in an active lifestyle however inability to sustain a fast pace, otherwise denied any respiratory symptoms that limit her exercise tolerance or interfere with activities of daily living. She had trialed Symbicort previously with no change in symptoms while exercising. She currently denies any dyspnea, wheezing or chest tightness however does report persistent throat clearing over the last 2-3 months. Of note, she was recently started on PPI for reflux, not following reflux diet and this may be contributing to her symptoms. She denies any significant triggers but reports at night she has increase throat clearing. She feels as though she has some mucus stuck in her throat but denies any nasal or chest congestion. She endorses intermittent postnasal drip and previously environmental allergies. She denies any recent allergy testing and has not trialed any bezk-hwp-dfrhlio medications to alleviate symptoms. [facility] Medical History Abnormal leg movement Restless legs syndrome (RLS) Hypersomnia Snoring Muscle cramps at night Fatty liver Abdominal pain, right lower quadrant Dense breast tissue on mammogram Surgical History Hx of dilation and curettage Hx of section H/O lumpectomy Hx of colonoscopy (~2013) Family History Mother Breast cancer Maternal Aunt Lung cancer Breast cancer Father CHF (congestive heart failure) Brother H/O cardiac radiofrequency ablation Social History (Updated 07/25/25 @ 15:56 by Jeanine Gilmore [facility]) Household Members: Spouse Housing: House Alcohol intake: current Alcohol intake frequency: does not drink Patient Tobacco Use Status: Former Tobacco user e-Cigarette/Vaping Use: Never Used service: No Current occupational status: employed 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 Current occupational exposures/hazards: No Cognitive needs: No Hearing needs: No Vision needs: Yes Review of Systems Const Denies chills, Denies excessive sweating, Denies fever(s), Denies headache(s) and Denies night sweats Eyes Denies dry eyes, Denies irritation and Denies itchy eyes ENT Reports Normal hearing present, Denies headache(s), Denies nasal congestion, Denies nasal discharge and Denies sore throat Card Denies chest pain, Denies chest pain at rest, Denies chest pain with activity, Denies claudication, Denies leg edema, Denies dyspnea, Denies dyspnea on exertion, Denies orthopnea and Denies paroxysmal nocturnal dyspnea Resp Denies chest congestion, Denies cough, Denies pain on inspiration, Denies pain with cough, Denies dyspnea, Denies dyspnea on exertion, Denies stridor and Denies wheezing Musc Denies myalgias Neuro Reports Normal hearing present and Denies headache(s) Endo Denies excessive sweating Rufino/Lymph Denies lymphadenopathy Aller/Immun Denies itchy eyes, Denies seasonal rhinorrhea and Denies wheezing Physical Exam Vital Signs: Last Vital Signs Pulse 53 07/25/25 15:54 BP 124/70 07/25/25 15:54 Pulse Ox 99 07/25/25 15:54 Oxygen Delivery Method Room Air 07/25/25 15:54 BMI result Body Mass Index 18.5 Const General: cooperative, healthy appearing, comfortable, no acute distress, well developed and alert Nutritional Appearance: thin Orientation/consciousness: patient oriented x3 Limitations: no limitations HEENT Head: Yes normal to inspection, Yes normocephalic and Yes atraumatic Ears: hearing grossly normal bilaterally and external ears normal Eyes General: appearance normal, both eyes and all related structures Eyelids: Yes eyelids normal Sclerae: sclerae normal EOM: EOMs intact bilaterally Neck Neck: Yes normal visual inspection and Yes no lymphadenopathy Lymphatic: no lymphadenopathy noted Chest Chest palpation & inspection: normal inspection of the chest Resp Effort & Inspection: normal respiratory effort, able to speak in complete sentences, no audible wheezes, no cough, no stridor, not tachypneic, no tripod positioning and no use of accessory muscles Auscultation: clear to auscultation bilaterally Cardio Jugular venous distension: no JVD Rate: regular rate Rhythm: regular rhythm Skin Other: warm, dry General skin exam: no rashes or lesions noted Neuro General: patient oriented x3 Cranial nerves: Yes Normal hearing present Cognition (Neuro): normal cognition Gait exam (Neuro): Normal gait present Extrem General: Yes normal to inspection, Yes capillary refill normal, Yes no clubbing, cyanosis or edema and Yes no pedal edema Psych Appearance: grossly normal and well kempt Speech and movement: Normal speech and movement present and Clear speech present Affect: normal affect Attitude: cooperative Thought process: Normal thought process present Thought content: Normal thought content present Insight: Good insight present (Psych) Judgement: Good judgement present (Psych) Assessment & Plan Assessment & Plan (1) Asthma-COPD overlap syndrome: Code(s): J44.89 - Other specified chronic obstructive pulmonary disease Category: Medical (2) Emphysema of lung: Code(s): J43.9 - Emphysema, unspecified Category: Medical Plan Discuss the possible underlying causes of persistent throat clearing including environmental allergies as well as reflux. Will send for RAST testing and encouraged patient to use a humidifier maintaining humidity less than 50%. If significant allergic component will consider daily antihistamine versus nasal sprays. We also reviewed a reflux diet, including compliance with PPI, considering a wedge pillow and avoiding food 2-3 hours prior to bedtime. She is aware to call if symptoms change. All questions were answered and patient is in agreement of plan. Will follow up to review results or sooner if needed. Orders: Orders Resp Allergy Profile Region I 07/25/25 Z91.09 - Other allergy status, other than to drugs and biological substances Immunoglobulin E 07/25/25 Z91.09 - Other allergy status, other than to drugs and biological substances Complete Blood Count Auto Diff 07/25/25 Z91.09 - Other allergy status, other than to drugs and biological substances Coding Level of Care Code Est Pt Level 4 (28170) Diagnoses Asthma-COPD overlap syndrome J44.89 Emphysema of lung J43.9
--- OUTSIDE RECORDS SUMMARY | 2025-07-25 19:20 | XMS_ITS | Patient Health Record ---
Author Organization [facility] Address [address] [place] [address] Care Team Providers Care Audio Visual Tech Name Role Phone Beverley (RETIRED) Brent BAINS Primary Care Provide r Unavailable Chad Rosenthal Jr Unavailable [phone] Reason For Referral No Information Medications Medication SIG (Take, Route, Frequency, Duration) Notes Start Date End Date Status MoviPrep 100 GM Solution Reconstituted as directed before colonoscopy Orally; Duration: 1 dose 01/25/2014 Active Social History Social History Additional Details Category Social Info Options Details Miscellaneous: Marital status: 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 Problems Problem Type SNOMED Code ICD Code Onset Dates Problem Status W/U Status Risk Notes Problem Colon cancer screening ([id number]) Colon cancer screening (V76.51) Active confirmed Plan Of Treatment Future Test Test Name Order Date COLONOSCOPY 01/25/2014 Insurance Providers Payer Name Payer Address Payer Phone Subscriber Number Group Number Insured Name Patient Relationship to Insured Coverage Start Date Coverage End Date [facility] [address] [place] [address] [id number] MARGY BURNETTE Self - patient is the insured Medical (General) History Medical History History ICD Code Denies [place],DM,CVA,Lung disease,renal dise ase Surgical History Surgery Date(Month/Year) dilatation and curettage
== END 2025-07-25 16:15 | disposition home or self-care (01) ==
LOC: HO.HPSW 15:52
PROVIDERS: PCP Nurse Practitioner Family; Visit Provider Nurse Practitioner Family
DX: J44.89 Other specified chronic obstructive pulmonary disease (principal); J43.9 Emphysema, unspecified
CPT/HCPCS: 99214

== ENCOUNTER 2025-08-04 08:23 | Outpatient (REF) | payer BC, SELFPAY ==
[2025-08-04 10:09] LABS: MANUAL DIFF FLAG NO
[2025-08-04 10:23] LABS: Hematocrit 40.0 % (37.0-47.0); Hemoglobin 12.9 g/dl (12.0-16.0); Imm Gran Abs Auto 0.01 X10*3/uL (0.00-0.03); Imm Gran Pct Auto 0.3 % (0.0-0.4); Lymphocytes Absolute Auto 1.2 X10*3/uL (1.2-4.9); Mean Corpuscular HGB Conc 32.3 g/dl (31.0-35.0); Mean Corpuscular Hemoglobin 29.5 pg (27.0-33.0); Mean Corpuscular Volume 91.5 fL (80.0-98.0); NRBC Abs Auto 0.000 X10*3/uL (0.0-0.012); NRBC Pct Auto 0.0 /100WBC (0.0-0.2); Platelet Count 260 X10*3/uL (160-400); Red Blood Count 4.37 X10*6/uL (4.20-5.50); White Blood Count 4.0 X10*3/uL (4.8-10.8)
[2025-08-04 10:28] LABS: Appearance Urine Clear; Glucose Urine UA Negative (Negative); PH 5.5 (5.0-9.0); Specific Gravity - Urine 1.015 (1.005-1.025); UMIC TRIGGER UACC YES
[2025-08-04 10:41] LABS: Alanine Aminotransferase 22 U/L (0-31); Albumin Level 4.8 g/dL (3.5-5.0); Alkaline Phosphatase 58 U/L (39-117); Anion Gap 11 (12-20); Aspartate Amino Transferase 30 U/L (5-31); Blood Urea Nitrogen 24 mg/dL (9-16); Calcium 9.9 mg/dL (8.4-10.2); Carbon Dioxide 29 mmol/L (22-29); Chloride 108 mmol/L (96-108); Cholesterol 254 mg/dL (<200); Estimated Glomerular Filt Rate 48; HDL Cholesterol 81 mg/dL (>40); Potassium 4.1 mmol/L (3.3-5.1); Sodium 144 mmol/L (135-145); Total Protein 7.5 g/dL (6.5-8.0); Triglycerides 87 mg/dL (<150)
[2025-08-04 11:00] LABS: Free T4 (Free Thyroxine) 1.01 ng/dL (0.71-1.85)
[2025-08-04 11:06] LABS: Thyroid Stimulating Hormone 1.16 uIU/mL (0.32-4.0)
[2025-08-08 22:43] LABS: Class Alternaria alternata 0; Class Aspergillus fumigatus 0; Class Bermuda Grass 0; Class Birch 0; Class Cat Dander 0; Class Cladosporium herbarum 0; Class Cockroach 0; Class Common Ragweed 0; Class Cottonwood 0; Class Derm. pterony 2; Class Dermatophagoides farinae 2; Class Dog Dander 0; Class Elm 0; Class Maple Box Elder 0; Class Mountain Cedar 0; Class Mouse Urine Protein 0; Class Mugwort 0; Class Oak 0; Class Penicillium crysogenum 0; Class Rough Pigweed 0; Class Sheep Sorrel 0; Class Sycamore 0; Class Timothy Grass 0; Class Walnut Tree 0; Class White Ash 0; Class White Mulberry 0; D002 - IgE D farinae 2.26 kU/L; E001 - IgE Cat Dander <0.10 kU/L; E005 - IgE Dog Dander <0.10 kU/L; G006 - IgE Timothy Grass <0.10 kU/L; I006-IgE Cockroach, German <0.10 kU/L; M002 - IgE Cladosporium herbar <0.10 kU/L; M003 - IgE Aspergillus fumigat <0.10 kU/L; M006 - IgE Alternaria alternat <0.10 kU/L; T001 IgE Maple/Box Elder <0.10 kU/L; T006 - IgE Cedar, Mountain <0.10 kU/L; T007 - IgE Oak, White <0.10 kU/L; T008 IgE Elm, American <0.10 kU/L; T010 - IgE Walnut <0.10 kU/L; T011 - IgE Maple Leaf Sycamore <0.10 kU/L; T014 - IgE Cottonwood <0.10 kU/L; T015 - IgE Ash, White <0.10 kU/L; T070 - IgE White Mulberry <0.10 kU/L; W001 - IgE Ragweed, Short <0.10 kU/L; W006 - IgE Mugwort <0.10 kU/L; W014 IgE Pigweed, Common <0.10 kU/L; W018 IgE Sheep Sorrel <0.10 kU/L
== END 2025-08-04 08:24 | disposition home or self-care (01) ==
LOC: HO.HMGCLDS 08:23
PROVIDERS: Absent Provider Nurse Practitioner Family; PCP Nurse Practitioner Family; Referring Provider Student in an Organized Health Care Education/Training Program; Visit Provider Nurse Practitioner Family
DX: Z00.00 Encounter for general adult medical examination without abnormal findings (principal); M81.0 Age-related osteoporosis without current pathological fracture; E04.1 Nontoxic single thyroid nodule; Z91.09 Other allergy status, other than to drugs and biological substances; Z13.6 Encounter for screening for cardiovascular disorders
CPT/HCPCS: 36415; 80053; 80061; 81001; 82306; 82785; 84439; 84443; 85025; 86003

== ENCOUNTER 2025-08-07 07:53 | Outpatient (AMB) | payer BC, SELFPAY ==
--- NOTE | 2025-08-07 07:56 | A.OFFVIS_ITS ---
Vital Signs 08/07/25 07:57 Height 5 ft 9 in Weight 124 lb BMI 18.3 BP 132/80 Blood Pressure Location Rt brachial Position Sitting Pulse 55 Pulse Source Pulse Oximeter Pulse Oximetry (%) 99 Oxygen Delivery Method Room Air Intake Visit Reasons: 4 mo follow up Intake Note: Follow up Abnormal leg movement, RLS and pain Rt leg Work Adjustment Instructor Required: No Accompanied by: Self / Same As Patient Allergies No Known Allergies (No Known Allergies*) Allergy (Verified 08/07/25 07:57) HPI Comments Details: 64y/o female comes for follow up. she is doing better. she is still on ropinirole Xr 2mg and did not start gabapentin. She was diagnosed with restless legs few months ago and is on ropinirole .she describes crawly sensations in her calf started few mths ago. . the symptoms start after dinner when she is sitting to watch TV . she takes ropiniorle at 8PM Moving or reposition can help . she also reports abnormal jerks at night when she is sleeping that wakes her up- started few weeks ago . It can be whole body jerk . she also reports abnormal flutter, paresthesias in left 5th digit occasionally . she also reports discomfort - in her foot . 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- she is doing better with avoiding crossing legs and pressure PFSH Medical History Abnormal leg movement Restless legs syndrome (RLS) Hypersomnia Snoring Muscle cramps at night Fatty liver Abdominal pain, right lower quadrant Dense breast tissue on mammogram Surgical History Hx of dilation and curettage Hx of section H/O lumpectomy Hx of colonoscopy (~2013) Family History Mother Breast cancer Maternal Aunt Lung cancer Breast cancer Father CHF (congestive heart failure) Brother H/O cardiac radiofrequency ablation Social History Household Members: Spouse Housing: House Alcohol intake: current Alcohol intake frequency: does not drink Patient Tobacco Use Status: Former Tobacco user e-Cigarette/Vaping Use: Never Used service: No Current occupational status: employed 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 Current occupational exposures/hazards: No Cognitive needs: No Hearing needs: No Vision needs: Yes Physical Exam Vital Signs: Last Vital Signs Pulse 55 08/07/25 07:57 BP 132/80 08/07/25 07:57 Pulse Ox 99 08/07/25 07:57 Oxygen Delivery Method Room Air 08/07/25 07:57 BMI result Body Mass Index 18.3 Const General: cooperative, healthy appearing, comfortable and no acute distress Nutritional Appearance: average body habitus Orientation/consciousness: patient oriented x3 Eyes Pupils: Equal, round and reactive pupils present Neuro General: patient oriented x3, gait normal, tone normal, moves all extremities and no focal motor deficits Cranial nerves: Yes Facial sensation intact/muscles of mastication intact, Yes Equal, round and reactive pupils present, Yes Bilaterally intact EOM present, Yes Nystagmus not present, Yes Normal facial strength present, Yes Midline tongue present and Yes Ability to bilaterally elevate shoulders present Cognition (Neuro): normal cognition Gait exam (Neuro): Normal gait present Motor exam (neuro): 5/5 motor strength present throughout and Normal motor muscle tone present throughout Coordination: [id number]-bi-[id number] test normal Assessment & Plan Assessment & Plan (1) Restless legs syndrome (RLS): Code(s): G25.81 - Restless legs syndrome Category: Medical (2) Muscle cramps at night: Code(s): R25.2 - Cramp and spasm Category: Medical (3) Abnormal leg movement: Code(s): G25.9 - Extrapyramidal and movement disorder, unspecified Category: Medical Plan Reviewed labs PSG- normal Continue gabapentin 100mg qhs as needed ropinirole to XR 2mg q 6 pm Coding Level of Care Code Est Pt Level 4 (44836) Complex visit Add On G2211 Diagnoses Restless legs syndrome (RLS) G25.81 Muscle cramps at night R25.2 Abnormal leg movement G25.9
[2025-08-07 07:57] VITALS: BP 132/80; PULSE 55; O2SAT 99; BMI 18.3
--- OUTSIDE RECORDS SUMMARY | 2025-08-07 08:00 | XMS_ITS | Patient Health Record ---
Author Organization [facility] Address [address] [place] [address] Care Team Providers Care Clinical Engineering Manager Name Role Phone Beverley (RETIRED) Brent BAINS [...] Status Risk Notes Problem Colon cancer screening ([id number]) Colon cancer screening (V76.51) Active confirmed Plan Of Treatment Future Test Test Name Order Date COLONOSCOPY 01/25/2014 Insurance Providers Payer Name Payer Address Payer Phone Subscriber Number Group Number Insured Name Patient Relationship to Insured Coverage Start Date Coverage End Date [facility] [address] [place] [address] [id number] MARGY BURNETTE Self - patient is the insured Medical (General) History Medical History History ICD Code Denies [place],DM,CVA,Lung disease,renal dise ase Surgical History Surgery Date(Month/Year) dilatation and curettage
== END 2025-08-07 08:22 | disposition home or self-care (01) ==
LOC: HO.HSMS 07:54
PROVIDERS: PCP Nurse Practitioner Family; Visit Provider Psychiatry & Neurology Neurology
DX: G25.81 Restless legs syndrome (principal); R25.2 Cramp and spasm; G25.9 Extrapyramidal and movement disorder, unspecified
CPT/HCPCS: 99214

== ENCOUNTER 2025-08-11 14:21 | Outpatient (AMB) | payer BC, SELFPAY ==
[2025-08-11 14:26] VITALS: BP 132/78; PULSE 64; O2SAT 100; BMI 18.2
--- NOTE | 2025-08-11 14:26 | A.OFFVIS_ITS ---
Vital Signs 3 08/11/25 14:26 Height 5 ft 9 in Weight 123 lb 7.342 oz BMI 18.2 BP 132/78 Blood Pressure Location Rt brachial Position Sitting Pulse 64 Pulse Source Pulse Oximeter Pulse Oximetry (%) 100 Intake Visit Reasons: Thyroid nodule Intake Note: Patient presents here today for Thyroid Nodules follow-up after completion of work-up. Last seen by Dr Kye MD: * Thyroid Ultrasound: Completed on 07/07/2025 * Thyroid Function Tests: Labs Completed on 08/04/2025 L Coat Finisher Required: No Accompanied by: Self / Same As Patient Allergies No Known Allergies (No Known Allergies*) Allergy (Verified 08/11/25 14:28) HPI Comments Details: 63-year-old female here today for follow up of solitary right-sided thyroid nodule. HPI from prior visit Palpated on physical exam. No prior history. Ultrasound May 2024, I reviewed the images myself which showed a solitary right mid/lower lobe thyroid nodule measuring 2.7 cm in the largest dimension, solid, isoechoic, with macrocalcifications, TR 4 category. Meets criteria for FNA. 07/27/2024: Underwent biopsy of the right mid/lower 2.7 cm nodule which came back with benign cytology ([place] category 2). Patient currently denies heat or cold intolerance, diarrhea or constipation, hair loss, palpitation, anxiety, mood changes, low energy, changes in appearance of eyes or vision changes, tremors, increased diaphoresis or dry skin. ? Lost 10 lbs in the last couple of years. Patient denies any difficulty swallowing, pain on swallowing or voice changes or difficulty breathing. Patient denies any history of childhood neck radiation. Denies having ever used lithium, amiodarone or biotin supplements. Patient denies any family history of thyroid cancer or thyroid disease. Review of systems Constitutional: no fevers, chills or weight loss HEENT: no changes in vision Cardiac: No chest pain, discomfort or palpitations. Pulmonary: No SOB GI:No abdominal pain, no nausea or vomiting, no anorexia, no blood in stool : no burning micturition, dysuria or increase in urinary frequency Neurologic: No dizziness, no weakness in extremities MSK: no back pain or joint stiffness Interval history She reports feeling well overall She denies compressive symptoms like dysphagia, bolus sensation or cough Physical exam General: Well appearing. NAD. Neck/Thyroid: Thyroid palpable, right side nodule palpated CV: RRR, no murmur. No edema. Resp:Lungs clear to auscultation bilaterally Abdomen: Soft, nontender. nondistended Extremities/Neuro: No weakness or tremor of outstretched hands Laboratory Tests 08/04/25 08:30 TSH 1.16 Free T4 1.01 09/11/22 06/01/24 07:24 06:39 TSH 1.30 1.17 Free T4 1.05 Thyroid US 07/07/25 COMPARISON: Jeevan is made with the prior examination dated 06/02/2024. FINDINGS: SIZE: The right thyroid lobe measures 5.8 x 2.1 x 2.3 cm. The left thyroid lobe measures 4.9 x 1.5 x 1.2 cm. The isthmus measures 2 mm. FLOW: Flow to the gland is increased. ECHOGENICITY: The echotexture of the gland is homogeneous. NODULES: Again seen is a dominant nodule on the right as described below: Nodule #: 1 Location: Midportion of the right thyroid lobe measuring 3.1 x 1.6 x 1.9 cm (previously 2.7 x 1.3 x 1.9 cm). Shape: Wider than tall (0 points) Margins: Smooth (0 points) Echotexture: Isoechoic (1 point) Composition: Mostly solid (2 points) Calcifications: Punctate calcifications (3 points) Total points: 6 TIRADS: TR4: Moderately suspicious. IMPRESSION: Slight interval increase in size of the previously seen nodule at the lower pole of the right thyroid lobe. This was previously biopsied on 07/27/2024 and shown to be benign. US THYROID 06/02 CLINICAL INFORMATION: Nontoxic single thyroid nodule. COMPARISON: None available. TECHNIQUE: Linear transducer grayscale and color Doppler examination with attention to the region of the thyroid. FINDINGS: SIZE: Measurements of the thyroid lobes and nodules are given in sagittal, anteroposterior and transverse dimensions respectively. Right Thyroid Lobe: 5.2 x 1.9 x 1.9 cm, volume 10.0 mL. Parenchyma: The gland echotexture is homogeneous. Thyroid vascularity is normal. Left Thyroid Lobe: 4.4 x 1.2 x 1.2 cm, volume 3.3 mL. Parenchyma: The gland echotexture is homogeneous. Thyroid vascularity is normal. Isthmus: 0.09 cm in maximum AP dimension. Estimated total number of nodules greater than or equal to 1 cm: 1. Centrifugal Separator nodules are described as follows: 1. Location: Right mid/lower pole. Size: 2.7 x 1.3 x 1.9 cm, volume 3.3 mL. Nodule characteristics: Composition: Solid/almost completely solid (2). Echogenicity: Isoechoic (1). Shape: Not taller than wide (0). Margins: Smooth (0). Echogenic Foci: Punctate echogenic foci (3). ACR TI-RADS total points: 6 ACR TI-RADS category: 4 NODES: No lymphadenopathy is seen in the tissue surrounding the thyroid gland. US/US thyroid IMPRESSION: A dominant nodule in the right middle Pole 2.7 cm TR 4 nodule . Given its size and ACR TI-RADS category, this nodule meets the ACR criteria recommendation for FNA. FNA recommended. Findings being called to the referring provider's office. [facility] Medical History Abnormal leg movement Restless legs syndrome (RLS) Hypersomnia Snoring Muscle cramps at night Fatty liver Abdominal pain, right lower quadrant Dense breast tissue on mammogram Surgical History Hx of dilation and curettage Hx of section H/O lumpectomy Hx of colonoscopy (~2013) Family History Mother Breast cancer Maternal Aunt Lung cancer Breast cancer Father CHF (congestive heart failure) Brother H/O cardiac radiofrequency ablation Social History Household Members: Spouse Housing: House Alcohol intake: current Alcohol intake frequency: does not drink Patient Tobacco Use Status: Former Tobacco user e-Cigarette/Vaping Use: Never Used service: No Current occupational status: employed 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 Ultrasound May 2024, I reviewed the images myself which showed a solitary right mid/lower lobe thyroid nodule measuring 2.7 cm in the largest dimension, solid, isoechoic, with macrocalcifications, TR 4 category. Meets criteria for FNA. Labs from May 2024 shows she is biochemically euthyroid. 07/27/2024: Underwent biopsy of the right mid/lower 2.7 cm nodule which came back with benign cytology ([place] category 2). New 07/07/25: Thyroid US showed increase in largest dimension from 2.7 ? 3.1 cm (~15%), indicating absolute increase >=2 mm in at least one dimension but does not quite meet >=0% in two dimensions, but shows meaningful interval growth. Given that there are concerning features: punctate (micro)calcifications, size now >3 cm, large nodules have a higher false-negative rate ( due to sampling error), a repeat FNA would be recommended. Plan: Repeat FNA Plan 30 minutes spent reviewing previous records, labs, imaging, education and documenting in the chart Orders: Orders 2 US biopsy thyroid Today E04.1 - Nontoxic single thyroid nodule Coding Level of Care Code Est Pt Level 4 (48448) Add On Problem Visit Only Diagnoses Thyroid nodule E04.1
--- OUTSIDE RECORDS SUMMARY | 2025-08-11 19:36 | XMS_ITS | Patient Health Record ---
Author Organization [facility] Address [address] [place] [address] Care Team Providers Care Tire Bagger Name Role Phone Beverley (RETIRED) Brent BAINS Primary Care Provide r Unavailable Chad Rosenthal Jr Unavailable [phone] Reason For Referral No Information Medications Medication [...] Status Risk Notes Problem Colon cancer screening ([id number]) Colon cancer screening (V76.51) Active confirmed Plan Of Treatment Future Test Test Name Order Date COLONOSCOPY 01/25/2014 Insurance Providers Payer Name Payer Address Payer Phone Subscriber Number Group Number Insured Name Patient Relationship to Insured Coverage Start Date Coverage End Date [facility] [address] [place] [address] [id number] MARGY BURNETTE Self - patient is the insured Medical (General) History Medical History History ICD Code Denies [place],DM,CVA,Lung disease,renal dise ase Surgical History Surgery Date(Month/Year) dilatation and curettage
== END 2025-08-11 14:51 | disposition home or self-care (01) ==
LOC: HO.ENCR 14:22
PROVIDERS: PCP Nurse Practitioner Family; Visit Provider Student in an Organized Health Care Education/Training Program
DX: E04.1 Nontoxic single thyroid nodule (principal)
CPT/HCPCS: 99214

== ENCOUNTER 2025-08-23 07:51 | Outpatient (REF) | payer BC, SELFPAY ==
--- OUTSIDE RECORDS SUMMARY | 2025-08-23 07:55 | XMS_ITS | Patient Health Record ---
Author Organization [facility] Address [address] [place] [address] Care Team Providers Care French Translator Name Role Phone Beverley (RETIRED) Brent BAINS Primary Care Provide r Unavailable Chad Rosenthal Jr Unavailable [phone] Reason For Referral No Information Medications Medication [...] Status Risk Notes Problem Colon cancer screening ([id number]) Colon cancer screening (V76.51) Active confirmed Plan Of Treatment Future Test Test Name Order Date COLONOSCOPY 01/25/2014 Insurance Providers Payer Name Payer Address Payer Phone Subscriber Number Group Number Insured Name Patient Relationship to Insured Coverage Start Date [facility]age End Date [facility] [address] [place] [address] [id number] MARGY BURNETTE Self - patient is the insured Medical (General) History Medical History History ICD Code Denies [place],DM,CVA,Lung disease,renal dise ase Surgical History Surgery Date(Month/Year) dilatation and curettage
--- NOTE | 2025-08-23 08:33 | PM.PROC ---
Brief Operative Note Date of procedure: 08/23/25 Pre-op diagnosis: right mid/lower 2.7 cm Post-op diagnosis: same Procedure: INDICATION: right mid/lower 2.7 cm thyroid nodule; FNA performed to assess for malignancy DESCRIPTION OF PROCEDURE: The indications for FNA (to assess for malignancy) were reviewed with the patient in detail. Potential complications (e.g., bleeding, infection, damage to local structures, absence of clear diagnosis after FNA) were reviewed. Alternatives to FNA including conservative observation or surgery were described. The patient understood and agreed to proceed. This was documented by the signing of the written informed consent form. A time-out was performed to confirm the patient's identity and the site of planned FNA. The nodule of interest was identified using ultrasound (14 MHz linear array probe). The site of FNA was then draped in the usual fashion and carefully cleaned and prepared using alcohol swabs. The skin at the previously-identified site of needle insertion was iced and sprayed with numbing spray. Under ultrasound guidance, 4 passes were performed using a 1.5-inch, 22-gauge needle, and sample was obtained via capillary action. The needle tip was clearly visualized to be within the nodule at the time of sampling for 4 of 4 passes The patient tolerated the procedure well. There were no immediate complications. A small adhesive bandage was applied, and the patient was advised to take acetaminophen (rather than NSAIDs) for any discomfort and to report any signs of inflammation/infection or marked swelling. IMPRESSION: Technically successful ultrasound-guided fine needle aspiration of right mid/lower 2.7 cm thyroid nodule. PLAN: The patient was advised that I will provide follow-up regarding the cytology result and any subsequent plans. Enrico Hernandez MD Endocrinology Attending Surgeon: Enirco Hernandez Condition: stable Disposition: same day
== END 2025-08-23 07:52 | disposition home or self-care (01) ==
LOC: HO.US 07:51
PROVIDERS: PCP Nurse Practitioner Family; Visit Provider Student in an Organized Health Care Education/Training Program
DX: E04.1 Nontoxic single thyroid nodule (principal)
CPT/HCPCS: 10005; 88173; 88305

== ENCOUNTER → 2025-08-23 07:51 | Outpatient (BNV) | payer BC, SELFPAY | PROVIDERS: PCP Nurse Practitioner Family; Visit Provider Student in an Organized Health Care Education/Training Program | DX: E04.1 Nontoxic single thyroid nodule (principal) | CPT/HCPCS: 10005 ==